=== PATIENT | male | born 1950 | race Two or more races ===

== ENCOUNTER → 2016-04-19 | Outpatient (CLI) | payer OTHER ==
[2016-04-19 09:43] LABS: Urine RBC None Seen /hpf (0 - 3)
[2016-04-19 10:02] LABS: Urine Bilirubin Negative (Negative); Urine Blood Negative /uL (Negative); Urine Color Yellow (Yellow); Urine Glucose Normal (Normal); Urine Ketone Negative (Negative); Urine Mucus FEW (None Seen); Urine Nitrite Negative (Negative); Urine Urobilinogen Normal (Negative)
[2016-04-19 10:43] LABS: Albumin 3.8 g/dL (3.4-5.0); Basophils # (auto) 0.2 uL; Basophils % (auto) 1.9 % (0.0-2.0); Bilirubin, Total 0.4 mg/dL (0.2-1.0); Calcium 8.7 mg/dL (8.5-10.1); Eosinophils # (auto) 0.5 uL; Hematocrit 51.7 % (41.0-53.0); Hemoglobin 16.5 g/dL (13.5-17.5); Lymphocytes # (auto) 1.5 uL; Lymphocytes % (auto) 14.5 % (10.0-50.0); Mean Corpuscular Hemoglobin 28.7 pg (28.0-32.0); Mean Corpuscular Volume 89.8 fL (80.0-100.0); Mean Platelet Volume 8.8 fL (7.4-10.4); Monocytes # (auto) 0.7 uL; Monocytes % (auto) 6.7 % (0.0-12.0); Neutrophils # (auto) 7.5 uL; Neutrophils % (auto) 71.9 % (37.0-80.0); Platelet Count (auto) 193 10^3/uL (140-450); Potassium 4.5 mmol/L (3.5-5.1); Red Cell Distribution Width 15.2 % (11.6-16.0); Total Protein 7.3 g/dL (6.4-8.2); White Blood Cell 10.4 10^3/uL (4.4-10.8)
[2016-04-20 05:05] LABS: Thyroid Peroxidase (TPO) Ab 7 IU/mL (0-34)
== END | disposition home or self-care (01) ==
LOC: LAB 08:42
PROVIDERS: ATTEND Internal Medicine
DX: M81.0 Age-related osteoporosis without current pathological fracture (principal)
CPT/HCPCS: 36415; 80053; 80061; 81001; 82043; 84153; 84439; 84443; 85025; 85652; 86225; 86235

== ENCOUNTER → 2016-06-07 | Outpatient (CLI) | payer OTHER | END | disposition home or self-care (01) | LOC: XYW 10:47 | PROVIDERS: ATTEND Internal Medicine | DX: Z01.818 Encounter for other preprocedural examination (principal); I05.0 Rheumatic mitral stenosis; I35.0 Nonrheumatic aortic (valve) stenosis; F17.200 Nicotine dependence, unspecified, uncomplicated | CPT/HCPCS: 93306 ==

== ENCOUNTER 2016-06-29 05:59 | Day surgery (SDC) | payer OTHER ==
[2016-06-24 11:20] LABS: Urine RBC None Seen /hpf (0 - 3)
[2016-06-24 11:22] LABS: DEFINITIVE VIEW TRANSMISSION; Hematocrit 52.8 % (41.0-53.0); Hemoglobin 17.2 g/dL (13.5-17.5); Mean Corpuscular Hemoglobin 28.8 pg (28.0-32.0); Mean Corpuscular Hgb Conc. 32.6 g/dL (32.0-36.0); Mean Corpuscular Volume 88.3 fL (80.0-100.0); Mean Platelet Volume 7.5 fL (7.4-10.4); Platelet Count (auto) 236 10^3/uL (140-450); White Blood Cell 10.6 10^3/uL (4.4-10.8)
[2016-06-24 11:26] LABS: Urine Bilirubin Negative (Negative); Urine Blood Negative /uL (Negative); Urine Color Yellow (Yellow); Urine Glucose Normal (Normal); Urine Ketone Negative (Negative); Urine Nitrite Negative (Negative); Urine Squamous Epithelial Cell FEW /hpf (<5); Urine Urobilinogen Normal (Negative)
[2016-06-24 11:30] LABS: Metamyelocytes % 0; Myelocytes % 0; Promyelocytes % 0; Reactive Lymphocytes 0
[2016-06-24 11:38] LABS: INR 0.96 (0.9-1.15); Prothrombin Time 10.4 sec (9.37-12.3)
[2016-06-24 11:39] LABS: Platelet Estimate Adequate; RBC Morphology Normal
[2016-06-24 11:45] LABS: Albumin 4.1 g/dL (3.4-5.0); Bilirubin, Total 0.5 mg/dL (0.2-1.0); Calcium 9.5 mg/dL (8.5-10.1); Potassium 4.5 mmol/L (3.5-5.1); Total Protein 7.9 g/dL (6.4-8.2)
[~2016-06-29] VITALS: Ht 160 cm; Wt 76.7 kg
[~2016-06-29 05:59] MED LIST: ALBUAER3 IN; BECL0.07 INH
[2016-06-29] MEDS ORDERED: LIDOCAINE 1% HCL (LOCAL ANESTH.) INJ 20ML MDV ONE (06:37)
[2016-06-29] MEDS ORDERED: BUPIVACAINE W/ EPINEPH 0.25% INJ 50ML MDV ONE (06:37)
[2016-06-29] MEDS ORDERED: BUPIVACAINE 0.25% INJ 50ML VIAL ONE (06:37)
[2016-06-29] MEDS ORDERED: LIDOCAINE W/ EPINEPHRINE 1 % INJ 30ML ONE (06:37)
[2016-06-29] MEDS ORDERED: ceFAZolin 1GM VL ONE (06:37)
[2016-06-29] MEDS ORDERED: CLINDAMYCIN 600MG IV 0 ML IV ONE (06:51)
[2016-06-29] MEDS ORDERED: CLINDAMYCIN 600MG IV 50 ML IV ONE (06:56)
[2016-06-29] MEDS ORDERED: BUPIVACAINE HCL 50 ML ONE (07:05)
[2016-06-29] MEDS ORDERED: PROPOFOL 10 MG/ML 20 ML IV ONE (07:18)
[2016-06-29] MEDS ORDERED: ROCURONIUM 10MG/ML 10ML VIAL IV ONE (07:19)
[2016-06-29] MEDS ORDERED: fentaNYL CITRATE 100 MCG/2 ML VL ONE (07:19)
[2016-06-29] MEDS ORDERED: LABETALOL HCL 5 MG/ML 4ML SYRINGE IV ONE ×4 (07:26→09:30)
[2016-06-29] MEDS ORDERED: MIDAZOLAM HCL 1MG/1ML-2 ML VIAL ONE (07:27)
[2016-06-29] MEDS ORDERED: NEOSTIGMINE 1 MG/ML INJ (10mg/10ML VIAL) ONE (08:21)
[2016-06-29] MEDS ORDERED: GLYCOPYRROLATE 0.2 MG/ML 1ML VIAL ONE (08:21)
[2016-06-29] MEDS ORDERED: HYDROmorphone HCL 2 MG/ML VL IV PRN (09:00)
[2016-06-29] MEDS ORDERED: ONDANSETRON HCL 4 MG/2 ML VIAL IV ONE (09:00)
[2016-06-29] MEDS ORDERED: ALBUTEROL SULF 2.5 MG/0.5ML(0.5%) NEB SOLN NEB ONE (09:15)
[2016-06-29] MEDS ORDERED: ALBUTEROL SULF 2.5 MG/0.5ML(0.5%) NEB SOLN ONE (09:17)
[2016-06-29] MEDS ORDERED: IPRATROPIUM BROM 0.5 MG/2.5ML INH SOL ONE (09:17)
[2016-06-29] MEDS ORDERED: IPRATROPIUM BROM 0.5 MG/2.5ML INH SOL NEB ONE (09:30)
[2016-06-29 10:45] VITALS: BP 103/52
== END 2016-06-29 10:59 | disposition home or self-care (01) ==
LOC: SUR 05:59
PROVIDERS: ATTEND Surgery
DX: K40.90 Unilateral inguinal hernia, without obstruction or gangrene, not specified as recurrent (principal); D17.6 Benign lipomatous neoplasm of spermatic cord; J45.909 Unspecified asthma, uncomplicated; Z87.891 Personal history of nicotine dependence
CPT/HCPCS: 36415; 49505; 55520; 80053; 81001; 85007; 85027; 85610; 85730; C1781; J2001; J2250; J2405; J2704; J3010; J3490; J0690

== ENCOUNTER 2016-07-12 07:46 | Inpatient (IN) | payer OTHER, MEDICAID ==
[~2016-07-12] VITALS: Ht 160 cm; Wt 74.2 kg
[2016-07-12 08:36] LABS: Basophils # (auto) 0 uL; Basophils % (auto) 0.1 % (0.0-2.0); DEFINITIVE VIEW TRANSMISSION; Eosinophils # (auto) 1.3 uL; Hematocrit 50.2 % (41.0-53.0); Hemoglobin 16.4 g/dL (13.5-17.5); Lymphocytes # (auto) 1.5 uL; Mean Corpuscular Hemoglobin 28.7 pg (28.0-32.0); Mean Corpuscular Hgb Conc. 32.7 g/dL (32.0-36.0); Mean Corpuscular Volume 87.8 fL (80.0-100.0); Mean Platelet Volume 7.5 fL (7.4-10.4); Monocytes # (auto) 0.5 uL; Monocytes % (auto) 3.4 % (0.0-12.0); Neutrophils # (auto) 11.6 uL; Neutrophils % (auto) 77.5 % (37.0-80.0); Platelet Count (auto) 268 10^3/uL (140-450); Red Cell Distribution Width 15.6 % (11.6-16.0); White Blood Cell 14.9 10^3/uL (4.4-10.8)
[2016-07-12 08:47] LABS: Calcium 9.1 mg/dL (8.5-10.1); Potassium 4.7 mmol/L (3.5-5.1)
[2016-07-12 08:49] LABS: INR 0.98 (0.9-1.15); Partial Thromboplastin Time 24.5 sec (22.64-33.71); Prothrombin Time 10.6 sec (9.37-12.3)
[2016-07-12 08:51] LABS: Bilirubin, Total 0.5 mg/dL (0.2-1.0); Total Protein 7.8 g/dL (6.4-8.2)
[2016-07-12] MEDS ORDERED: methylPREDNISolone SOD SUCC 125 MG/2 ML VL IV ONE (09:45)
[2016-07-12] MEDS ORDERED: IPRATROPIUM BROM 0.5 MG/2.5ML INH SOL NEB ONE (10:30)
[2016-07-12] MEDS ORDERED: ALBUTEROL SULF 2.5 MG/0.5ML(0.5%) NEB SOLN NEB ONE (10:30)
[2016-07-12] MEDS ORDERED: LEVOFLOXACIN 500MG 100 ML IV ONE (10:30)
[2016-07-12] MEDS ORDERED: IOHEXOL 350 MG/ML 100ML IJ ONE (11:44)
[2016-07-12] MEDS ORDERED: MORPHINE SULF INJ 2 MG/ML SYRINGE 1ML IV PRN ×2 (13:30)
[2016-07-12] MEDS ORDERED: DOCUSATE SOD 100 MG CAP PO PRN (13:30)
[2016-07-12] MEDS ORDERED: cloNIDine HCL 0.1 MG TAB PO PRN (13:30)
[2016-07-12] MEDS ORDERED: DEXTROSE (50%) 50ML SYRG IV PRN (13:30)
[2016-07-12] MEDS ORDERED: TEMAZEPAM 15 MG CAP PO PRN (13:30)
[2016-07-12] MEDS ORDERED: ACETAMINOPHEN 325 MG TAB PO PRN (13:30)
[2016-07-12] MEDS ORDERED: NITROGLYCERIN 0.4 MG SL TAB SL PRN (13:30)
[2016-07-12] MEDS ORDERED: ONDANSETRON HCL 4 MG/2 ML VIAL IV PRN (13:30)
[2016-07-12 13:42] VITALS: BP 140/79
[2016-07-12] MEDS: ASPirin-EC 81 mg tab PO SCH (13:45)
[2016-07-12] MEDS: SODIUM CHLOR 0.9% PF (SALINE LOCK) 10ML VIAL IV SCH ×2 (14:00→21:43)
[2016-07-12] MEDS: IPRATROPIUM BROM 0.5 MG/2.5ML INH SOL NEB SCH ×3 (14:49→22:14)
[2016-07-12] MEDS: ALBUTEROL SULF 2.5 MG/0.5ML(0.5%) NEB SOLN NEB SCH ×3 (14:49→22:14)
[2016-07-12] MEDS ORDERED: ASPI81CH43 (16:42)
[2016-07-12] MEDS: ACCU-CHEK COMFORT CURVE STRIP VI SCH ×2 (17:00→21:43)
[2016-07-12] MEDS: InsuLIN REG 1unit/0.01ml Soln (100units/ml) SC SCH ×2 (17:00→21:43)
[2016-07-12 17:23] LABS: B-Type Natriuretic Peptide 29.34 pg/mL (0-100)
[2016-07-12 17:25] LABS: Temperature: 23.5 C (20.0-25.0)
[2016-07-12 20:00] VITALS: BP 150/67
[2016-07-12 22:00] VITALS: BP 150/67
[2016-07-12] MEDS ORDERED: ASPI81CH49 PO (22:53)
[2016-07-12] MEDS: methylPREDNISolone SOD SUCC 40 MG/ML VL IV SCH (23:55)
[2016-07-13] MEDS: IPRATROPIUM BROM 0.5 MG/2.5ML INH SOL NEB SCH ×6 (02:15→22:03)
[2016-07-13] MEDS: ALBUTEROL SULF 2.5 MG/0.5ML(0.5%) NEB SOLN NEB SCH ×6 (02:16→22:03)
[2016-07-13 05:30] VITALS: BP 139/69
[2016-07-13] MEDS: SODIUM CHLOR 0.9% PF (SALINE LOCK) 10ML VIAL IV SCH ×3 (05:34→22:37)
[2016-07-13] MEDS: methylPREDNISolone SOD SUCC 40 MG/ML VL IV SCH ×3 (05:34→17:36)
[2016-07-13 06:06] LABS: Hematocrit 47.9 % (41.0-53.0); Hemoglobin 15.6 g/dL (13.5-17.5); Mean Corpuscular Hemoglobin 28.9 pg (28.0-32.0); Mean Corpuscular Hgb Conc. 32.6 g/dL (32.0-36.0); Mean Corpuscular Volume 88.7 fL (80.0-100.0); Mean Platelet Volume 7.9 fL (7.4-10.4); Platelet Count (auto) 251 10^3/uL (140-450); Red Cell Distribution Width 15.8 % (11.6-16.0); SUSPECT VIEW TRANSMISSION; White Blood Cell 19.3 10^3/uL (4.4-10.8)
[2016-07-13] MEDS: ACCU-CHEK COMFORT CURVE STRIP VI SCH ×4 (06:14→22:00)
[2016-07-13] MEDS: InsuLIN REG 1unit/0.01ml Soln (100units/ml) SC SCH ×4 (06:15→22:00)
[2016-07-13 06:28] LABS: Metamyelocytes % 0; Myelocytes % 0; Promyelocytes % 0; Reactive Lymphocytes 0
[2016-07-13 06:32] LABS: Albumin 3.4 g/dL (3.4-5.0); BUN/Creatinine Ratio 19.5; Bilirubin, Total 0.2 mg/dL (0.2-1.0); Calcium 8.8 mg/dL (8.5-10.1); Potassium 4.5 mmol/L (3.5-5.1); Total Protein 7.1 g/dL (6.4-8.2)
[2016-07-13 06:59] LABS: Hypersegmented Neutrophils Present; Platelet Estimate Adequate
[2016-07-13 07:00] LABS: Anisocytosis Slight
[2016-07-13 08:00] VITALS: BP 121/77
[2016-07-13 09:00] VITALS: BP 121/77
[2016-07-13] MEDS: ASPirin-EC 81 mg tab PO SCH (09:21)
[2016-07-13] MEDS: MULTIPLE VITAMIN TAB PO SCH (09:21)
[2016-07-13] MEDS ORDERED: LEVOFLOXACIN 500MG 100 ML IV SCH (10:00)
[2016-07-13] MEDS ORDERED: AZITHROMYCIN 500MG/D5W 250ML 250 ML IV ONE (10:30)
[2016-07-13 13:41] VITALS: BP 133/60
[2016-07-13 16:37] VITALS: BP 135/78
[2016-07-13 22:00] VITALS: BP 114/69
[2016-07-13] MEDS: HYDROcodone-ACET 5/325MG TAB PO PRN (22:37)
[2016-07-14] MEDS: methylPREDNISolone SOD SUCC 40 MG/ML VL IV SCH ×3 (00:18→22:03)
[2016-07-14 05:30] VITALS: BP 125/69
[2016-07-14] MEDS: IPRATROPIUM BROM 0.5 MG/2.5ML INH SOL NEB SCH ×5 (06:28→22:05)
[2016-07-14] MEDS: ALBUTEROL SULF 2.5 MG/0.5ML(0.5%) NEB SOLN NEB SCH ×5 (06:28→22:05)
[2016-07-14] MEDS: SODIUM CHLOR 0.9% PF (SALINE LOCK) 10ML VIAL IV SCH ×3 (06:40→22:01)
[2016-07-14] MEDS: ACCU-CHEK COMFORT CURVE STRIP VI SCH ×4 (06:41→22:00)
[2016-07-14] MEDS: InsuLIN REG 1unit/0.01ml Soln (100units/ml) SC SCH ×4 (07:06→22:00)
[2016-07-14 07:19] LABS: Hematocrit 49.3 % (41.0-53.0); Hemoglobin 16.1 g/dL (13.5-17.5); Mean Corpuscular Hemoglobin 28.8 pg (28.0-32.0); Mean Corpuscular Hgb Conc. 32.6 g/dL (32.0-36.0); Mean Corpuscular Volume 88.4 fL (80.0-100.0); Mean Platelet Volume 8.1 fL (7.4-10.4); Platelet Count (auto) 283 10^3/uL (140-450); Red Cell Distribution Width 15.9 % (11.6-16.0); SUSPECT VIEW TRANSMISSION; White Blood Cell 21.4 10^3/uL (4.4-10.8)
[2016-07-14 07:31] LABS: Metamyelocytes % 0; Myelocytes % 0; Promyelocytes % 0; Reactive Lymphocytes 0
[2016-07-14 07:37] LABS: Albumin 3.5 g/dL (3.4-5.0); BUN/Creatinine Ratio 19.4; Bilirubin, Total 0.2 mg/dL (0.2-1.0); Calcium 8.9 mg/dL (8.5-10.1); Potassium 4.4 mmol/L (3.5-5.1); Total Protein 7.3 g/dL (6.4-8.2)
[2016-07-14 08:00] VITALS: BP 134/77
[2016-07-14 09:00] VITALS: BP 134/77
[2016-07-14] MEDS: cefTRIAXone 1GM/50ML D5W 50 ML IV SCH (10:42)
[2016-07-14] MEDS: ASPirin-EC 81 mg tab PO SCH (10:43)
[2016-07-14] MEDS: AZITHROMYCIN 500MG/D5W 250ML 250 ML IV SCH (10:43)
[2016-07-14] MEDS: MULTIPLE VITAMIN TAB PO SCH (10:43)
[2016-07-14] MEDS: HYDROcodone-ACET 5/325MG TAB PO PRN (12:10)
[2016-07-14 13:49] VITALS: BP 126/67
[2016-07-14 14:30] LABS: Platelet Estimate Adequate
[2016-07-14 16:39] VITALS: BP 132/77
[2016-07-14 22:00] VITALS: BP 117/73
[2016-07-14] MEDS: BUDESONIDE (INHALATION) 0.5 MG/2 ML NEB NEB SCH (22:05)
[2016-07-15] MEDS: ALBUTEROL SULF 2.5 MG/0.5ML(0.5%) NEB SOLN NEB SCH ×6 (02:00→22:07)
[2016-07-15] MEDS: IPRATROPIUM BROM 0.5 MG/2.5ML INH SOL NEB SCH ×6 (02:00→22:07)
[2016-07-15 05:44] VITALS: BP 123/71
[2016-07-15] MEDS: SODIUM CHLOR 0.9% PF (SALINE LOCK) 10ML VIAL IV SCH ×3 (06:00→22:19)
[2016-07-15 06:16] LABS: Basophils # (auto) 0.1 uL; Basophils % (auto) 0.4 % (0.0-2.0); Eosinophils # (auto) 0 uL; Hematocrit 48.4 % (41.0-53.0); Hemoglobin 15.7 g/dL (13.5-17.5); Lymphocytes # (auto) 0.7 uL; Lymphocytes % (auto) 4.5 % (10.0-50.0); Mean Corpuscular Hemoglobin 28.7 pg (28.0-32.0); Mean Corpuscular Hgb Conc. 32.5 g/dL (32.0-36.0); Mean Corpuscular Volume 88.3 fL (80.0-100.0); Mean Platelet Volume 7.7 fL (7.4-10.4); Monocytes # (auto) 0.2 uL; Monocytes % (auto) 1.5 % (0.0-12.0); Neutrophils # (auto) 13.6 uL; Neutrophils % (auto) 93.6 % (37.0-80.0); Platelet Count (auto) 249 10^3/uL (140-450); Red Cell Distribution Width 15.8 % (11.6-16.0); White Blood Cell 14.5 10^3/uL (4.4-10.8)
[2016-07-15 06:24] LABS: BUN/Creatinine Ratio 21.9; Calcium 8.5 mg/dL (8.5-10.1); Potassium 4.9 mmol/L (3.5-5.1)
[2016-07-15] MEDS: ACCU-CHEK COMFORT CURVE STRIP VI SCH ×4 (06:40→22:19)
[2016-07-15] MEDS: InsuLIN REG 1unit/0.01ml Soln (100units/ml) SC SCH ×4 (06:40→22:00)
[2016-07-15 08:00] VITALS: BP_SYST 127; BP_SYST 134; BP_DIAS 70; BP_DIAS 77
[2016-07-15] MEDS: HYDROcodone-ACET 5/325MG TAB PO PRN (08:50)
[2016-07-15] MEDS: methylPREDNISolone SOD SUCC 40 MG/ML VL IV SCH ×2 (09:06→22:19)
[2016-07-15] MEDS: cefTRIAXone 1GM/50ML D5W 50 ML IV SCH (09:06)
[2016-07-15] MEDS: MULTIPLE VITAMIN TAB PO SCH (09:08)
[2016-07-15] MEDS: ASPirin-EC 81 mg tab PO SCH (09:08)
[2016-07-15] MEDS: AZITHROMYCIN 500MG/D5W 250ML 250 ML IV SCH (09:09)
[2016-07-15] MEDS: BUDESONIDE (INHALATION) 0.5 MG/2 ML NEB NEB SCH ×2 (10:08→22:07)
[2016-07-15 10:33] VITALS: BP 123/71
[2016-07-15 13:00] VITALS: BP 136/81
[2016-07-15 17:00] VITALS: BP 137/78
[2016-07-15 22:00] VITALS: BP 138/83
[2016-07-16] MEDS: IPRATROPIUM BROM 0.5 MG/2.5ML INH SOL NEB SCH ×6 (02:02→22:30)
[2016-07-16] MEDS: ALBUTEROL SULF 2.5 MG/0.5ML(0.5%) NEB SOLN NEB SCH ×6 (02:03→22:30)
[2016-07-16 05:00] VITALS: BP 147/92
[2016-07-16] MEDS: SODIUM CHLOR 0.9% PF (SALINE LOCK) 10ML VIAL IV SCH ×3 (06:28→22:01)
[2016-07-16] MEDS: InsuLIN REG 1unit/0.01ml Soln (100units/ml) SC SCH ×4 (06:33→22:06)
[2016-07-16] MEDS: ACCU-CHEK COMFORT CURVE STRIP VI SCH ×4 (06:33→22:01)
[2016-07-16 06:42] LABS: Basophils # (auto) 0.1 uL; Basophils % (auto) 0.7 % (0.0-2.0); Eosinophils # (auto) 0 uL; Hematocrit 49.6 % (41.0-53.0); Hemoglobin 16.1 g/dL (13.5-17.5); Lymphocytes # (auto) 0.9 uL; Lymphocytes % (auto) 7.2 % (10.0-50.0); Mean Corpuscular Hemoglobin 28.7 pg (28.0-32.0); Mean Corpuscular Hgb Conc. 32.4 g/dL (32.0-36.0); Mean Corpuscular Volume 88.4 fL (80.0-100.0); Mean Platelet Volume 7.6 fL (7.4-10.4); Monocytes # (auto) 0.3 uL; Monocytes % (auto) 2.7 % (0.0-12.0); Neutrophils # (auto) 11.5 uL; Neutrophils % (auto) 89.4 % (37.0-80.0); Platelet Count (auto) 276 10^3/uL (140-450); Red Cell Distribution Width 15.8 % (11.6-16.0); White Blood Cell 12.8 10^3/uL (4.4-10.8)
[2016-07-16 07:09] LABS: BUN/Creatinine Ratio 21.6; Calcium 8.6 mg/dL (8.5-10.1); Potassium 4.8 mmol/L (3.5-5.1)
[2016-07-16 09:00] VITALS: BP 133/75
[2016-07-16] MEDS: BUDESONIDE (INHALATION) 0.5 MG/2 ML NEB NEB SCH ×2 (09:55→22:30)
[2016-07-16] MEDS: cefTRIAXone 1GM/50ML D5W 50 ML IV SCH (10:29)
[2016-07-16] MEDS: methylPREDNISolone SOD SUCC 40 MG/ML VL IV SCH ×2 (10:29→22:01)
[2016-07-16] MEDS: ASPirin-EC 81 mg tab PO SCH (10:30)
[2016-07-16] MEDS: MULTIPLE VITAMIN TAB PO SCH (10:30)
[2016-07-16] MEDS: AZITHROMYCIN 500MG/D5W 250ML 250 ML IV SCH (11:35)
[2016-07-16 13:00] VITALS: BP 124/80
[2016-07-16 17:00] VITALS: BP 142/81
[2016-07-16 21:50] VITALS: BP 145/80
[2016-07-16] MEDS: guaiFENesin-DEXTROMETHORPHAN 5ML SYR PO PRN (22:01)
[2016-07-17] MEDS: ALBUTEROL SULF 2.5 MG/0.5ML(0.5%) NEB SOLN NEB SCH ×6 (02:00→23:21)
[2016-07-17] MEDS: IPRATROPIUM BROM 0.5 MG/2.5ML INH SOL NEB SCH ×6 (02:00→23:21)
[2016-07-17 05:36] VITALS: BP 144/85
[2016-07-17 05:59] LABS: Basophils # (auto) 0.1 uL; Basophils % (auto) 0.4 % (0.0-2.0); Eosinophils # (auto) 0 uL; Hemoglobin 16.3 g/dL (13.5-17.5); Lymphocytes # (auto) 1.2 uL; Lymphocytes % (auto) 8.1 % (10.0-50.0); Mean Corpuscular Hemoglobin 28.8 pg (28.0-32.0); Mean Corpuscular Hgb Conc. 32.5 g/dL (32.0-36.0); Mean Corpuscular Volume 88.5 fL (80.0-100.0); Mean Platelet Volume 7.6 fL (7.4-10.4); Monocytes # (auto) 0.6 uL; Monocytes % (auto) 4.5 % (0.0-12.0); Neutrophils # (auto) 12.4 uL; Platelet Count (auto) 265 10^3/uL (140-450); White Blood Cell 14.3 10^3/uL (4.4-10.8)
[2016-07-17] MEDS: ACCU-CHEK COMFORT CURVE STRIP VI SCH ×4 (06:34→22:08)
[2016-07-17] MEDS: SODIUM CHLOR 0.9% PF (SALINE LOCK) 10ML VIAL IV SCH ×3 (06:34→22:07)
[2016-07-17] MEDS: InsuLIN REG 1unit/0.01ml Soln (100units/ml) SC SCH ×4 (06:35→22:00)
[2016-07-17 09:00] VITALS: BP 126/76
[2016-07-17] MEDS: cefTRIAXone 1GM/50ML D5W 50 ML IV SCH (09:01)
[2016-07-17] MEDS: BUDESONIDE (INHALATION) 0.5 MG/2 ML NEB NEB SCH ×2 (10:20→23:22)
[2016-07-17] MEDS: ASPirin-EC 81 mg tab PO SCH (10:41)
[2016-07-17] MEDS: MULTIPLE VITAMIN TAB PO SCH (10:41)
[2016-07-17] MEDS: guaiFENesin-DEXTROMETHORPHAN 5ML SYR PO PRN (10:43)
[2016-07-17] MEDS: AZITHROMYCIN 500MG/D5W 250ML 250 ML IV SCH (10:43)
[2016-07-17] MEDS: methylPREDNISolone SOD SUCC 40 MG/ML VL IV SCH ×2 (10:43→22:08)
[2016-07-17 13:00] VITALS: BP 122/74
[2016-07-17 17:00] VITALS: BP 106/48
[2016-07-17 22:00] VITALS: BP 132/77
[2016-07-18] MEDS: IPRATROPIUM BROM 0.5 MG/2.5ML INH SOL NEB SCH ×4 (02:00→14:00)
[2016-07-18] MEDS: ALBUTEROL SULF 2.5 MG/0.5ML(0.5%) NEB SOLN NEB SCH ×4 (02:00→14:00)
[2016-07-18 05:00] VITALS: BP 131/82
[2016-07-18 06:50] VITALS: BP 131/82
[2016-07-18] MEDS: InsuLIN REG 1unit/0.01ml Soln (100units/ml) SC SCH ×2 (06:56→11:08)
[2016-07-18] MEDS: SODIUM CHLOR 0.9% PF (SALINE LOCK) 10ML VIAL IV SCH (06:56)
[2016-07-18] MEDS: ACCU-CHEK COMFORT CURVE STRIP VI SCH ×2 (06:56→10:58)
[2016-07-18] MEDS: cefTRIAXone 1GM/50ML D5W 50 ML IV SCH (08:31)
[2016-07-18 09:00] VITALS: BP 132/85
[2016-07-18] MEDS: BUDESONIDE (INHALATION) 0.5 MG/2 ML NEB NEB SCH (09:57)
[2016-07-18] MEDS: AZITHROMYCIN 500MG/D5W 250ML 250 ML IV SCH (10:24)
[2016-07-18] MEDS: MULTIPLE VITAMIN TAB PO SCH (10:24)
[2016-07-18] MEDS: ASPirin-EC 81 mg tab PO SCH (10:24)
[2016-07-18] MEDS: methylPREDNISolone SOD SUCC 40 MG/ML VL IV SCH (10:24)
[2016-07-18] MEDS: guaiFENesin-DEXTROMETHORPHAN 5ML SYR PO PRN (10:56)
[2016-07-18 13:00] VITALS: BP 128/73
== END 2016-07-18 14:30 | disposition home or self-care (01) | DRG 871 ==
LOC: ER 07:50 → TELE 07:51 → TELE-E-ADS 15:47 → TELE-CENTR 19:29 → CENTRAL 07-15 10:35
PROVIDERS: ADMIT Internal Medicine; ATTEND Internal Medicine
DX: A41.9 Sepsis, unspecified organism (principal); J15.5 Pneumonia due to Escherichia coli; J96.21 Acute and chronic respiratory failure with hypoxia; J44.0 Chronic obstructive pulmonary disease with (acute) lower respiratory infection; J44.1 Chronic obstructive pulmonary disease with (acute) exacerbation; E11.21 Type 2 diabetes mellitus with diabetic nephropathy; E11.22 Type 2 diabetes mellitus with diabetic chronic kidney disease; I12.9 Hypertensive chronic kidney disease with stage 1 through stage 4 chronic kidney disease, or unspecified chronic kidney disease; J44.9 Chronic obstructive pulmonary disease, unspecified; N18.2 Chronic kidney disease, stage 2 (mild); Z83.3 Family history of diabetes mellitus
CPT/HCPCS: 36415; 71020; 71275; 80048; 80053; 82962; 83036; 83605; 83880; 84443; 84484; 85007; 85025; 85027; 85379; 85610; 85730; 87040; 87070; 87077; 87081; 87186; 87205; 93005; 94640; 94761; 96365; 96375; J0696; J1815; J1956

== ENCOUNTER 2016-09-26 10:57 | Emergency (ER) | payer OTHER, MEDICAID ==
[~2016-09-26] VITALS: Ht 160 cm; Wt 76.2 kg
[~2016-09-26 10:57] MED LIST changes: +ASPI81CH49 PO
[2016-09-26 11:38] LABS: Urine Bilirubin Negative (Negative); Urine Blood Negative /uL (Negative); Urine Color Yellow (Yellow); Urine Glucose Normal (Normal); Urine Ketone Negative (Negative); Urine Mucus FEW (None Seen); Urine Nitrite Negative (Negative); Urine RBC <1 /hpf (0 - 3); Urine Urobilinogen Normal (Negative); Urine pH 5.5 (5.0-8.0)
[2016-09-26 11:41] LABS: CONDITION Y; DEFINITIVE SEE PRINTOUT; Hematocrit 47.3 % (41.0-53.0); Hemoglobin 15.7 g/dL (13.5-17.5); Mean Corpuscular Hemoglobin 29.3 pg (28.0-32.0); Mean Corpuscular Hgb Conc. 33.2 g/dL (32.0-36.0); Mean Corpuscular Volume 88.3 fL (80.0-100.0); Mean Platelet Volume 7.4 fL (7.4-10.4); Platelet Count (auto) 246 10^3/uL (140-450); White Blood Cell 10.8 10^3/uL (4.4-10.8)
[2016-09-26 11:44] LABS: Metamyelocytes % 0; Myelocytes % 0; Promyelocytes % 0; Reactive Lymphocytes 0
[2016-09-26 12:04] LABS: Platelet Estimate Adequate; RBC Morphology Normal
[2016-09-26 12:10] LABS: Albumin 3.8 g/dL (3.4-5.0); BUN/Creatinine Ratio 12.2; Bilirubin, Total 0.6 mg/dL (0.2-1.0); Calcium 9.1 mg/dL (8.5-10.1); Magnesium 2.3 mg/dL (1.6-2.6); Potassium 4.2 mmol/L (3.5-5.1); Total Protein 7.2 g/dL (6.4-8.2)
[2016-09-26] MEDS ORDERED: ALBUTEROL SULF 2.5 MG/0.5ML(0.5%) NEB SOLN NEB ONE (15:00)
[2016-09-26] MEDS ORDERED: methylPREDNISolone SOD SUCC 125 MG/2 ML VL IV ONE (15:00)
[2016-09-26] MEDS ORDERED: IPRATROPIUM BROM 0.5 MG/2.5ML INH SOL NEB ONE (15:00)
[2016-09-26] MEDS ORDERED: SODIUM CHLORIDE 0.9% 500 ML IV ONE (15:00)
[2016-09-26 15:59] VITALS: BP 125/72
== END 2016-09-26 17:47 | disposition home or self-care (01) ==
LOC: ER 10:57
DX: J44.1 Chronic obstructive pulmonary disease with (acute) exacerbation (principal); S70.01XA Contusion of right hip, initial encounter; M16.11 Unilateral primary osteoarthritis, right hip; E11.9 Type 2 diabetes mellitus without complications; I10 Essential (primary) hypertension; W18.39XA Other fall on same level, initial encounter; Y93.89 Activity, other specified; Y92.89 Other specified places as the place of occurrence of the external cause; Y99.8 Other external cause status
CPT/HCPCS: 36415; 71020; 73502; 80053; 81001; 83735; 84484; 85007; 85027; 93005; 94640; 96361; 96374; 99285; J2930; J7030

== ENCOUNTER → 2016-10-03 | Outpatient (CLI) | payer OTHER, MEDICAID ==
[~2016-10-03] MED LIST changes: +ALBUTEROL SULF 2.5 MG/0.5ML(0.5%) NEB SOLN ONE
== END | disposition home or self-care (01) ==
LOC: RT 08:46
PROVIDERS: ATTEND Internal Medicine Pulmonary Disease
DX: J44.9 Chronic obstructive pulmonary disease, unspecified (principal); J45.909 Unspecified asthma, uncomplicated; I10 Essential (primary) hypertension; E11.9 Type 2 diabetes mellitus without complications
CPT/HCPCS: 94060; 94640

== ENCOUNTER 2016-10-12 23:21 | Inpatient (IN) | payer OTHER, MEDICAID ==
[~2016-10-12] VITALS: Ht 160 cm; Wt 68.0 kg
[~2016-10-12 23:21] MED LIST changes: -ALBUTEROL SULF 2.5 MG/0.5ML(0.5%) NEB SOLN ONE
[2016-10-12] MEDS ORDERED: IPRATROPIUM BROM 0.5 MG/2.5ML INH SOL NEB ONE (23:30)
[2016-10-12] MEDS ORDERED: methylPREDNISolone SOD SUCC 125 MG/2 ML VL IV ONE (23:30)
[2016-10-12] MEDS ORDERED: ALBUTEROL SULF 2.5 MG/0.5ML(0.5%) NEB SOLN NEB ONE (23:30)
[2016-10-12 23:40] LABS: Allen Test Yes; Base Excess -4.7 mmol/L (-2.0-2.0); Blood 02Sat 97.3 % (96-100); Blood COHb 0.3 % (0.5-1.5); Blood MetHb 0.4 % (0.0-1.5); HCO3 19.6 mmol/L (22-26.0); HHb 2.7 % (0.0-5.0); MODE MASK - BIPAP; O2Hb 96.6 % (94.0-97.0); PCO2 34.3 mmHg (35.0-45.0); PCO2(T) 34.3 mmHg (35.0-45.0); PIP 12; PO2 112.2 mmHg (80.0-100.0); PO2(T) 112.2 mmHg (80.0-100.0); Sample Type Arterial; pH 7.374 (7.350-7.450)
[2016-10-12 23:49] LABS: Basophils # (auto) 0.1 uL; Basophils % (auto) 0.8 % (0.0-2.0); DEFINITIVE SEE PRINTOUT; Eosinophils # (auto) 1.4 uL; Eosinophils % (auto) 10.2 % (0.0-7.0); Hematocrit 48.7 % (41.0-53.0); Hemoglobin 15.9 g/dL (13.5-17.5); Lymphocytes # (auto) 2.6 uL; Lymphocytes % (auto) 19.8 % (10.0-50.0); Mean Corpuscular Hemoglobin 28.8 pg (28.0-32.0); Mean Corpuscular Hgb Conc. 32.6 g/dL (32.0-36.0); Mean Corpuscular Volume 88.4 fL (80.0-100.0); Mean Platelet Volume 7.7 fL (7.4-10.4); Monocytes # (auto) 1.1 uL; Monocytes % (auto) 7.9 % (0.0-12.0); Neutrophils # (auto) 8.2 uL; Neutrophils % (auto) 61.3 % (37.0-80.0); Platelet Count (auto) 196 10^3/uL (140-450); Red Cell Distribution Width 14.6 % (11.6-16.0); SUSPECT SEE PRINTOUT; White Blood Cell 13.4 10^3/uL (4.4-10.8)
[2016-10-13 00:07] LABS: Albumin 3.6 g/dL (3.4-5.0); BUN/Creatinine Ratio 17.2; Calcium 8.4 mg/dL (8.5-10.1); Magnesium 2.1 mg/dL (1.6-2.6); Potassium 4.1 mmol/L (3.5-5.1)
[2016-10-13 00:12] LABS: Bilirubin, Total 0.4 mg/dL (0.2-1.0); Total Protein 7.5 g/dL (6.4-8.2)
[2016-10-13 00:22] LABS: B-Type Natriuretic Peptide 15.03 pg/mL (0-100)
[2016-10-13 00:34] LABS: Temperature: 24.3 C (20.0-25.0)
[2016-10-13 03:19] VITALS: BP 135/77
[2016-10-13] MEDS ORDERED: ALBUTEROL SULF 2.5 MG/0.5ML(0.5%) NEB SOLN NEB ONE (04:15)
[2016-10-13] MEDS ORDERED: IPRATROPIUM BROM 0.5 MG/2.5ML INH SOL NEB ONE (04:15)
[2016-10-13] MEDS ORDERED: SODIUM CHLORIDE 0.9% 1,000 ML IV SCH (05:12)
[2016-10-13] MEDS ORDERED: HYDROmorphone HCL 2 MG/ML VL IV PRN (05:15)
[2016-10-13] MEDS ORDERED: ONDANSETRON HCL 4 MG/2 ML VIAL IV PRN (05:15)
[2016-10-13] MEDS ORDERED: ASPirin 81 mg TAB PO ONE (05:30)
[2016-10-13] MEDS: ALBUTEROL SULF 2.5 MG/0.5ML(0.5%) NEB SOLN NEB SCH ×5 (05:40→22:43)
[2016-10-13] MEDS: IPRATROPIUM BROM 0.5 MG/2.5ML INH SOL NEB SCH ×5 (05:40→22:43)
[2016-10-13] MEDS: AZITHROMYCIN 500MG/D5W 250ML 250 ML IV SCH ×2 (05:46→11:13)
[2016-10-13] MEDS ORDERED: ENOXAPARIN SOD 30 MG/0.3 ML SYRINGE SC SCH (10:00)
[2016-10-13] MEDS ORDERED: LEVOFLOXACIN 500MG 100 ML IV SCH (10:00)
[2016-10-13] MEDS ORDERED: PANTOPRAZOLE SODIUM 40 MG/10 ML VIAL IV SCH (10:00)
[2016-10-13 10:34] VITALS: BP 125/77
[2016-10-13] MEDS: ENOXAPARIN SOD 40 MG/0.4 ML SYRINGE SC SCH (11:10)
[2016-10-13] MEDS: methylPREDNISolone SOD SUCC 125 MG/2 ML VL IV SCH ×2 (11:12→23:01)
[2016-10-13] MEDS ORDERED: METOPROLOL TARTRATE 25 MG TAB PO ONE (12:15)
[2016-10-13] MEDS ORDERED: PANTOPRAZOLE 40 MG TAB PO ONE (12:15)
[2016-10-13 13:01] VITALS: BP 120/60
[2016-10-13 16:07] LABS: Urine RBC None Seen /hpf (0 - 3)
[2016-10-13 16:28] LABS: Urine Bilirubin Negative (Negative); Urine Blood Negative /uL (Negative); Urine Color Yellow (Yellow); Urine Ketone TRACE (Negative); Urine Nitrite Negative (Negative); Urine Urobilinogen Normal (Negative); Urine pH 5.5 (5.0-8.0)
[2016-10-13 16:36] VITALS: BP 135/75
[2016-10-13 16:40] LABS: Urine Glucose 3+ mg/dL (Normal)
[2016-10-13 20:00] VITALS: BP 142/80
[2016-10-13 21:36] VITALS: BP 142/80
[2016-10-13] MEDS ORDERED: ATORVASTATIN 20 MG TAB PO SCH (22:00)
[2016-10-13] MEDS: METOPROLOL TARTRATE 25 MG TAB PO SCH (23:02)
[2016-10-14] MEDS: IPRATROPIUM BROM 0.5 MG/2.5ML INH SOL NEB SCH ×4 (03:17→13:55)
[2016-10-14] MEDS: ALBUTEROL SULF 2.5 MG/0.5ML(0.5%) NEB SOLN NEB SCH ×4 (03:17→13:56)
[2016-10-14 05:06] VITALS: BP 136/79
[2016-10-14 07:10] LABS: CONDITION Y; Hematocrit 43.9 % (41.0-53.0); Hemoglobin 14.6 g/dL (13.5-17.5); Mean Corpuscular Hemoglobin 29.7 pg (28.0-32.0); Mean Corpuscular Hgb Conc. 33.3 g/dL (32.0-36.0); Mean Corpuscular Volume 89.4 fL (80.0-100.0); Mean Platelet Volume 7.9 fL (7.4-10.4); Platelet Count (auto) 215 10^3/uL (140-450); Red Cell Distribution Width 15.9 % (11.6-16.0); SUSPECT SEE PRINTOUT; White Blood Cell 17.8 10^3/uL (4.4-10.8)
[2016-10-14 07:28] LABS: Albumin 3.2 g/dL (3.4-5.0); Calcium 8.6 mg/dL (8.5-10.1); Metamyelocytes % 0; Myelocytes % 0; Potassium 4.4 mmol/L (3.5-5.1); Promyelocytes % 0; Reactive Lymphocytes 0
[2016-10-14 07:31] LABS: BUN/Creatinine Ratio 16.7
[2016-10-14 07:33] LABS: Bilirubin, Total 0.2 mg/dL (0.2-1.0); Total Protein 6.5 g/dL (6.4-8.2)
[2016-10-14 07:53] LABS: Platelet Estimate Adequate; RBC Morphology Normal
[2016-10-14 08:00] VITALS: BP 135/72
[2016-10-14 09:00] VITALS: BP 135/72
[2016-10-14] MEDS ORDERED: PANTOPRAZOLE 40 MG TAB PO SCH (10:00)
[2016-10-14] MEDS ORDERED: ASPirin 81 mg TAB PO SCH (10:00)
[2016-10-14] MEDS: AZITHROMYCIN 500MG/D5W 250ML 250 ML IV SCH (10:10)
[2016-10-14] MEDS: ENOXAPARIN SOD 40 MG/0.4 ML SYRINGE SC SCH (10:11)
[2016-10-14] MEDS: methylPREDNISolone SOD SUCC 125 MG/2 ML VL IV SCH (10:11)
[2016-10-14] MEDS: METOPROLOL TARTRATE 25 MG TAB PO SCH (10:12)
[2016-10-14] MEDS ORDERED: MUPI2OIN10 TOP (12:53)
[2016-10-14] MEDS ORDERED: ASPI81CH43 PO (12:56)
[2016-10-14] MEDS ORDERED: ATOR20TA50 PO (12:56)
[2016-10-14] MEDS ORDERED: MET25T PO (12:56)
[2016-10-14 13:00] VITALS: BP 111/63
[2016-10-14 14:57] VITALS: BP 111/63
== END 2016-10-14 16:40 | disposition home or self-care (01) | DRG 189 ==
LOC: ER 23:21 → EDBD 23:21 → TELE 23:22 → TELE-E-ADS 10-13 07:36 → TELE-CENTR 10-13 10:02
PROVIDERS: ADMIT Family Medicine; ATTEND Internal Medicine
PROC: 5A09357 Assistance with Respiratory Ventilation, Less than 24 Consecutive Hours, Continuous Positive Airway Pressure (ICD-10-PCS; principal; 2016-10-12)
DX: J96.20 Acute and chronic respiratory failure, unspecified whether with hypoxia or hypercapnia (principal); J44.1 Chronic obstructive pulmonary disease with (acute) exacerbation; J45.909 Unspecified asthma, uncomplicated; E11.9 Type 2 diabetes mellitus without complications; I10 Essential (primary) hypertension; E66.9 Obesity, unspecified; E66.01 Morbid (severe) obesity due to excess calories; I25.10 Atherosclerotic heart disease of native coronary artery without angina pectoris; T38.0X5A Adverse effect of glucocorticoids and synthetic analogues, initial encounter; Z22.322 Carrier or suspected carrier of Methicillin resistant Staphylococcus aureus; Z72.0 Tobacco use; Z99.81 Dependence on supplemental oxygen; Z68.26 Body mass index [BMI] 26.0-26.9, adult
CPT/HCPCS: 36415; 36600; 71010; 80053; 81001; 82805; 83735; 83880; 84484; 85007; 85025; 85027; 87040; 87081; 93005; 94640; 94660; 96374; 99291; C9113; J1956

== ENCOUNTER → 2016-11-10 | Outpatient (CLI) | payer OTHER, MEDICAID ==
[~2016-11-10] MED LIST changes: +ALBUTEROL SULF 2.5 MG/0.5ML(0.5%) NEB SOLN ONE; +ASPI81CH43 PO; +ATOR20TA50 PO; +MET25T PO; +MUPI2OIN10 TOP
== END | disposition home or self-care (01) ==
LOC: RT 08:54
PROVIDERS: ATTEND Internal Medicine Pulmonary Disease
DX: J44.9 Chronic obstructive pulmonary disease, unspecified (principal)
CPT/HCPCS: 94060

== ENCOUNTER → 2017-01-16 | Outpatient (CLI) | payer OTHER, MEDICAID ==
[~2017-01-16] MED LIST changes: -ALBUTEROL SULF 2.5 MG/0.5ML(0.5%) NEB SOLN ONE
[2017-01-16 09:04] LABS: Cholesterol 196 mg/dL (< 200); HDL Cholesterol 48 mg/dL (40-59); LDL Cholesterol 137 mg/dL (< 100); Triglycerides 137 mg/dL (< 150)
== END | disposition home or self-care (01) ==
LOC: LAB 08:17
PROVIDERS: ATTEND Internal Medicine
DX: E11.9 Type 2 diabetes mellitus without complications (principal); E78.00 Pure hypercholesterolemia, unspecified; J44.9 Chronic obstructive pulmonary disease, unspecified
CPT/HCPCS: 36415; 80061; 83036

== ENCOUNTER → 2017-01-20 | Outpatient (CLI) | payer OTHER, MEDICAID | END | disposition home or self-care (01) | LOC: LAB 16:33 | PROVIDERS: ATTEND Internal Medicine | DX: E11.9 Type 2 diabetes mellitus without complications (principal); E78.00 Pure hypercholesterolemia, unspecified; J44.9 Chronic obstructive pulmonary disease, unspecified | CPT/HCPCS: 82270 ==

== ENCOUNTER → 2017-02-17 | Outpatient (CLI) | payer OTHER, MEDICAID ==
[~2017-02-17] VITALS: Ht 160 cm; Wt 81.2 kg
[~2017-02-17] MED LIST changes: +ALB5IS NEB; +HYDR-4683 PO; +IPRA0.03 NEB; +LEVO500T21 PO; +UMEC1AER IN
[2017-02-17 16:41] LABS: Urine Bilirubin Negative (Negative); Urine Blood Negative /uL (Negative); Urine Color Yellow (Yellow); Urine Glucose Normal (Normal); Urine Ketone Negative (Negative); Urine Nitrite Negative (Negative); Urine RBC <1 /hpf (0 - 3); Urine Sperm PRESENT /hpf (None Seen); Urine Squamous Epithelial Cell FEW /hpf (<5); Urine Urobilinogen Normal (Negative); Urine pH 5.5 (5.0-8.0)
[2017-02-17 16:46] LABS: Basophils # (auto) 0.2 uL; Basophils % (auto) 1.3 % (0.0-2.0); Eosinophils # (auto) 0.8 uL; Eosinophils % (auto) 5.8 % (0.0-7.0); Hemoglobin 16.4 g/dL (13.5-17.5); Lymphocytes # (auto) 1.9 uL; Lymphocytes % (auto) 14.7 % (10.0-50.0); Mean Corpuscular Hemoglobin 29.8 pg (28.0-32.0); Mean Corpuscular Hgb Conc. 33.3 g/dL (32.0-36.0); Mean Corpuscular Volume 89.3 fL (80.0-100.0); Mean Platelet Volume 8.2 fL (6.9-10.8); Neutrophils # (auto) 9.1 uL; Neutrophils % (auto) 70.2 % (37.0-80.0); Platelet Count (auto) 215 10^3/uL (140-450); Red Cell Distribution Width 15.8 % (11.8-14.3)
[2017-02-17 16:52] LABS: INR 0.99 (0.9-1.15); Partial Thromboplastin Time 26.4 sec (22.64-33.71); Prothrombin Time 10.8 sec (9.37-12.3)
[2017-02-17 16:58] LABS: Albumin 3.8 g/dL (3.4-5.0); BUN/Creatinine Ratio 11.1; Calcium 8.8 mg/dL (8.5-10.1); Potassium 3.9 mmol/L (3.5-5.1)
[2017-02-17 17:10] LABS: Bilirubin, Total 0.4 mg/dL (0.2-1.0); Total Protein 7.9 g/dL (6.4-8.2)
== END | disposition home or self-care (01) ==
LOC: LAB 08:00 → EDSTATUS 02-21 06:45
PROVIDERS: ATTEND Orthopaedic Surgery
DX: M16.11 Unilateral primary osteoarthritis, right hip (principal); J44.9 Chronic obstructive pulmonary disease, unspecified
CPT/HCPCS: 36415; 80053; 81001; 85025; 85610; 85730; 86850; 86900; 86901; A4565

== ENCOUNTER 2017-11-07 18:18 | Inpatient (IN) | payer MEDICAID, OTHER ==
[~2017-11-07] VITALS: Ht 162.6 cm; Wt 75.7 kg
[~2017-11-07 18:18] MED LIST changes: -ASPI81CH49 PO; -ATOR20TA50 PO; -BECL0.07 INH; +DOXY-216 PO; -LEVO500T21 PO; -MUPI2OIN10 TOP; +PRE5T PO; -UMEC1AER IN
[2017-11-07] MEDS ORDERED: methylPREDNISolone SOD SUCC 125 MG/2 ML VL IV ONE (18:30)
[2017-11-07] MEDS ORDERED: IPRATROPIUM BROM 0.5 MG/2.5ML INH SOL NEB ONE (18:30)
[2017-11-07] MEDS ORDERED: ALBUTEROL SULF 2.5 MG/0.5ML(0.5%) NEB SOLN NEB ONE (18:30)
[2017-11-07] MEDS ORDERED: PROMETHAZINE HCL 25 MG/ML 1ML ONE (18:45)
[2017-11-07] MEDS ORDERED: Proair (18:58)
[2017-11-07] MEDS ORDERED: FLUT1AER3 (18:58)
[2017-11-07 19:00] LABS: Hematocrit 52.7 % (41.0-53.0); Hemoglobin 17.3 g/dL (13.5-17.5); Mean Corpuscular Hemoglobin 29.2 pg (28.0-32.0); Mean Corpuscular Hgb Conc. 32.9 g/dL (32.0-36.0); Mean Corpuscular Volume 88.9 fL (80.0-100.0); Platelet Count (auto) 205 10^3/uL (140-450); Red Blood Cells 5.93 10^6/uL (4.5-5.90); Red Cell Distribution Width 16.2 % (11.8-14.3); White Blood Cell 15.3 10^3/uL (4.4-10.8)
[2017-11-07] MEDS ORDERED: PROMETHAZINE HCL 25 MG/ML 1ML IV ONE (19:00)
[2017-11-07 19:09] LABS: Band Neutrophils % (manual) 0; Basophils % (manual) 0 (0.0-2.0); Blast Cells 0; Metamyelocytes % 0; Myelocytes % 0; Promyelocytes % 0; Reactive Lymphocytes 0
[2017-11-07 19:22] LABS: Alanine Aminotransferase 28 U/L (16-61); Albumin 4.2 g/dL (3.4-5.0); Alkaline Phosphatase 70 U/L (45-117); Anion Gap 10 (5-15); Aspartate Aminotransferase 21 U/L (15-37); BUN/Creatinine Ratio 14.6; Bilirubin, Total 0.4 mg/dL (0.2-1.0); Blood Urea Nitrogen 19 mg/dL (7-18); Calcium 9.3 mg/dL (8.5-10.1); Carbon Dioxide 27 mmol/L (21-32); Chloride 108 mmol/L (98-107); GFR African American 71 mL/min; GFR Non-African American 58 mL/min; Glucose 134 mg/dL (74-106); Potassium 4.5 mmol/L (3.5-5.1); Sodium 145 mmol/L (136-145); Total Protein 8.2 g/dL (6.4-8.2)
[2017-11-07 19:38] LABS: Eosinophils % (manual) 17 (0-7); Lymphocytes % (manual) 22 (10.0-50.0); Monocytes % (manual) 6 (0-12)
[2017-11-07] MEDS ORDERED: LEVOFLOXACIN 500MG 100 ML IV ONE (21:15)
[2017-11-07] MEDS ORDERED: MORPHINE SULF INJ 2 MG/ML SYRINGE 1ML IV PRN (21:15)
[2017-11-07] MEDS ORDERED: NITROGLYCERIN 0.4 MG SL TAB SL PRN (21:15)
[2017-11-07] MEDS ORDERED: ACETAMINOPHEN 325 MG TAB PO PRN (21:30)
[2017-11-07] MEDS ORDERED: TEMAZEPAM 15 MG CAP PO PRN (21:30)
[2017-11-07] MEDS ORDERED: ONDANSETRON HCL 4 MG/2 ML VIAL IV PRN (21:30)
[2017-11-07] MEDS ORDERED: HYDROcodone-ACET 5/325MG TAB PO PRN (21:30)
[2017-11-07] MEDS: FAMOTIDINE 20 MG TAB PO SCH (21:51)
[2017-11-07] MEDS: METOPROLOL TARTRATE 25 MG TAB PO SCH (21:53)
[2017-11-07 23:39] VITALS: BP 120/77
[2017-11-08] MEDS: IPRATROPIUM BROM 0.5 MG/2.5ML INH SOL NEB PRN ×2 (00:27→19:01)
[2017-11-08] MEDS: ALBUTEROL SULF 2.5 MG/0.5ML(0.5%) NEB SOLN NEB PRN ×2 (00:27→19:01)
[2017-11-08 04:36] VITALS: BP 128/71
[2017-11-08 06:58] LABS: Basophils # (auto) 0 uL; Basophils % (auto) 0.2 % (0.0-2.0); Eosinophils # (auto) 0 uL; Eosinophils % (auto) 0.1 % (0.0-7.0); Hematocrit 47.6 % (41.0-53.0); Hemoglobin 15.9 g/dL (13.5-17.5); Lymphocytes # (auto) 0.6 uL; Lymphocytes % (auto) 6.7 % (10.0-50.0); Mean Corpuscular Hemoglobin 29.6 pg (28.0-32.0); Mean Corpuscular Hgb Conc. 33.3 g/dL (32.0-36.0); Mean Corpuscular Volume 88.7 fL (80.0-100.0); Monocytes # (auto) 0.1 uL; Monocytes % (auto) 1.2 % (0.0-12.0); Neutrophils # (auto) 7.7 uL; Neutrophils % (auto) 91.8 % (37.0-80.0); Nucleated Red Blood Cells % 0.1 %; Platelet Count (auto) 163 10^3/uL (140-450); Red Blood Cells 5.37 10^6/uL (4.5-5.90); Red Cell Distribution Width 16.3 % (11.8-14.3); White Blood Cell 8.4 10^3/uL (4.4-10.8)
[2017-11-08 07:16] LABS: Albumin 3.6 g/dL (3.4-5.0); Bilirubin, Total 0.3 mg/dL (0.2-1.0); Potassium 4.7 mmol/L (3.5-5.1); Total Protein 7.2 g/dL (6.4-8.2)
[2017-11-08 08:33] VITALS: BP 124/70
[2017-11-08] MEDS: predniSONE 20 MG TAB PO SCH (09:09)
[2017-11-08] MEDS: LEVOFLOXACIN 500MG 100 ML IV SCH (09:09)
[2017-11-08] MEDS: FAMOTIDINE 20 MG TAB PO SCH ×2 (09:09→21:55)
[2017-11-08] MEDS: METOPROLOL TARTRATE 25 MG TAB PO SCH ×2 (09:09→21:55)
[2017-11-08] MEDS: ENOXAPARIN SOD 40 MG/0.4 ML SYRINGE SC SCH (09:10)
[2017-11-08 12:39] VITALS: BP 117/58
[2017-11-08] MEDS ORDERED: PROMETHAZINE HCL 25 MG/ML 1ML IV PRN (13:45)
[2017-11-08] MEDS ORDERED: AZITHROMYCIN 250 MG TAB PO ONE (13:45)
[2017-11-08 15:50] VITALS: BP 128/71
[2017-11-08 17:04] VITALS: BP 117/58
[2017-11-08 21:40] VITALS: BP 114/68
[2017-11-09 04:49] VITALS: BP 106/54
[2017-11-09 06:01] LABS: Basophils # (auto) 0 uL; Basophils % (auto) 0.3 % (0.0-2.0); Eosinophils # (auto) 0.1 uL; Eosinophils % (auto) 0.6 % (0.0-7.0); Hematocrit 45.6 % (41.0-53.0); Hemoglobin 15.2 g/dL (13.5-17.5); Lymphocytes # (auto) 1.8 uL; Lymphocytes % (auto) 11.1 % (10.0-50.0); Mean Corpuscular Hemoglobin 29.2 pg (28.0-32.0); Mean Corpuscular Hgb Conc. 33.3 g/dL (32.0-36.0); Mean Corpuscular Volume 87.8 fL (80.0-100.0); Monocytes # (auto) 1.3 uL; Neutrophils # (auto) 12.6 uL; Nucleated Red Blood Cells % 0.1 %; Platelet Count (auto) 169 10^3/uL (140-450); Red Blood Cells 5.19 10^6/uL (4.5-5.90); Red Cell Distribution Width 16.2 % (11.8-14.3); White Blood Cell 15.8 10^3/uL (4.4-10.8)
[2017-11-09 06:12] LABS: BUN/Creatinine Ratio 24.7; Calcium 8.7 mg/dL (8.5-10.1); Potassium 4.3 mmol/L (3.5-5.1)
[2017-11-09 08:00] VITALS: BP 120/72
[2017-11-09 08:05] VITALS: BP 120/72
[2017-11-09] MEDS: predniSONE 20 MG TAB PO SCH (09:53)
[2017-11-09] MEDS: LEVOFLOXACIN 500MG 100 ML IV SCH (09:53)
[2017-11-09] MEDS: METOPROLOL TARTRATE 25 MG TAB PO SCH ×2 (09:53→21:50)
[2017-11-09] MEDS: FAMOTIDINE 20 MG TAB PO SCH ×2 (09:54→21:50)
[2017-11-09] MEDS: ENOXAPARIN SOD 40 MG/0.4 ML SYRINGE SC SCH (09:54)
[2017-11-09] MEDS: AZITHROMYCIN 250 MG TAB PO SCH (09:54)
[2017-11-09 12:27] VITALS: BP 118/67
[2017-11-09 17:46] VITALS: BP 132/74
[2017-11-09] MEDS: ALBUTEROL SULF 2.5 MG/0.5ML(0.5%) NEB SOLN NEB SCH (20:24)
[2017-11-09] MEDS: IPRATROPIUM BROM 0.5 MG/2.5ML INH SOL NEB SCH (20:24)
[2017-11-09 22:00] VITALS: BP 112/70
[2017-11-10 05:00] VITALS: BP 116/74
[2017-11-10] MEDS: IPRATROPIUM BROM 0.5 MG/2.5ML INH SOL NEB SCH ×2 (06:23→10:51)
[2017-11-10] MEDS: ALBUTEROL SULF 2.5 MG/0.5ML(0.5%) NEB SOLN NEB SCH ×2 (06:24→10:50)
[2017-11-10 08:00] VITALS: BP 119/70
[2017-11-10 08:31] VITALS: BP 119/70
[2017-11-10] MEDS: predniSONE 20 MG TAB PO SCH (10:45)
[2017-11-10] MEDS: AZITHROMYCIN 250 MG TAB PO SCH (10:46)
[2017-11-10] MEDS: METOPROLOL TARTRATE 25 MG TAB PO SCH (10:46)
[2017-11-10] MEDS: FAMOTIDINE 20 MG TAB PO SCH (10:46)
[2017-11-10 13:50] VITALS: BP 121/76
== END 2017-11-10 14:39 | disposition home or self-care (01) | DRG 871 ==
LOC: ER 18:18 → WEST WING 18:19 → TELE-WESTW 11-08 13:39 → WEST WING 11-10 08:12
PROVIDERS: ADMIT Nurse Practitioner; ATTEND Internal Medicine
DX: A41.9 Sepsis, unspecified organism (principal); J18.9 Pneumonia, unspecified organism; J96.20 Acute and chronic respiratory failure, unspecified whether with hypoxia or hypercapnia; J44.0 Chronic obstructive pulmonary disease with (acute) lower respiratory infection; J44.1 Chronic obstructive pulmonary disease with (acute) exacerbation; I10 Essential (primary) hypertension; E78.5 Hyperlipidemia, unspecified; E11.9 Type 2 diabetes mellitus without complications; E66.9 Obesity, unspecified; J20.9 Acute bronchitis, unspecified; Z83.3 Family history of diabetes mellitus; Z88.0 Allergy status to penicillin; Z68.28 Body mass index [BMI] 28.0-28.9, adult
CPT/HCPCS: 36415; 71045; 80048; 80053; 83036; 83605; 84484; 85007; 85025; 85027; 87040; 87081; 93005; 94640; 96365; 96375; J1956

== ENCOUNTER → 2017-12-08 | Outpatient (CLI) | payer OTHER ==
[~2017-12-08] MED LIST changes: +FLUT1AER3; -HYDR-4683 PO; +Proair
[2017-12-08 09:42] LABS: Cholesterol 210 mg/dL (< 200); HDL Cholesterol 44 mg/dL (40-59); LDL Cholesterol 153 mg/dL (< 100); Triglycerides 192 mg/dL (< 150)
== END | disposition home or self-care (01) ==
LOC: LAB 08:17
PROVIDERS: ATTEND Internal Medicine
DX: N40.0 Benign prostatic hyperplasia without lower urinary tract symptoms (principal); E78.00 Pure hypercholesterolemia, unspecified; J44.9 Chronic obstructive pulmonary disease, unspecified; Z99.81 Dependence on supplemental oxygen
CPT/HCPCS: 36415; 80061; 84153

== ENCOUNTER 2018-01-01 11:37 | Inpatient (IN) | payer OTHER ==
[~2018-01-01] VITALS: Ht 162.6 cm; Wt 80.6 kg
[2018-01-01] MEDS ORDERED: IPRATROPIUM BROM 0.5 MG/2.5ML INH SOL HHN ONE (12:30)
[2018-01-01] MEDS ORDERED: ALBUTEROL SULF 2.5 MG/0.5ML(0.5%) NEB SOLN HHN ONE (12:30)
[2018-01-01] MEDS ORDERED: methylPREDNISolone SOD SUCC 125 MG/2 ML VL IV ONE (12:30)
[2018-01-01 12:33] LABS: Hematocrit 46.4 % (41.0-53.0); Hemoglobin 15.7 g/dL (13.5-17.5); Mean Corpuscular Hemoglobin 29.7 pg (28.0-32.0); Mean Corpuscular Hgb Conc. 33.7 g/dL (32.0-36.0); Mean Corpuscular Volume 87.9 fL (80.0-100.0); Platelet Count (auto) 180 10^3/uL (140-450); Red Blood Cells 5.28 10^6/uL (4.5-5.90); Red Cell Distribution Width 15.6 % (11.8-14.3); White Blood Cell 11.2 10^3/uL (4.4-10.8)
[2018-01-01 12:38] LABS: Basophils % (manual) 0 (0.0-2.0); Blast Cells 0; Metamyelocytes % 0; Myelocytes % 0; Promyelocytes % 0; Reactive Lymphocytes 0
[2018-01-01 12:42] LABS: Albumin 3.8 g/dL (3.4-5.0)
[2018-01-01 12:45] LABS: Bilirubin, Total 0.4 mg/dL (0.2-1.0)
[2018-01-01 13:12] LABS: Band Neutrophils % (manual) 2; Eosinophils % (manual) 17 (0-7); Lymphocytes % (manual) 15 (10.0-50.0); Monocytes % (manual) 5 (0-12)
[2018-01-01] MEDS ORDERED: DEXTROSE (50%) 50ML SYRG IV PRN (14:00)
[2018-01-01] MEDS: IPRATROPIUM BROM 0.5 MG/2.5ML INH SOL NEB SCH ×2 (14:00→22:51)
[2018-01-01] MEDS: ALBUTEROL SULF 2.5 MG/0.5ML(0.5%) NEB SOLN NEB SCH ×2 (14:00→22:51)
[2018-01-01] MEDS ORDERED: ONDANSETRON HCL 4 MG/2 ML VIAL IV PRN (14:15)
[2018-01-01] MEDS ORDERED: DOCUSATE SOD 100 MG CAP PO PRN (14:15)
[2018-01-01] MEDS ORDERED: AZITHROMYCIN 500MG/ 250ML 250 ML IV ONE (14:15)
[2018-01-01] MEDS ORDERED: LEVOFLOXACIN 500MG 100 ML IV ONE (14:15)
[2018-01-01] MEDS ORDERED: ACETAMINOPHEN 325 MG TAB PO PRN (14:15)
[2018-01-01] MEDS ORDERED: MORPHINE SULFATE 4 MG/ML SYR/VIAL IV PRN ×2 (14:15)
[2018-01-01] MEDS ORDERED: TEMAZEPAM 15 MG CAP PO PRN (14:15)
[2018-01-01] MEDS ORDERED: NITROGLYCERIN 0.4 MG SL TAB SL PRN (14:15)
[2018-01-01 15:29] LABS: Lactic Acid w/Reflex 2.1 mmol/L (0.4-2.0)
[2018-01-01] MEDS ORDERED: INFLUENZA QUAD 2018-2019 0.5 ML SYRG IM ONE (16:30)
[2018-01-01] MEDS ORDERED: PNEUMOCOCCAL VACC POLYS 25 MCG/0.5 ML VIAL IM ONE (16:30)
[2018-01-01 17:00] VITALS: BP 149/77
[2018-01-01] MEDS: ACCU-CHEK COMFORT CURVE STRIP VI SCH ×2 (17:00→21:11)
[2018-01-01] MEDS: InsuLIN REG 1unit/0.01ml Soln (100units/ml) SC SCH ×2 (17:00→21:11)
[2018-01-01] MEDS: methylPREDNISolone SOD SUCC 40 MG/ML VL IV SCH ×2 (18:28→23:40)
[2018-01-01 19:12] LABS: Lactic Acid w/Reflex 3.9 mmol/L (0.4-2.0)
[2018-01-01] MEDS: SODIUM CHLOR 0.9% PF (SALINE LOCK) 10ML VIAL/SYR IV SCH (21:11)
[2018-01-01] MEDS: ATORVASTATIN 20 MG TAB PO SCH (21:11)
[2018-01-01 21:34] VITALS: BP 137/79
[2018-01-01 22:37] LABS: Urine Bacteria NONE SEEN /hpf (None Seen); Urine Blood Negative /uL (Negative); Urine Specific Gravity 1.007 (1.001-1.035); Urine WBC <1 /hpf (0 - 3)
[2018-01-01] MEDS: BUDESONIDE (INHALATION) 0.5 MG/2 ML NEB NEB SCH (22:51)
[2018-01-02 01:17] VITALS: BP 137/79
[2018-01-02] MEDS: ALBUTEROL SULF 2.5 MG/0.5ML(0.5%) NEB SOLN NEB SCH ×5 (02:00→19:15)
[2018-01-02] MEDS: IPRATROPIUM BROM 0.5 MG/2.5ML INH SOL NEB SCH ×6 (02:00→22:58)
[2018-01-02 05:00] VITALS: BP 141/81
[2018-01-02] MEDS: methylPREDNISolone SOD SUCC 40 MG/ML VL IV SCH ×4 (05:44→23:33)
[2018-01-02] MEDS: SODIUM CHLOR 0.9% PF (SALINE LOCK) 10ML VIAL/SYR IV SCH ×3 (05:44→21:01)
[2018-01-02] MEDS: InsuLIN REG 1unit/0.01ml Soln (100units/ml) SC SCH ×4 (06:01→21:13)
[2018-01-02] MEDS: ACCU-CHEK COMFORT CURVE STRIP VI SCH ×4 (06:01→21:13)
[2018-01-02 06:18] LABS: Hematocrit 45.7 % (41.0-53.0); Hemoglobin 14.9 g/dL (13.5-17.5); Mean Corpuscular Hemoglobin 28.9 pg (28.0-32.0); Mean Corpuscular Hgb Conc. 32.6 g/dL (32.0-36.0); Mean Corpuscular Volume 88.8 fL (80.0-100.0); Platelet Count (auto) 173 10^3/uL (140-450); Red Blood Cells 5.15 10^6/uL (4.5-5.90); Red Cell Distribution Width 15.6 % (11.8-14.3); White Blood Cell 12.6 10^3/uL (4.4-10.8)
[2018-01-02 06:24] LABS: Band Neutrophils % (manual) 0; Basophils % (manual) 0 (0.0-2.0); Blast Cells 0; Eosinophils % (manual) 0 (0-7); Metamyelocytes % 0; Monocytes % (manual) 0 (0-12); Myelocytes % 0; Promyelocytes % 0; Reactive Lymphocytes 0
[2018-01-02 06:39] LABS: Albumin 3.4 g/dL (3.4-5.0); Calcium 8.7 mg/dL (8.5-10.1); Potassium 4.4 mmol/L (3.5-5.1)
[2018-01-02 06:42] LABS: Bilirubin, Total 0.4 mg/dL (0.2-1.0); Total Protein 6.8 g/dL (6.4-8.2)
[2018-01-02 07:46] LABS: Lymphocytes % (manual) 8 (10.0-50.0)
[2018-01-02 09:00] VITALS: BP 113/64
[2018-01-02] MEDS: BUDESONIDE (INHALATION) 0.5 MG/2 ML NEB NEB SCH ×2 (09:39→22:59)
[2018-01-02] MEDS ORDERED: AZITHROMYCIN 500MG/ 250ML 250 ML IV SCH (10:00)
[2018-01-02] MEDS ORDERED: LEVOFLOXACIN 500MG 100 ML IV SCH (10:00)
[2018-01-02] MEDS: MULTIPLE VITAMIN TAB PO SCH (10:22)
[2018-01-02 13:00] VITALS: BP 122/71
[2018-01-02] MEDS: HYDROcodone-ACET 5/325MG TAB PO PRN (15:40)
[2018-01-02 17:20] VITALS: BP 123/82
[2018-01-02] MEDS: ATORVASTATIN 20 MG TAB PO SCH (21:05)
[2018-01-02 22:00] VITALS: BP 128/72
[2018-01-03] MEDS: IPRATROPIUM BROM 0.5 MG/2.5ML INH SOL NEB SCH ×6 (02:32→22:02)
[2018-01-03 05:00] VITALS: BP 126/76
[2018-01-03] MEDS: SODIUM CHLOR 0.9% PF (SALINE LOCK) 10ML VIAL/SYR IV SCH ×3 (06:07→21:09)
[2018-01-03] MEDS: InsuLIN REG 1unit/0.01ml Soln (100units/ml) SC SCH ×4 (06:08→21:10)
[2018-01-03] MEDS: ACCU-CHEK COMFORT CURVE STRIP VI SCH ×4 (06:08→21:10)
[2018-01-03] MEDS: methylPREDNISolone SOD SUCC 40 MG/ML VL IV SCH ×4 (06:08→23:31)
[2018-01-03] MEDS: ALBUTEROL SULF 2.5 MG/0.5ML(0.5%) NEB SOLN NEB SCH ×4 (06:34→18:34)
[2018-01-03 09:00] VITALS: BP 116/70
[2018-01-03] MEDS: MULTIPLE VITAMIN TAB PO SCH (09:59)
[2018-01-03] MEDS: HYDROcodone-ACET 5/325MG TAB PO PRN (10:00)
[2018-01-03] MEDS: BUDESONIDE (INHALATION) 0.5 MG/2 ML NEB NEB SCH ×2 (10:27→18:34)
[2018-01-03 13:00] VITALS: BP 133/71
[2018-01-03 16:52] VITALS: BP 142/75
[2018-01-03] MEDS: ATORVASTATIN 20 MG TAB PO SCH (21:09)
[2018-01-03 22:00] VITALS: BP 136/74
[2018-01-04] MEDS: IPRATROPIUM BROM 0.5 MG/2.5ML INH SOL NEB SCH ×4 (02:00→13:44)
[2018-01-04 05:00] VITALS: BP 149/74
[2018-01-04] MEDS: SODIUM CHLOR 0.9% PF (SALINE LOCK) 10ML VIAL/SYR IV SCH ×2 (05:33→12:23)
[2018-01-04] MEDS: methylPREDNISolone SOD SUCC 40 MG/ML VL IV SCH ×2 (05:33→12:00)
[2018-01-04] MEDS: ACCU-CHEK COMFORT CURVE STRIP VI SCH ×2 (06:03→12:22)
[2018-01-04] MEDS: InsuLIN REG 1unit/0.01ml Soln (100units/ml) SC SCH ×2 (06:03→11:30)
[2018-01-04] MEDS: BUDESONIDE (INHALATION) 0.5 MG/2 ML NEB NEB SCH (06:30)
[2018-01-04] MEDS: ALBUTEROL SULF 2.5 MG/0.5ML(0.5%) NEB SOLN NEB SCH ×3 (06:30→13:44)
[2018-01-04 08:00] VITALS: BP 142/95
[2018-01-04 09:00] VITALS: BP 142/95
[2018-01-04] MEDS: MULTIPLE VITAMIN TAB PO SCH (09:08)
[2018-01-04 13:00] VITALS: BP 151/79
== END 2018-01-04 16:10 | disposition home or self-care (01) | DRG 871 ==
LOC: ER 11:37 → TELE 11:38 → TELE-WESTW 15:20
PROVIDERS: ADMIT Internal Medicine; ATTEND Internal Medicine Pulmonary Disease
DX: A41.9 Sepsis, unspecified organism (principal); J96.21 Acute and chronic respiratory failure with hypoxia; J18.9 Pneumonia, unspecified organism; J44.0 Chronic obstructive pulmonary disease with (acute) lower respiratory infection; J45.901 Unspecified asthma with (acute) exacerbation; J44.1 Chronic obstructive pulmonary disease with (acute) exacerbation; E11.22 Type 2 diabetes mellitus with diabetic chronic kidney disease; E66.9 Obesity, unspecified; E78.5 Hyperlipidemia, unspecified; E83.51 Hypocalcemia; I12.9 Hypertensive chronic kidney disease with stage 1 through stage 4 chronic kidney disease, or unspecified chronic kidney disease; J20.9 Acute bronchitis, unspecified; N18.2 Chronic kidney disease, stage 2 (mild); E11.21 Type 2 diabetes mellitus with diabetic nephropathy; Z83.3 Family history of diabetes mellitus; Z88.0 Allergy status to penicillin; Z99.81 Dependence on supplemental oxygen; Z23 Encounter for immunization
CPT/HCPCS: 36415; 71046; 80053; 81001; 82962; 83036; 83605; 83735; 83880; 84443; 84484; 85007; 85027; 87040; 90674; 93005; 94640; 94644; 96365; 96367; 96375; J1815; J1956

== ENCOUNTER → 2018-01-24 | Outpatient (CLI) | payer OTHER ==
[~2018-01-24] MED LIST changes: -DOXY-216 PO; -IPRA0.03 NEB; -MET25T PO; -PRE5T PO
== END | disposition home or self-care (01) ==
LOC: LAB 12:09
PROVIDERS: ATTEND Internal Medicine
DX: Z12.11 Encounter for screening for malignant neoplasm of colon (principal)
CPT/HCPCS: 82270

== ENCOUNTER → 2018-06-05 | Outpatient (CLI) | payer OTHER ==
[2018-06-05 08:56] LABS: Cholesterol 197 mg/dL (< 200); Triglycerides 224 mg/dL (< 150)
[2018-06-05 08:58] LABS: HDL Cholesterol 51 mg/dL (40-59); LDL Cholesterol 115 mg/dL (< 100)
== END | disposition home or self-care (01) ==
LOC: LAB 08:04
PROVIDERS: ATTEND Internal Medicine
DX: E11.9 Type 2 diabetes mellitus without complications (principal); R63.5 Abnormal weight gain
CPT/HCPCS: 36415; 80061; 83036; 84439; 84443

== ENCOUNTER → 2018-08-23 | Outpatient (CLI) | payer OTHER, MEDICAID ==
[~2018-08-23] MED LIST changes: -ALBUAER3 IN; -ASPI81CH43 PO; +FLUT1INH6 IN; +LOVA20TA4 PO; +METF-370 PO
== END | disposition home or self-care (01) ==
LOC: RT 14:23
PROVIDERS: ATTEND Internal Medicine Pulmonary Disease
DX: J44.9 Chronic obstructive pulmonary disease, unspecified (principal)
CPT/HCPCS: 36600; 82805

== ENCOUNTER → 2018-10-10 | Outpatient (CLI) | payer OTHER, MEDICAID ==
[2018-10-10 08:53] LABS: Cholesterol 166 mg/dL (< 200); HDL Cholesterol 40 mg/dL (40-59); LDL Cholesterol 114 mg/dL (< 100); Triglycerides 205 mg/dL (< 150)
== END | disposition home or self-care (01) ==
LOC: LAB 07:58
PROVIDERS: ATTEND Internal Medicine
DX: E11.9 Type 2 diabetes mellitus without complications (principal); E78.00 Pure hypercholesterolemia, unspecified
CPT/HCPCS: 36415; 80061; 83036

== ENCOUNTER → 2019-01-09 | Outpatient (CLI) | payer OTHER, MEDICAID ==
[2019-01-09 08:35] LABS: Urine WBC None Seen /hpf (0 - 3)
[2019-01-09 08:41] LABS: Basophils # (auto) 0.1 uL; Basophils % (auto) 1.3 % (0.0-2.0); Eosinophils # (auto) 1.6 uL; Eosinophils % (auto) 13.7 % (0.0-7.0); Hemoglobin 16.3 g/dL (13.5-17.5); Lymphocytes % (auto) 17.8 % (10.0-50.0); Mean Corpuscular Hemoglobin 28.1 pg (28.0-32.0); Mean Corpuscular Hgb Conc. 32.5 g/dL (32.0-36.0); Mean Corpuscular Volume 86.6 fL (80.0-100.0); Monocytes % (auto) 8.8 % (0.0-12.0); Neutrophils # (auto) 6.7 uL; Neutrophils % (auto) 58.4 % (37.0-80.0); Platelet Count (auto) 204 10^3/uL (140-450); Red Blood Cells 5.78 10^6/uL (4.5-5.90); Red Cell Distribution Width 16.3 % (11.8-14.3); White Blood Cell 11.4 10^3/uL (4.4-10.8)
[2019-01-09 08:50] LABS: Urine Bacteria NONE SEEN /hpf (None Seen); Urine Blood Negative /uL (Negative); Urine Mucus FEW (None Seen); Urine Specific Gravity 1.022 (1.001-1.035)
[2019-01-09 09:08] LABS: BUN/Creatinine Ratio 16.5; Potassium 3.8 mmol/L (3.5-5.1)
[2019-01-09 09:09] LABS: Albumin 3.6 g/dL (3.4-5.0); Calcium 8.6 mg/dL (8.5-10.1)
[2019-01-09 09:13] LABS: Bilirubin, Total 0.3 mg/dL (0.2-1.0); Total Protein 6.9 g/dL (6.4-8.2)
[2019-01-09 09:23] LABS: Free T4 (Free Thyroxine) 0.85 ng/dL (0.89-1.76)
[2019-01-09 09:24] LABS: Prostate Specific Antigen 0.96 ng/mL (0.0-4.0)
== END | disposition home or self-care (01) ==
LOC: LAB 08:22
PROVIDERS: ATTEND Internal Medicine
DX: N40.0 Benign prostatic hyperplasia without lower urinary tract symptoms (principal); E11.9 Type 2 diabetes mellitus without complications
CPT/HCPCS: 36415; 80053; 80061; 81001; 82043; 82270; 82607; 83036; 84153; 84439; 84443; 85025; 85652

== ENCOUNTER → 2019-02-01 | Outpatient (CLI) | payer OTHER, MEDICAID ==
[~2019-02-01] VITALS: Ht 160 cm; Wt 81.6 kg
[~2019-02-01] MED LIST changes: +ASPI-404 PO; +IPRA0.00 IN; +LORA-622 PO; +MONT10TA34 PO
[2019-02-01 16:20] LABS: Basophils # (auto) 0.1 uL; Basophils % (auto) 1.1 % (0.0-2.0); Eosinophils # (auto) 1.3 uL; Eosinophils % (auto) 11.3 % (0.0-7.0); Hematocrit 51.6 % (41.0-53.0); Hemoglobin 16.8 g/dL (13.5-17.5); Lymphocytes # (auto) 2.1 uL; Lymphocytes % (auto) 18.4 % (10.0-50.0); Mean Corpuscular Hemoglobin 28.2 pg (28.0-32.0); Mean Corpuscular Hgb Conc. 32.6 g/dL (32.0-36.0); Mean Corpuscular Volume 86.6 fL (80.0-100.0); Monocytes % (auto) 8.4 % (0.0-12.0); Neutrophils % (auto) 60.8 % (37.0-80.0); Nucleated Red Blood Cells % 0.1 %; Platelet Count (auto) 193 10^3/uL (140-450); Red Blood Cells 5.96 10^6/uL (4.5-5.90); Red Cell Distribution Width 16.3 % (11.8-14.3); White Blood Cell 11.5 10^3/uL (4.4-10.8)
[2019-02-01 16:27] LABS: Urine Blood Negative /uL (Negative); Urine Specific Gravity 1.023 (1.001-1.035)
[2019-02-01 16:58] LABS: INR 1.01 (0.9-1.15); Partial Thromboplastin Time 24.6 sec (23.64-32.05)
[2019-02-01 17:18] LABS: Albumin 3.9 g/dL (3.4-5.0); Calcium 9.1 mg/dL (8.5-10.1)
[2019-02-01 17:37] LABS: Bilirubin, Total 0.4 mg/dL (0.2-1.0); Total Protein 7.5 g/dL (6.4-8.2)
== END | disposition home or self-care (01) ==
LOC: SUR 15:55 → EDSTATUS 02-05 09:00
PROVIDERS: ATTEND Orthopaedic Surgery
DX: M16.11 Unilateral primary osteoarthritis, right hip (principal); I25.10 Atherosclerotic heart disease of native coronary artery without angina pectoris
CPT/HCPCS: 36415; 80053; 81003; 85025; 85610; 85730; 86850; 86900; 86901

== ENCOUNTER 2019-02-03 19:39 | Inpatient (IN) | payer OTHER, MEDICAID ==
[~2019-02-03] VITALS: Ht 160 cm; Wt 77.3 kg
[~2019-02-03 19:39] MED LIST changes: -ALB5IS NEB; -FLUT1INH6 IN; -IPRA0.00 IN; +IPRA1SOL3 IN
[2019-02-03] MEDS ORDERED: ALBUTEROL SULF 2.5 MG/0.5ML(0.5%) NEB SOLN ONE (19:47)
[2019-02-03] MEDS ORDERED: IPRATROPIUM BROM 0.5 MG/2.5ML INH SOL ONE (19:47)
[2019-02-03] MEDS ORDERED: methylPREDNISolone SOD SUCC 125 MG/2 ML VL IV ONE ×2 (20:00→21:30)
[2019-02-03] MEDS ORDERED: IPRATROPIUM BROM 0.5 MG/2.5ML INH SOL HHN ONE (20:00)
[2019-02-03] MEDS ORDERED: ALBUTEROL SULF 2.5 MG/0.5ML(0.5%) NEB SOLN HHN ONE (20:00)
[2019-02-03 21:09] LABS: Basophils # (auto) 0.2 uL; Basophils % (auto) 0.8 % (0.0-2.0); Eosinophils # (auto) 1.3 uL; Eosinophils % (auto) 6.1 % (0.0-7.0); Hematocrit 51.7 % (41.0-53.0); Hemoglobin 16.8 g/dL (13.5-17.5); Lymphocytes # (auto) 1.9 uL; Lymphocytes % (auto) 9.2 % (10.0-50.0); Mean Corpuscular Hemoglobin 28.7 pg (28.0-32.0); Mean Corpuscular Hgb Conc. 32.4 g/dL (32.0-36.0); Mean Corpuscular Volume 88.4 fL (80.0-100.0); Monocytes # (auto) 1.1 uL; Monocytes % (auto) 5.6 % (0.0-12.0); Neutrophils # (auto) 16.1 uL; Neutrophils % (auto) 78.3 % (37.0-80.0); Platelet Count (auto) 146 10^3/uL (140-450); Red Blood Cells 5.85 10^6/uL (4.5-5.90); Red Cell Distribution Width 17.1 % (11.8-14.3); White Blood Cell 20.6 10^3/uL (4.4-10.8)
[2019-02-03] MEDS: cloNIDine HCL 0.1 MG TAB PO SCH ×2 (21:30→22:00)
[2019-02-03] MEDS ORDERED: ISOSORBIDE MONONITRATE ER 60 MG TAB PO SCH (21:30)
[2019-02-03] MEDS ORDERED: cefTRIAXone SOD 1,000 MG VL IM SCH (21:30)
[2019-02-03] MEDS ORDERED: METOPROLOL SUCCINATE XL 50 MG TAB PO SCH (21:30)
[2019-02-03] MEDS ORDERED: ONDANSETRON HCL 4 MG/2 ML VIAL IV PRN (21:30)
[2019-02-03] MEDS ORDERED: HYDROcodone-ACET 5/325MG TAB PO PRN (21:30)
[2019-02-03] MEDS ORDERED: DOCUSATE SOD 100 MG CAP PO PRN (21:30)
[2019-02-03] MEDS ORDERED: MORPHINE SULFATE 4 MG/ML SYR/VIAL IV PRN (21:30)
[2019-02-03 21:31] LABS: Albumin 3.9 g/dL (3.4-5.0); Potassium 4.6 mmol/L (3.5-5.1)
[2019-02-03 21:36] LABS: Bilirubin, Total 0.3 mg/dL (0.2-1.0); Total Protein 7.7 g/dL (6.4-8.2)
[2019-02-03] MEDS ORDERED: FUROSEMIDE 20 MG/2 ML VIAL IV ONE (21:45)
[2019-02-03 21:53] VITALS: BP 124/82
[2019-02-03] MEDS: LORazepam 0.5 MG TAB PO PRN (21:57)
[2019-02-03] MEDS: AZITHROMYCIN 500MG/ 250ML 250 ML IV SCH (21:58)
[2019-02-03] MEDS: ALBUTEROL SULF 2.5 MG/0.5ML(0.5%) NEB SOLN NEB SCH ×2 (22:00→22:02)
[2019-02-03] MEDS: IPRATROPIUM BROM 0.5 MG/2.5ML INH SOL NEB SCH (22:03)
[2019-02-03 23:03] VITALS: BP 124/82
[2019-02-04] VITALS (9 sets, daily range): BP systolic 75–138; BP diastolic 49–85
[2019-02-04] MEDS: IPRATROPIUM BROM 0.5 MG/2.5ML INH SOL NEB SCH ×6 (01:56→22:08)
[2019-02-04] MEDS: ALBUTEROL SULF 2.5 MG/0.5ML(0.5%) NEB SOLN NEB SCH ×3 (01:56→09:43)
[2019-02-04 06:22] LABS: Basophils # (auto) 0 uL; Basophils % (auto) 0.3 % (0.0-2.0); Eosinophils # (auto) 0 uL; Eosinophils % (auto) 0.1 % (0.0-7.0); Hematocrit 48.8 % (41.0-53.0); Hemoglobin 16.5 g/dL (13.5-17.5); Lymphocytes # (auto) 0.6 uL; Lymphocytes % (auto) 5.9 % (10.0-50.0); Mean Corpuscular Hemoglobin 29.3 pg (28.0-32.0); Mean Corpuscular Hgb Conc. 33.9 g/dL (32.0-36.0); Mean Corpuscular Volume 86.6 fL (80.0-100.0); Monocytes # (auto) 0.1 uL; Monocytes % (auto) 0.9 % (0.0-12.0); Neutrophils # (auto) 9.2 uL; Neutrophils % (auto) 92.8 % (37.0-80.0); Nucleated Red Blood Cells % 0.1 %; Platelet Count (auto) 170 10^3/uL (140-450); Red Blood Cells 5.64 10^6/uL (4.5-5.90); Red Cell Distribution Width 16.5 % (11.8-14.3); White Blood Cell 9.9 10^3/uL (4.4-10.8)
[2019-02-04 06:30] LABS: Calcium 8.4 mg/dL (8.5-10.1); Potassium 4.4 mmol/L (3.5-5.1)
--- NOTE | 2019-02-04 07:35 | NUR ---
PT REQUESTING TO BE TAKEN OFF BIPAP. PT WAS PLACED ON 3L/MIN VIA NC. 93% O2 SATS, HR 89 BPM, RR20 BPM, BS ARE SLIGHT INSPIRATORY COARSE TO AUSCULTATION, RESPIRATION IS REGULAR AND NON LABORED. SKIN IS DRY AND WARM TO THE TOUCH. NO SOB OR ANY OTHER ACUTE RESPIRATORY DISTRESS NOTED. WILL CONTINUE TO MONITOR PT.
[2019-02-04] MEDS: cefTRIAXone 1GM/50ML D5W 50 ML IV SCH (08:44)
--- NOTE | 2019-02-04 09:43 | NUR ---
PT PLACED BACK ON BIPAP ON SAME SETTINGS. PT WAS TACHYPNEIC WITH INCREASING WOB. IMMEDIATE IMPROVEMENT NOTED UPON PLACING PT ON BIPAP. PT IS ON HIGH FOWLERS. MASK READJUSTED FOR ADEQUATE MASK SEAL. PT TOLERATING WELL. WILL CONTINUE TO MONITOR PT..
[2019-02-04] MEDS ORDERED: cloNIDine HCL 0.1 MG TAB PO PRN (10:00)
[2019-02-04] MEDS: Ezetimibe (Zetia) 10 MG TAB PO SCH (10:00)
[2019-02-04] MEDS: LORazepam 0.5 MG TAB PO PRN ×2 (10:07→18:52)
[2019-02-04] MEDS: AZITHROMYCIN 500MG/ 250ML 250 ML IV SCH (10:13)
[2019-02-04] MEDS: LISINOPRIL 10 MG TAB PO SCH (10:28)
[2019-02-04 11:07] LABS: Cholesterol 189 mg/dL (< 200)
[2019-02-04 11:10] LABS: HDL Cholesterol 52 mg/dL (40-59); LDL Cholesterol 127 mg/dL (< 100); Triglycerides 99 mg/dL (< 150)
[2019-02-04] MEDS ORDERED: DEXTROSE (50%) 50ML SYRG IV PRN (11:15)
[2019-02-04] MEDS ORDERED: IOHEXOL 350 MG/ML 100ML IJ ONE (11:26)
[2019-02-04] MEDS: ACCU-CHEK COMFORT CURVE STRIP VI SCH ×3 (12:15→22:26)
[2019-02-04] MEDS: InsuLIN REG 1unit/0.01ml Soln (100units/ml) SC SCH ×3 (12:44→22:26)
[2019-02-04 13:21] LABS: Urine Bacteria NONE SEEN /hpf (None Seen); Urine Blood Negative /uL (Negative); Urine Hyaline Cast FEW /lpf (0 - 2); Urine Mucus FEW (None Seen); Urine Specific Gravity 1.019 (1.001-1.035); Urine WBC 1 /hpf (0 - 3)
[2019-02-04] MEDS ORDERED: MORPHINE SULF INJ 2 MG/ML SYRINGE 1ML IV PRN (13:45)
[2019-02-04 13:49] LABS: INR 1.06 (0.9-1.15); Partial Thromboplastin Time 25.7 sec (23.64-32.05)
[2019-02-04] MEDS ORDERED: methylPREDNISolone SOD SUCC 125 MG/2 ML VL IV SCH (14:00)
[2019-02-04 14:15] LABS: Amphetamine Screen, Urine NEGATIVE (NEGATIVE); Barbiturate Scree,Urine NEGATIVE (NEGATIVE); Benzodiazephine Screen, Urine NEGATIVE (NEGATIVE); Cannabinoid Screen, Urine NEGATIVE (NEGATIVE); Cocaine Screen, Urine NEGATIVE (NEGATIVE); Opiate Scree,Urine NEGATIVE (NEGATIVE); Phencyclidine Screen, Urine NEGATIVE (NEGATIVE)
[2019-02-04] MEDS: LEVALBUTEROL HCL 1.25 MG/3 ML NEB NEB SCH ×2 (18:00→22:09)
[2019-02-04] MEDS ORDERED: ACETYLCYSTEINE 10 %(100MG/ML) SOL 4ML NEB SCH (18:00)
[2019-02-04] MEDS: ACETYLCYSTEINE 10 %(100MG/ML) SOL 4ML NEB SCH ×2 (18:58→22:08)
[2019-02-04] MEDS: methylPREDNISolone SOD SUCC 125 MG/2 ML VL IV SCH (19:29)
[2019-02-04] MEDS: BUDESONIDE (INHALATION) 0.5 MG/2 ML NEB NEB SCH (22:08)
--- NOTE | 2019-02-04 22:35 | NUR ---
INFLUENZA A&B SENT TO LAB
--- NOTE | 2019-02-04 22:45 | NUR ---
Admit to [facility]HRYNJ[facility]IETTE admitted to [facility] via gurney on cardiac surgeon, and portable 02. Patient transferred to bed, connected to unit monitoring and oxygen, and weighed by [facility]. Patient oriented to Ivania beck RN, unit, room, bed, and unit policies regarding patient care and visiting hours. All questions and concerns addressed, patient verbalized understanding. NOTE:Patient alert and oriented x4. Left Hand IV noted to be leaking, IV dc'd with catheter fully intact and pressure dressing applied. Right wrist 20g IV flushed and patent.Lungs auscultated left side noted to be diminished and right side coarse. Right elbow abrasion scabbed, no open skin noted. Patient able to turn in bed without issues. Noted to become short of breath when speaking for long periods of time. See interventions for complete assessment. Patient instructed on POC and to call PRN.
--- NOTE | 2019-02-04 23:30 | NUR ---
PM CARE COMPLETE BED BATH PROVIDED. COMPLETE LINEN CHANGE DONE AND NEW GOWN PLACED. PATIENT REPOSITIONED IN BED FOR COMFORT.
[2019-02-05] VITALS (12 sets, daily range): BP systolic 87–117; BP diastolic 52–68
--- NOTE | 2019-02-05 | NUR ---
SPUTUM SAMPLE SENT TO LAB VIA BULLET
[2019-02-05] MEDS: methylPREDNISolone SOD SUCC 125 MG/2 ML VL IV SCH ×5 (00:12→23:42)
[2019-02-05] MEDS: IPRATROPIUM BROM 0.5 MG/2.5ML INH SOL NEB SCH ×6 (02:19→21:54)
[2019-02-05] MEDS: LEVALBUTEROL HCL 1.25 MG/3 ML NEB NEB SCH ×4 (05:56→21:54)
[2019-02-05] MEDS: ACETYLCYSTEINE 10 %(100MG/ML) SOL 4ML NEB SCH ×3 (05:56→21:54)
[2019-02-05] MEDS: ACCU-CHEK COMFORT CURVE STRIP VI SCH ×4 (06:18→21:52)
[2019-02-05] MEDS: InsuLIN REG 1unit/0.01ml Soln (100units/ml) SC SCH ×4 (06:33→21:52)
--- NOTE | 2019-02-05 07:21 | NUR ---
END OF SHIFT NOTE PATIENT RESTING IN BED ON BIPAP NO S/S OF DISTRESS OR SOB. HR 72, RR 12, SPO2 96%. CARE ENDORSED TO DAY SHIFT RN.
--- NOTE | 2019-02-05 07:30 | NUR ---
Respiratory note: PT TAKEN OFF BIPAP AND PLACED ON 5 L NC. TOLERATING CHANGE WELL.
--- NOTE | 2019-02-05 08:00 | NUR ---
Opening Shift Note Assumed care of patient, awake and alert. A&Ox4. Patient on the monitor. Patient on 3L NC saturation at 95%. IV right wrist 20G leaking at the site. IV to be removed. No S/S of distress/SOB or pain. Instructed on POC and to call for assist. Bed locked and in the lowest position, side rails up x2, call light with in reach. Will continue to monitor.
--- NOTE | 2019-02-05 08:30 | NUR ---
Patient sitting up in bed eating breakfast independently. Will continue to monitor.
[2019-02-05] MEDS ORDERED: DOBUTamine 1000MCG/ML 100 ML IV ONE (08:46)
--- NOTE | 2019-02-05 09:00 | NUR ---
Colorman at bedside.
[2019-02-05] MEDS: Ezetimibe (Zetia) 10 MG TAB PO SCH (10:00)
--- NOTE | 2019-02-05 10:00 | NUR ---
Medication dosages, usages, and side effects explained to patient. Patient verbalized understanding. Will continue to monitor.
--- NOTE | 2019-02-05 10:20 | NUR ---
IV insertion IV access obtained, via clean sterile technique by inserting 20 gauge catheter at LT foreram after two attempts. IV secured properly. No trauma to site. Patient tolerated well.
--- NOTE | 2019-02-05 10:25 | NUR ---
IV removal RT wrist IV leaking and tender, disconinuedd with sterile technique, catheter fully intact. Pressure dressing applied to site. Patient tolerated procedure well.
[2019-02-05] MEDS: BUDESONIDE (INHALATION) 0.5 MG/2 ML NEB NEB SCH ×2 (10:26→18:14)
[2019-02-05] MEDS: AZITHROMYCIN 250 MG TAB PO SCH (10:26)
[2019-02-05] MEDS: LISINOPRIL 10 MG TAB PO SCH (10:36)
[2019-02-05] MEDS: cefTRIAXone 1GM/50ML D5W 50 ML IV SCH (10:37)
--- NOTE | 2019-02-05 10:55 | NUR ---
Dr. Sousa at bedside.
--- NOTE | 2019-02-05 11:00 | NUR ---
Patient taken down to stress test by Anya VALDES on portable monitor.
--- NOTE | 2019-02-05 12:45 | NUR ---
Patient back from stress test. Patient on the monitor. Patient sitting up eating lunch. Will continue to monitor.
[2019-02-05] MEDS ORDERED: LOVA20TA4 PO (13:52)
[2019-02-05] MEDS ORDERED: MONT10TA34 PO (13:52)
[2019-02-05] MEDS ORDERED: METF-370 PO (13:52)
--- NOTE | 2019-02-05 15:51 | NUR ---
Assessment and SS consult Pt is a 68 yr old alert and oriented male. SS consult needed for d/c planning. Pt was receiving a breathing tx and gave permission for his sister Sherry, at bedside, to answer questions. Pt lives with his sister and brother in law who provide support and caregiving for the pt. Pt's sister, Sherry can be reached at either [phone] or [phone]. Pt can currently walk a little but has been very weak lately and would benefit from receiving a walker with a seat to take rests during ambulation. Pt's family members help with cooking, cleaning, bathing, transporting, etc. Pt uses in-home 02. Pt admitted with chronic COPD. Pt's primary is Dr Covarrubias. Pt currently receives SS income and has an AD on file stating that Sherry is hi POA. Pt's family members can transport home upon d/c. Pt would benefit in receiving a 4-wheeled walker with a seat to assist with ambulation. No other needs expressed at this time. Addendum: 02/05/19 at 1600 by RICK JUSTICE Amended: Links added.
--- NOTE | 2019-02-05 16:30 | NUR ---
Patient resting at this time. No S/Sof pain/SOB or distress. Will continue to monitor.
--- NOTE | 2019-02-05 18:30 | NUR ---
End of shift note: Patient sitting up in bed eating dinner independently. A&Ox4. Patient on the monitor. Patient on 3L NC saturation at 96%. IV left forearm 20G saline locked patent, clean, dry, and intact. No S/S of distress/SOB or pain. Bed locked and in the lowest position, side rails up x2, call light with in reach. Report to be given to [facility] shift lead RN. Will continue to monitor.
--- NOTE | 2019-02-05 20:40 | NUR ---
Opening Shift Note Assumed care of patient, awake and alert. No S/S of distress/SOB or pain. Patient on 3LNC wheezing auscultated throughout with coarse lung sounds to right middle lobe. Left FA 20G IV flushed and patent. Instructed on POC and sx scheduled for tomorrow, NPO after midnight. Patient states he has been spoken to regarding procedures and he has no further questions. Instructed to call for assist PRN, will continue to monitor for changes Q1hr and PRN.
--- NOTE | 2019-02-05 21:24 | NUR ---
REPORT GIVEN TO GINGER CM RN ALL QUESTIONS ADDRESSED
--- NOTE | 2019-02-05 22:15 | NUR ---
[facility] pt transferred to floor CATHRYNJULIETTE transferred to 221A via bed on energy assistant and portable 02. All patient medications and personal belongings transferred with patient to receiving floor. Patient care transferred to Verito VALDES. NOTE: No distress/SOB or pain noted prior to departure.
--- NOTE | 2019-02-05 22:15 | NUR ---
RECEIVED PT. FROM [facility], FROM LUCIO TOM, PT. IN STABLE CONDITION, NO C/O PAIN. NO SOB. TO CONTINUE PT. CARE.
[2019-02-06] MEDS: LEVALBUTEROL HCL 1.25 MG/3 ML NEB NEB SCH ×6 (02:00→22:25)
[2019-02-06] MEDS: IPRATROPIUM BROM 0.5 MG/2.5ML INH SOL NEB SCH ×6 (02:00→22:25)
--- NOTE | 2019-02-06 02:00 | NUR ---
Respiratory note: PT SEEN FOR SCHEDULED MED NEB TX AT 0200. PT REFUSED HIS TX AT THIS TIME STATING THAT HE WANTED TO SKIP IT. NO DISTRESS NOTED. PT WAS SLEEPING WHEN ENTERING THE ROOM. PT AWARE TO CALL FOR RT IF HE CHANGES HIS MIND.
[2019-02-06] MEDS: methylPREDNISolone SOD SUCC 125 MG/2 ML VL IV SCH ×3 (05:38→18:11)
[2019-02-06 05:49] VITALS: BP 119/71
[2019-02-06 05:57] LABS: Basophils # (auto) 0 uL; Basophils % (auto) 0.1 % (0.0-2.0); Eosinophils # (auto) 0 uL; Hematocrit 47.8 % (41.0-53.0); Hemoglobin 15.5 g/dL (13.5-17.5); Lymphocytes # (auto) 0.4 uL; Mean Corpuscular Hgb Conc. 32.3 g/dL (32.0-36.0); Mean Corpuscular Volume 86.7 fL (80.0-100.0); Monocytes # (auto) 0.4 uL; Monocytes % (auto) 2.8 % (0.0-12.0); Neutrophils # (auto) 13.2 uL; Neutrophils % (auto) 94.1 % (37.0-80.0); Nucleated Red Blood Cells % 0.1 %; Platelet Count (auto) 164 10^3/uL (140-450); Red Blood Cells 5.51 10^6/uL (4.5-5.90); Red Cell Distribution Width 16.3 % (11.8-14.3)
[2019-02-06] MEDS: ACETYLCYSTEINE 10 %(100MG/ML) SOL 4ML NEB SCH ×3 (06:01→22:25)
[2019-02-06] MEDS: InsuLIN REG 1unit/0.01ml Soln (100units/ml) SC SCH ×4 (06:02→21:46)
[2019-02-06] MEDS: ACCU-CHEK COMFORT CURVE STRIP VI SCH ×4 (06:02→21:46)
[2019-02-06 06:10] LABS: INR 1.05 (0.9-1.15); Partial Thromboplastin Time 24.7 sec (23.64-32.05)
[2019-02-06 06:24] LABS: Potassium 4.5 mmol/L (3.5-5.1)
[2019-02-06 06:29] LABS: BUN/Creatinine Ratio 31.1; Calcium 8.3 mg/dL (8.5-10.1); Magnesium 3.1 mg/dL (1.6-2.6); Phosphorus 3.2 mg/dL (2.5-4.90)
--- NOTE | 2019-02-06 08:00 | NUR ---
Opening Shift Note Assumed care of patient, awake and alert. No S/S of distress/SOB or pain. Maintained on NPO for LHC today. Instructed on POC and to call for assist PRN, will continue to monitor for changes Q1hr and PRN.
--- NOTE | 2019-02-06 08:20 | NUR ---
IV removal IV infiltrated on left forearm. IV DC'd with clean sterile technique, catheter fully intact. Pressure dressing applied to site. Patient tolerated well.
--- NOTE | 2019-02-06 08:30 | NUR ---
IV insertion IV access obtained, via clean sterile technique by inserting 20 gauge catheter at right forearm after one attempt. IV secured properly. No trauma to site. Patient tolerated well.
[2019-02-06 08:44] VITALS: BP 124/72
[2019-02-06] MEDS: Ezetimibe (Zetia) 10 MG TAB PO SCH (10:00)
[2019-02-06] MEDS: LISINOPRIL 10 MG TAB PO SCH (10:24)
[2019-02-06] MEDS: AZITHROMYCIN 250 MG TAB PO SCH (10:24)
[2019-02-06] MEDS: cefTRIAXone 1GM/50ML D5W 50 ML IV SCH (10:25)
[2019-02-06] MEDS: BUDESONIDE (INHALATION) 0.5 MG/2 ML NEB NEB SCH ×2 (10:53→22:25)
[2019-02-06 13:00] VITALS: BP 144/80
--- NOTE | 2019-02-06 14:00 | NUR ---
Patient brought to Director Account Management via bed for Left Heart Catheterization to be performed by Dr. Barahona. Gave reports to Mirella VALDES.
--- NOTE | 2019-02-06 15:16 | NUR ---
RT NOTE: PT. IN WEB ANALYTICS SPECIALIST FOR PROCEDURE, MED NEB TX. NOT GIVEN.
--- NOTE | 2019-02-06 15:52 | NUR ---
PT WAS IN SEARCH OPTIMIZATION ANALYST BOTH ATTEMPTS P.T WENT IN TO DO THERAPY. Addendum: 02/06/19 at 1552 by RICK JOEL PTT Amended: Links added.
[2019-02-06] MEDS ORDERED: ANGIOMAX 250 MG VIAL IV ONE (16:09)
[2019-02-06] MEDS ORDERED: fentaNYL CITRATE 100 MCG/2 ML VL ONE (16:09)
[2019-02-06] MEDS ORDERED: SODIUM CHL 0.9% 0 ML ONE (16:09)
[2019-02-06] MEDS ORDERED: MIDAZOLAM HCL 1MG/1ML-2 ML VIAL ONE (16:09)
[2019-02-06] MEDS ORDERED: LIDOCAINE 2%HCL (LOCAL ANESTH.) INJ 20ML MDV ONE (16:10)
[2019-02-06] MEDS ORDERED: IOHEXOL 350 MG/ML 100ML IJ ONE (16:10)
[2019-02-06] MEDS ORDERED: VERAPAMIL 2.5MG/ML INJ 2ML VIAL IV ONE (16:22)
[2019-02-06] MEDS ORDERED: HEPARIN SODIUM (PORCINE) 5000 UNITS/ML 1ML VIAL ONE (16:22)
--- NOTE | 2019-02-06 17:25 | NUR ---
Received reports from Golf Course Laborer RN, patient has a right radial vasc band and to start deflating 2ml of air at 1800.
--- NOTE | 2019-02-06 17:40 | NUR ---
Patient back to room via bed S/P LHC performed by Dr. Barahona. Per report result is negative. Patient is alert and oriented, not in respiratory distress. With right radial vasc band intact. Will continue to monitor.
--- NOTE | 2019-02-06 18:00 | NUR ---
Started deflating 2ml of air on the right radial vasc band, no bleeding noted. Will continue care.
--- NOTE | 2019-02-06 18:30 | NUR ---
Deflated 2ml of air on the right radial vasc band, no bleeding noted.
--- NOTE | 2019-02-06 19:30 | NUR ---
assumed care, pt. awake, no c/o pain, no sob, deflated 2ml at radial vasc band, no bleeding noted.
--- NOTE | 2019-02-06 19:45 | NUR ---
deflated 2ml on rt. vasc band, no bleeding noted.
--- NOTE | 2019-02-06 20:30 | NUR ---
deflated 2ml on rt. vasc band, no bleeding, removed vasc band, applied dressing.
[2019-02-06 21:15] VITALS: BP 144/80
[2019-02-06] MEDS: ACETAMINOPHEN 325 MG TAB PO PRN (21:37)
[2019-02-06 22:00] VITALS: BP 125/67
[2019-02-07] VITALS (7 sets, daily range): BP systolic 104–131; BP diastolic 62–72
[2019-02-07] MEDS: IPRATROPIUM BROM 0.5 MG/2.5ML INH SOL NEB SCH ×6 (02:20→22:06)
[2019-02-07] MEDS: LEVALBUTEROL HCL 1.25 MG/3 ML NEB NEB SCH ×6 (02:20→22:06)
[2019-02-07] MEDS: methylPREDNISolone SOD SUCC 125 MG/2 ML VL IV SCH ×3 (05:35→21:34)
[2019-02-07] MEDS: ACETYLCYSTEINE 10 %(100MG/ML) SOL 4ML NEB SCH ×2 (06:05→14:10)
[2019-02-07] MEDS: BUDESONIDE (INHALATION) 0.5 MG/2 ML NEB NEB SCH ×2 (06:05→19:09)
[2019-02-07] MEDS: ACCU-CHEK COMFORT CURVE STRIP VI SCH ×4 (06:08→21:58)
[2019-02-07] MEDS: InsuLIN REG 1unit/0.01ml Soln (100units/ml) SC SCH ×4 (06:08→21:58)
--- NOTE | 2019-02-07 08:00 | NUR ---
Opening Shift Note Assumed care of patient, awake and alert. No S/S of distress/SOB or pain. With dressing on the right wrist dry and intact. Instructed on POC and to call for assist PRN, will continue to monitor for changes Q1hr and PRN.
[2019-02-07] MEDS: cefTRIAXone 1GM/50ML D5W 50 ML IV SCH (09:38)
[2019-02-07] MEDS: AZITHROMYCIN 250 MG TAB PO SCH (09:38)
[2019-02-07] MEDS: LISINOPRIL 10 MG TAB PO SCH (09:41)
[2019-02-07] MEDS: Ezetimibe (Zetia) 10 MG TAB PO SCH (10:00)
--- NOTE | 2019-02-07 12:28 | NUR ---
Nutrition Assessment Notes please see attached link for complete assessment Est. Needs based on ABW (68 kg): 8912-2488 kcal (23-25 kcal/kgBW), 68-74 gms pro (1.0-1.1 gms/kgBW). Will continue to monitor pertinent labs and reassess nutrient need prn Addendum: 02/07/19 at [address] Amended: Links added.
[2019-02-07] MEDS ORDERED: ROCURONIUM 10MG/ML 10ML VIAL IV ONE (12:38)
[2019-02-07] MEDS ORDERED: ETOMIDATE (2MG/ML) 20ML VIAL IV ONE (12:38)
[2019-02-07] MEDS ORDERED: SUCCINYLCHOLINE CHLORIDE 20 MG/ML 10ML VIAL IV ONE (12:38)
--- NOTE | 2019-02-07 15:00 | NUR ---
Dr. Lundberg at the bedside. Orders received. Patient is for Bronchoscopy tomorrow at [address] P[address] Sousa about this. Waiting for call back.
--- NOTE | 2019-02-07 18:36 | NUR ---
Discharge was hold for today, patient will undergo Bronchoscopy tomorrow.
--- NOTE | 2019-02-07 19:15 | NUR ---
assumed care, pt. awake, no c/o pain, advised pt. npo after mn, for broncoscopy in am, not in distress.
[2019-02-08] MEDS: LEVALBUTEROL HCL 1.25 MG/3 ML NEB NEB SCH ×6 (02:00→22:03)
[2019-02-08] MEDS: IPRATROPIUM BROM 0.5 MG/2.5ML INH SOL NEB SCH ×6 (02:00→22:03)
--- NOTE | 2019-02-08 02:25 | NUR ---
PT REQUESTED NOT TO BE WOKEN UP AT 0200 SCHEDULED TX.
[2019-02-08] MEDS: methylPREDNISolone SOD SUCC 125 MG/2 ML VL IV SCH ×3 (05:31→21:42)
[2019-02-08] MEDS: InsuLIN REG 1unit/0.01ml Soln (100units/ml) SC SCH ×4 (06:01→21:42)
[2019-02-08] MEDS: ACCU-CHEK COMFORT CURVE STRIP VI SCH ×4 (06:02→21:43)
[2019-02-08 06:25] VITALS: BP 126/80
--- NOTE | 2019-02-08 08:05 | NUR ---
IV removal Patient complained of pain on IV site, noted redness and infiltration on the right forearm. IV DC'd with clean sterile technique, catheter fully intact. Pressure dressing applied to site. Patient tolerated well.
--- NOTE | 2019-02-08 08:10 | NUR ---
IV insertion IV access obtained, via clean sterile technique by inserting 20 gauge catheter at left forearm after one attempt. IV secured properly. No trauma to site. Patient tolerated well.
[2019-02-08] MEDS ORDERED: BENZOCAINE (DENTAL) 20 % SPRAY 60ML MT ONE (08:28)
[2019-02-08] MEDS ORDERED: LIDOCAINE 2%HCL (LOCAL ANESTH.) INJ 20ML MDV ONE (08:28)
[2019-02-08] MEDS ORDERED: EPINEPHrine HCL 1 MG/1 ML AMP ONE (08:29)
[2019-02-08] MEDS ORDERED: SODIUM CHLORIDE LOCK 20 ML ONE (08:29)
[2019-02-08 08:30] VITALS: BP 133/78
[2019-02-08] MEDS ORDERED: LIDOCAINE HCL 2% TOP JELLY 5ML TOP ONE (08:30)
[2019-02-08] MEDS ORDERED: ACETYLCYSTEINE 20%(200MG/ML) SOL 4ML IN ONE (08:45)
--- NOTE | 2019-02-08 08:49 | NUR ---
Hold discharge per Dr. Sousa.
[2019-02-08] MEDS: LISINOPRIL 10 MG TAB PO SCH (09:00)
[2019-02-08] MEDS: AZITHROMYCIN 250 MG TAB PO SCH (09:00)
[2019-02-08] MEDS: cefTRIAXone 1GM/50ML D5W 50 ML IV SCH (09:00)
[2019-02-08] MEDS: Ezetimibe (Zetia) 10 MG TAB PO SCH (09:05)
[2019-02-08] MEDS: BUDESONIDE (INHALATION) 0.5 MG/2 ML NEB NEB SCH ×2 (11:32→18:16)
[2019-02-08] MEDS: ACETAMINOPHEN 325 MG TAB PO PRN (12:01)
[2019-02-08 13:00] VITALS: BP 128/79
[2019-02-08] MEDS ORDERED: LIDOCAINE HCL 2 % INJ 2ML MPF NEB ONE ×2 (13:00→13:15)
[2019-02-08] MEDS ORDERED: LEVALBUTEROL HCL 1.25 MG/3 ML NEB NEB ONE (13:00)
--- NOTE | 2019-02-08 13:25 | NUR ---
Patient brought to OR for Bronchoscopy. Gave reports to Shasha VALDES.
--- NOTE | 2019-02-08 13:48 | NUR ---
LUCIO BUTT P.T TODAY PATIENT HAVING PROCEDURE. Addendum: 02/08/19 at 1349 by RICK JOEL PTT Amended: Links added.
[2019-02-08] MEDS: fentaNYL CITRATE 100 MCG/2 ML VL ONE ×3 (13:54→14:04)
[2019-02-08] MEDS: MIDAZOLAM HCL 5 MG/ML-1ML VIAL ONE ×3 (13:54→14:04)
[2019-02-08] MEDS: ACETYLCYSTEINE 20%(200MG/ML) SOL 4ML NEB SCH ×2 (13:56→22:00)
[2019-02-08] MEDS ORDERED: SODIUM CHLORIDE LOCK 10 ML ONE (14:05)
[2019-02-08] MEDS ORDERED: MIDAZOLAM HCL 5 MG/ML-1ML VIAL ONE (14:06)
[2019-02-08] MEDS ORDERED: fentaNYL CITRATE 100 MCG/2 ML VL ONE (14:06)
--- NOTE | 2019-02-08 14:33 | NUR ---
Respiratory note: BEGAN BRONCH AT [address] SCHMIDT, PATIETN WAS PLACED ON OXYMIZER AT 12 L AND PLACED PATIENT ON BIPAP WITH AN 8.[address] SCHMIDT REQUEST. PATIENT WAS EXTUBATED AT 1433 WITHOUT ANY ADVERSE REACTIONS. THEN PLACED PATIENT ON 10 L OXYMIZER. WILL CONTINUE TO MONITOR.
[2019-02-08 17:00] VITALS: BP 108/72
--- NOTE | 2019-02-08 17:20 | NUR ---
Patient back to room via bed S/P Bronchoscopy performed by Dr. Lundberg. Patient with O2 at 8lpm/oxymizer continuously administered. Reports received from Destiny VALDES PACU earlier. Patient is alert and oriented, no complaints of pain. Bed alarm on and side rails up x2. Will continue to monitor.
[2019-02-08] MEDS ORDERED: MAGNESIUM SULFATE 1GM/100ML 100 ML IV SCH (18:00)
--- NOTE | 2019-02-08 19:15 | NUR ---
ASSUMED CARE, PT. AWAKE, NO C/O PAIN, NOT IN DISTRESS.
[2019-02-08 22:00] VITALS: BP 135/81
[2019-02-09] MEDS: IPRATROPIUM BROM 0.5 MG/2.5ML INH SOL NEB SCH ×3 (02:02→11:16)
[2019-02-09] MEDS: LEVALBUTEROL HCL 1.25 MG/3 ML NEB NEB SCH ×3 (02:02→11:16)
[2019-02-09 05:00] VITALS: BP 103/70
[2019-02-09] MEDS: methylPREDNISolone SOD SUCC 125 MG/2 ML VL IV SCH (05:31)
[2019-02-09] MEDS: BUDESONIDE (INHALATION) 0.5 MG/2 ML NEB NEB SCH (06:00)
[2019-02-09] MEDS: ACETYLCYSTEINE 20%(200MG/ML) SOL 4ML NEB SCH (06:01)
[2019-02-09] MEDS: InsuLIN REG 1unit/0.01ml Soln (100units/ml) SC SCH (06:16)
[2019-02-09] MEDS: ACCU-CHEK COMFORT CURVE STRIP VI SCH (06:16)
--- NOTE | 2019-02-09 06:50 | NUR ---
Opening Shift Note Assumed care of patient, awake and alert. No S/S of distress/SOB or pain. Insructed on POC and to callfor assist PRN, will continue to monitor for changes Q1hr and PRN.
[2019-02-09 07:49] LABS: Basophils # (auto) 0 uL; Basophils % (auto) 0.1 % (0.0-2.0); Eosinophils # (auto) 0 uL; Hematocrit 49.7 % (41.0-53.0); Hemoglobin 16.3 g/dL (13.5-17.5); Lymphocytes # (auto) 0.3 uL; Mean Corpuscular Hemoglobin 28.3 pg (28.0-32.0); Mean Corpuscular Hgb Conc. 32.7 g/dL (32.0-36.0); Mean Corpuscular Volume 86.4 fL (80.0-100.0); Monocytes # (auto) 0.3 uL; Monocytes % (auto) 2.3 % (0.0-12.0); Neutrophils # (auto) 10.6 uL; Neutrophils % (auto) 94.6 % (37.0-80.0); Nucleated Red Blood Cells % 0.1 %; Platelet Count (auto) 135 10^3/uL (140-450); Red Blood Cells 5.75 10^6/uL (4.5-5.90); Red Cell Distribution Width 16.3 % (11.8-14.3); White Blood Cell 11.2 10^3/uL (4.4-10.8)
[2019-02-09 08:11] LABS: Albumin 3.1 g/dL (3.4-5.0); BUN/Creatinine Ratio 26.4; Calcium 7.8 mg/dL (8.5-10.1); Potassium 4.6 mmol/L (3.5-5.1)
[2019-02-09 08:14] LABS: Bilirubin, Total 0.5 mg/dL (0.2-1.0); Total Protein 6.3 g/dL (6.4-8.2)
--- NOTE | 2019-02-09 08:45 | NUR ---
MD SCHMIDT ROUNDED ON PATIENT TOOK PT OFF OXIMIZER OUT ON 2L NC SAT 92-93% CLEARED PER MD SCHMIDT FOR DISCHARGE STATED HE WILL CHECK IT BY HOSPITALIST FOR DC ORDERS
[2019-02-09] MEDS: cefTRIAXone 1GM/50ML D5W 50 ML IV SCH (08:47)
[2019-02-09 09:00] VITALS: BP 121/70
[2019-02-09] MEDS: Ezetimibe (Zetia) 10 MG TAB PO SCH (09:57)
[2019-02-09] MEDS: LISINOPRIL 10 MG TAB PO SCH (09:58)
--- NOTE | 2019-02-09 11:08 | NUR ---
notified sister paul of pt discharge
== END 2019-02-09 12:36 | disposition home or self-care (01) | DRG 280 ==
LOC: EDBD 19:39 → ER 19:41 → TELE 19:42 → MERGE 19:42 → DOU IN ICU 22:20 → TELE-CENTR 02-05 22:30 → CENTRAL 02-08 10:40 → TELE-CENTR 02-09 06:59
PROVIDERS: ADMIT Hospitalist; ATTEND Internal Medicine
PROC: 5A09457 Assistance with Respiratory Ventilation, 24-96 Consecutive Hours, Continuous Positive Airway Pressure (ICD-10-PCS; 2019-02-03)
PROC: B2111ZZ Fluoroscopy of Multiple Coronary Arteries using Low Osmolar Contrast (ICD-10-PCS; principal; 2019-02-06)
PROC: 4A023N7 Measurement of Cardiac Sampling and Pressure, Left Heart, Percutaneous Approach (ICD-10-PCS; 2019-02-06)
PROC: B2151ZZ Fluoroscopy of Left Heart using Low Osmolar Contrast (ICD-10-PCS; 2019-02-06)
PROC: 0B9D8ZX Drainage of Right Middle Lung Lobe, Via Natural or Artificial Opening Endoscopic, Diagnostic (ICD-10-PCS; 2019-02-08)
DX: I21.A1 Myocardial infarction type 2 (principal); J18.9 Pneumonia, unspecified organism; J96.01 Acute respiratory failure with hypoxia; J96.02 Acute respiratory failure with hypercapnia; J44.1 Chronic obstructive pulmonary disease with (acute) exacerbation; E87.2 Acidosis; T17.890A Other foreign object in other parts of respiratory tract causing asphyxiation, initial encounter; I16.0 Hypertensive urgency; I27.20 Pulmonary hypertension, unspecified; K76.0 Fatty (change of) liver, not elsewhere classified; E78.5 Hyperlipidemia, unspecified; B96.20 Unspecified Escherichia coli [E. coli] as the cause of diseases classified elsewhere; X58.XXXA Exposure to other specified factors, initial encounter; I10 Essential (primary) hypertension; E11.9 Type 2 diabetes mellitus without complications; E66.01 Morbid (severe) obesity due to excess calories; Z79.84 Long term (current) use of oral hypoglycemic drugs; Z88.0 Allergy status to penicillin; Z87.891 Personal history of nicotine dependence; Z88.8 Allergy status to other drugs, medicaments and biological substances; Z79.899 Other long term (current) drug therapy; Y93.89 Activity, other specified; Y92.89 Other specified places as the place of occurrence of the external cause; Y99.8 Other external cause status; Z68.30 Body mass index [BMI] 30.0-30.9, adult
CPT/HCPCS: 31624; 36415; 36600; 71045; 71046; 71260; 74177; 78452; 80048; 80053; 80061; 80307; 81001; 82043; 82805; 82962; 83036; 83605; 83735; 83880; 84100; 84443; 84484; 85025; 85610; 85730; 86738; 87040; 87070; 87077; 87081; 87186; 87205; 87278; 87804; 93005; 93017; 93306; 93458; 94640; 94644; 94660; 97116; 97530; 99152; 99291; G0378; J0171; J0330; J0696; J1815; J2250

== ENCOUNTER 2019-03-29 03:49 | Inpatient (IN) | payer OTHER, MEDICAID ==
[~2019-03-29] VITALS: Ht 172.7 cm; Wt 79.3 kg
[~2019-03-29 03:49] MED LIST changes: +IPRA0.00 IN; -IPRA1SOL3 IN
[2019-03-29] MEDS ORDERED: LEVALBUTEROL HCL 1.25 MG/3 ML NEB NEB STA (03:50)
[2019-03-29] MEDS ORDERED: IPRATROPIUM BROM 0.5 MG/2.5ML INH SOL ONE (03:55)
[2019-03-29] MEDS ORDERED: LEVALBUTEROL HCL 1.25 MG/3 ML NEB ONE (03:55)
[2019-03-29] MEDS ORDERED: IPRATROPIUM BROM 0.5 MG/2.5ML INH SOL NEB ONE (04:00)
[2019-03-29] MEDS ORDERED: cefTRIAXone 1GM/50ML D5W 50 ML IV ONE (04:45)
[2019-03-29] MEDS ORDERED: methylPREDNISolone SOD SUCC 125 MG/2 ML VL IV ONE (04:45)
[2019-03-29] MEDS ORDERED: ONDANSETRON HCL 4 MG/2 ML VIAL IV ONE (05:45)
[2019-03-29] MEDS ORDERED: MORPHINE SULF INJ 2 MG/ML SYRINGE 1ML IV ONE (05:45)
[2019-03-29 06:45] VITALS: BP 144/87
[2019-03-29 06:45] LABS: Albumin 3.5 g/dL (3.4-5.0); BUN/Creatinine Ratio 15.1; Calcium 8.4 mg/dL (8.5-10.1); Potassium 4.4 mmol/L (3.5-5.1)
[2019-03-29 06:54] LABS: Bilirubin, Total 0.3 mg/dL (0.2-1.0); Total Protein 7.1 g/dL (6.4-8.2)
[2019-03-29] MEDS ORDERED: TEMAZEPAM 15 MG CAP PO PRN (07:45)
[2019-03-29] MEDS ORDERED: DEXTROSE (50%) 50ML SYRG IV PRN (07:45)
[2019-03-29] MEDS ORDERED: ACETAMINOPHEN 325 MG TAB PO PRN (07:45)
[2019-03-29] MEDS ORDERED: NITROGLYCERIN 0.4 MG SL TAB SL PRN (07:45)
[2019-03-29] MEDS ORDERED: MORPHINE SULF INJ 2 MG/ML SYRINGE 1ML IV PRN (07:45)
[2019-03-29 08:00] VITALS: BP 150/84
[2019-03-29 08:50] LABS: INR 1.03 (0.9-1.15); Partial Thromboplastin Time 24.2 sec (23.64-32.05)
[2019-03-29 09:11] VITALS: BP 141/76
[2019-03-29] MEDS: cefTRIAXone 1GM/50ML D5W 50 ML IV SCH (09:22)
[2019-03-29] MEDS ORDERED: methylPREDNISolone SOD SUCC 125 MG/2 ML VL IV SCH (10:00)
--- NOTE | 2019-03-29 10:20 | NUR ---
PT TAKEN OFF BIPAP TO TRANSPORT TO ASSIGNED BED. PT IS ON 3LNC, SPO2 95%.
[2019-03-29] MEDS: FAMOTIDINE 20 MG TAB PO SCH ×2 (10:28→22:02)
[2019-03-29] MEDS: AZITHROMYCIN 500MG/ 250ML 250 ML IV SCH (10:28)
--- NOTE | 2019-03-29 10:33 | NUR ---
PT PLACED BACK ON BIPAP / BUR 12, 35% FIO2. BIPAP PLUGGED TO RED WALL OUTLET. BIPAP ALARMS SET AND AUDIBLE AT RN STATION. SPO2 97%.
[2019-03-29] MEDS: IPRATROPIUM BROM 0.5 MG/2.5ML INH SOL NEB SCH ×2 (11:07→18:55)
[2019-03-29] MEDS: ALBUTEROL SULF 2.5 MG/0.5ML(0.5%) NEB SOLN NEB SCH ×2 (11:07→18:55)
[2019-03-29 12:02] LABS: Basophils # (auto) 0.1 uL; Basophils % (auto) 0.5 % (0.0-2.0); Eosinophils # (auto) 0.1 uL; Eosinophils % (auto) 0.5 % (0.0-7.0); Hematocrit 46.8 % (41.0-53.0); Hemoglobin 15.6 g/dL (13.5-17.5); Lymphocytes # (auto) 0.4 uL; Lymphocytes % (auto) 4.1 % (10.0-50.0); Mean Corpuscular Hemoglobin 29.1 pg (28.0-32.0); Mean Corpuscular Hgb Conc. 33.3 g/dL (32.0-36.0); Mean Corpuscular Volume 87.4 fL (80.0-100.0); Monocytes # (auto) 0.1 uL; Neutrophils % (auto) 93.9 % (37.0-80.0); Nucleated Red Blood Cells % 0.1 %; Platelet Count (auto) 171 10^3/uL (140-450); Red Blood Cells 5.35 10^6/uL (4.5-5.90); Red Cell Distribution Width 16.5 % (11.8-14.3); White Blood Cell 10.7 10^3/uL (4.4-10.8)
[2019-03-29] MEDS: ACCU-CHEK COMFORT CURVE STRIP VI SCH ×2 (12:28→17:38)
[2019-03-29] MEDS: InsuLIN REG 1unit/0.01ml Soln (100units/ml) SC SCH ×2 (12:29→18:00)
[2019-03-29] MEDS ORDERED: IPRATROPIUM BROM 0.5 MG/2.5ML INH SOL NEB PRN (13:30)
[2019-03-29] MEDS ORDERED: ALBUTEROL SULF 2.5 MG/0.5ML(0.5%) NEB SOLN NEB PRN (13:30)
[2019-03-29] MEDS ORDERED: IOHEXOL 350 MG/ML 100ML IJ ONE (13:38)
--- NOTE | 2019-03-29 14:01 | NUR ---
PT TAKEN OFF BIPAP AT THIS TIME TO GO TO CT. PT ON 3LNC. SPO2 95%.
[2019-03-29 17:04] VITALS: BP 122/77
[2019-03-29] MEDS: SODIUM CHLORIDE 0.9% 1,000 ML IV SCH (17:07)
--- NOTE | 2019-03-29 19:45 | NUR ---
Opening Shift Note Assumed care of patient, awake and alert, oriented x 4, clear speech, follows direction. On oxygen at 3L via NC, with even and unlabored respirations, no S/S of distress or SOB. Patient ambulate with steady gait and turns independently in bed. Bed low locked position with side rails up x 2 and call light within reach. Instructed on POC and to call for assist PRN, will continue to monitor for changes Q1hr and PRN.
[2019-03-29 20:00] VITALS: BP 118/62
[2019-03-29] MEDS: methylPREDNISolone SOD SUCC 40 MG/ML VL IV SCH (22:03)
[2019-03-29] MEDS: ATORVASTATIN 20 MG TAB PO SCH (22:03)
[2019-03-29] MEDS: MONTELUKAST SODIUM 10 MG TAB PO SCH (22:04)
[2019-03-29 22:16] VITALS: BP 118/62
--- NOTE | 2019-03-30 00:20 | NUR ---
ATTEMPTED TO PLACE PT ON BIPAP TWICE, PT REFUSING. NO SOB NOTED
[2019-03-30] MEDS: IPRATROPIUM BROM 0.5 MG/2.5ML INH SOL NEB SCH ×4 (00:27→18:38)
[2019-03-30] MEDS: ALBUTEROL SULF 2.5 MG/0.5ML(0.5%) NEB SOLN NEB SCH ×4 (00:27→18:38)
[2019-03-30] MEDS: ACCU-CHEK COMFORT CURVE STRIP VI SCH ×5 (00:42→22:19)
[2019-03-30] MEDS: InsuLIN REG 1unit/0.01ml Soln (100units/ml) SC SCH ×5 (00:42→22:17)
[2019-03-30 05:20] VITALS: BP 126/76
[2019-03-30] MEDS: SODIUM CHLORIDE 0.9% 1,000 ML IV SCH (06:58)
--- NOTE | 2019-03-30 07:05 | NUR ---
Closing Note patient resting in bed with oxygen on, even and unlabored respirations, no s/s of distress. Endorsed care to day shift RN.
--- NOTE | 2019-03-30 07:30 | NUR ---
Opening Shift Note Assumed care of patient, who is alert and oriented x4. No S/S of distress/SOB or pain. Patient currently on 3L via nasal cannula with O2 saturations of 91%. 22g Peripheral IV to the right hand is asymptomatic, patent and currently running sodium chloride at 60 ml/hr. Bed is low, locked with 2x side rails up. Call light is within reach. Instructed on POC and to call for assist PRN, will continue to monitor for changes Q1hr and PRN.
[2019-03-30 07:41] LABS: Basophils # (auto) 0 uL; Basophils % (auto) 0.2 % (0.0-2.0); Eosinophils # (auto) 0 uL; Hematocrit 43.5 % (41.0-53.0); Hemoglobin 14.3 g/dL (13.5-17.5); Lymphocytes # (auto) 0.7 uL; Lymphocytes % (auto) 5.6 % (10.0-50.0); Mean Corpuscular Hemoglobin 28.9 pg (28.0-32.0); Mean Corpuscular Volume 87.6 fL (80.0-100.0); Monocytes # (auto) 0.7 uL; Monocytes % (auto) 5.2 % (0.0-12.0); Neutrophils # (auto) 11.7 uL; Nucleated Red Blood Cells % 0.1 %; Platelet Count (auto) 173 10^3/uL (140-450); Red Blood Cells 4.96 10^6/uL (4.5-5.90); White Blood Cell 13.2 10^3/uL (4.4-10.8)
[2019-03-30 08:00] VITALS: BP 120/71
[2019-03-30 08:00] LABS: BUN/Creatinine Ratio 19.5; Calcium 8.6 mg/dL (8.5-10.1); Potassium 4.6 mmol/L (3.5-5.1)
[2019-03-30] MEDS: cefTRIAXone 1GM/50ML D5W 50 ML IV SCH (08:38)
[2019-03-30 09:00] VITALS: BP 120/71
[2019-03-30] MEDS: FAMOTIDINE 20 MG TAB PO SCH ×2 (09:58→22:00)
[2019-03-30] MEDS: methylPREDNISolone SOD SUCC 40 MG/ML VL IV SCH ×2 (09:58→22:17)
[2019-03-30] MEDS: AZITHROMYCIN 500MG/ 250ML 250 ML IV SCH (09:58)
[2019-03-30 13:00] VITALS: BP 118/63
[2019-03-30] MEDS ORDERED: BUDESONIDE (INHALATION) 0.5 MG/2 ML NEB NEB ONE (14:45)
--- NOTE | 2019-03-30 16:48 | NUR ---
PT REPORTS THAT HE WALKS FINE AND DOES NOT NEED P.T. INTERVENTION.
[2019-03-30 17:00] VITALS: BP 129/73
[2019-03-30] MEDS: BUDESONIDE (INHALATION) 0.5 MG/2 ML NEB NEB SCH (18:38)
[2019-03-30 21:57] VITALS: BP 112/73
[2019-03-30] MEDS: ATORVASTATIN 20 MG TAB PO SCH (22:16)
[2019-03-30] MEDS: MONTELUKAST SODIUM 10 MG TAB PO SCH (22:17)
[2019-03-31] MEDS: IPRATROPIUM BROM 0.5 MG/2.5ML INH SOL NEB SCH ×4 (00:15→18:59)
[2019-03-31] MEDS: ALBUTEROL SULF 2.5 MG/0.5ML(0.5%) NEB SOLN NEB SCH ×4 (00:15→18:59)
[2019-03-31 04:49] VITALS: BP 130/81
[2019-03-31] MEDS: InsuLIN REG 1unit/0.01ml Soln (100units/ml) SC SCH ×3 (05:46→17:14)
[2019-03-31] MEDS: ACCU-CHEK COMFORT CURVE STRIP VI SCH ×3 (06:00→17:14)
[2019-03-31] MEDS: BUDESONIDE (INHALATION) 0.5 MG/2 ML NEB NEB SCH ×2 (06:19→18:59)
[2019-03-31 09:00] VITALS: BP 125/73
[2019-03-31] MEDS: cefTRIAXone 1GM/50ML D5W 50 ML IV SCH (10:46)
[2019-03-31] MEDS: FAMOTIDINE 20 MG TAB PO SCH ×2 (10:46→21:13)
[2019-03-31] MEDS: AZITHROMYCIN 250 MG TAB PO SCH (10:46)
[2019-03-31] MEDS: methylPREDNISolone SOD SUCC 40 MG/ML VL IV SCH ×2 (10:46→21:12)
[2019-03-31 13:00] VITALS: BP 125/73
--- NOTE | 2019-03-31 19:10 | NUR ---
OPENING NOTE- NOC SHIFT PATIENT IS ALERT AND ORIENTED X4, ANSWERS IN COMPLETE SENTENCES AND MAKES APPROPRIATE EYE CONTACT. PATIENT IS IN BED, BED IS LOCKED AT LOWEST POSITION, BED RAILS UP X2 AND HEAD OF BED IS UP >30 DEGREES FOR SAFETY PRECAUTIONS. BEDSIDE TABLE WITHIN REACH, CALL LIGHT WITHIN REACH. DISCUSSED POC WITH PATIENT AND INSTRUCTED TO CALL PRN; PATIENT VERBALIZED UNDERSTANDING. WILL CONTINUE TO MONITOR Q1H AND PRN.
[2019-03-31] MEDS: ATORVASTATIN 20 MG TAB PO SCH (21:13)
[2019-03-31] MEDS: MONTELUKAST SODIUM 10 MG TAB PO SCH (21:13)
[2019-03-31 22:00] VITALS: BP 137/73
[2019-04-01] MEDS: ALBUTEROL SULF 2.5 MG/0.5ML(0.5%) NEB SOLN NEB SCH ×3 (00:10→12:22)
[2019-04-01] MEDS: IPRATROPIUM BROM 0.5 MG/2.5ML INH SOL NEB SCH ×3 (00:10→12:22)
[2019-04-01] MEDS: ACCU-CHEK COMFORT CURVE STRIP VI SCH ×3 (01:05→12:00)
[2019-04-01] MEDS: InsuLIN REG 1unit/0.01ml Soln (100units/ml) SC SCH ×3 (01:05→13:37)
[2019-04-01 05:30] VITALS: BP 135/81
[2019-04-01] MEDS: BUDESONIDE (INHALATION) 0.5 MG/2 ML NEB NEB SCH (06:53)
--- NOTE | 2019-04-01 07:18 | NUR ---
ENDORSED PATIENT CARE TO DAY SHIFT NURSE SMITH VALDES. NO S/SX OF DISTRESS, SOB OR PAIN.
[2019-04-01] MEDS: FAMOTIDINE 20 MG TAB PO SCH (08:58)
[2019-04-01] MEDS: methylPREDNISolone SOD SUCC 40 MG/ML VL IV SCH (08:58)
[2019-04-01] MEDS: cefTRIAXone 1GM/50ML D5W 50 ML IV SCH (08:59)
[2019-04-01] MEDS: AZITHROMYCIN 250 MG TAB PO SCH (08:59)
[2019-04-01 09:00] VITALS: BP 122/73
[2019-04-01] MEDS ORDERED: AZIT500T PO (12:25)
[2019-04-01 13:08] VITALS: BP 120/72
--- NOTE | 2019-04-01 15:06 | NUR ---
DISCHARGE NOTE PATIENT ALERT AND ORIENTED X4 ALL DISCHARGE INSTRUCTIONS GIVEN ALL QUESTIONS AND CONCERNS ADDRESSED AND ANSWERED. PATIENT VERBALIZED UNDERSTANDING. IV REMOVED CATHETER INTACT PRESSURE DRESSING APPLIED PATIENT TOLERATED WELL. PATIENT ASSISTED TO PERSONAL VEHICLE USING WHEEL CHAIR PATIENT DENIES ALL SOB AND DISTRESS.
== END 2019-04-01 15:00 | disposition home or self-care (01) | DRG 193 ==
LOC: EDBD 03:49 → ER 03:54 → TELE 03:55 → TELE-WESTW 10:50 → WEST WING 03-30 15:27
PROVIDERS: ADMIT Nurse Practitioner; ATTEND Internal Medicine
PROC: 5A09357 Assistance with Respiratory Ventilation, Less than 24 Consecutive Hours, Continuous Positive Airway Pressure (ICD-10-PCS; principal; 2019-03-29)
DX: J18.9 Pneumonia, unspecified organism (principal); J96.20 Acute and chronic respiratory failure, unspecified whether with hypoxia or hypercapnia; J44.1 Chronic obstructive pulmonary disease with (acute) exacerbation; J44.0 Chronic obstructive pulmonary disease with (acute) lower respiratory infection; J20.9 Acute bronchitis, unspecified; G47.33 Obstructive sleep apnea (adult) (pediatric); R00.0 Tachycardia, unspecified; E11.9 Type 2 diabetes mellitus without complications; I10 Essential (primary) hypertension; E78.5 Hyperlipidemia, unspecified; Z80.8 Family history of malignant neoplasm of other organs or systems; Z83.3 Family history of diabetes mellitus; Z90.49 Acquired absence of other specified parts of digestive tract; I25.2 Old myocardial infarction
CPT/HCPCS: 36415; 36600; 71045; 71275; 80048; 80053; 82805; 82962; 83036; 83605; 83735; 84484; 85025; 85379; 85610; 85730; 87804; 94640; 94660; 99291; G0378; J0696; J1815; J2405

== ENCOUNTER 2019-05-19 02:56 | Inpatient (IN) | payer OTHER, MEDICAID ==
[2019-05-19] VITALS (51 sets, daily range): BP systolic 66–159; BP diastolic 35–80
[~2019-05-19] VITALS: Ht 170.2 cm; Wt 74.7 kg
[~2019-05-19 02:56] MED LIST changes: +AZIT500T PO
[2019-05-19] MEDS ORDERED: methylPREDNISolone SOD SUCC 125 MG/2 ML VL IV ONE (03:15)
[2019-05-19] MEDS ORDERED: IPRATROPIUM BROM 0.5 MG/2.5ML INH SOL NEB ONE (03:15)
[2019-05-19] MEDS ORDERED: ALBUTEROL SULF 2.5 MG/0.5ML(0.5%) NEB SOLN NEB ONE (03:15)
[2019-05-19 03:33] LABS: Hemoglobin 17.5 g/dL (13.5-17.5)
[2019-05-19 03:34] LABS: Hematocrit 53.4 % (41.0-53.0); Mean Corpuscular Hemoglobin 29.2 pg (28.0-32.0); Mean Corpuscular Hgb Conc. 32.8 g/dL (32.0-36.0); Mean Corpuscular Volume 89.1 fL (80.0-100.0); Platelet Count (auto) 236 10^3/uL (140-450); Red Blood Cells 5.99 10^6/uL (4.5-5.90); Red Cell Distribution Width 16.8 % (11.8-14.3); White Blood Cell 14.3 10^3/uL (4.4-10.8)
[2019-05-19 03:43] LABS: Basophils % (manual) 0 (0.0-2.0); Blast Cells 0; Metamyelocytes % 0; Myelocytes % 0; Promyelocytes % 0; Reactive Lymphocytes 0
[2019-05-19 03:48] LABS: INR 1.03 (0.9-1.15); Partial Thromboplastin Time 25.3 sec (23.64-32.05)
[2019-05-19 03:49] LABS: Albumin 4.2 g/dL (3.4-5.0); Anion Gap 9 (5-15); Blood Urea Nitrogen 12 mg/dL (7-18); Calcium 8.8 mg/dL (8.5-10.1); Carbon Dioxide 25 mmol/L (21-32); Chloride 106 mmol/L (98-107); Glucose 173 mg/dL (74-106); Magnesium 2.4 mg/dL (1.6-2.6); Potassium 4.8 mmol/L (3.5-5.1); Sodium 140 mmol/L (136-145)
[2019-05-19] MEDS ORDERED: ONDANSETRON HCL 4 MG/2 ML VIAL ONE (03:53)
[2019-05-19 03:55] LABS: Alanine Aminotransferase 23 U/L (16-61); Alkaline Phosphatase 79 U/L (45-117); Aspartate Aminotransferase 21 U/L (15-37); BUN/Creatinine Ratio 11.2; Bilirubin, Total 0.6 mg/dL (0.2-1.0); GFR African American 88 mL/min; GFR Non-African American 73 mL/min; Total Protein 8.3 g/dL (6.4-8.2)
[2019-05-19] MEDS ORDERED: ONDANSETRON HCL 4 MG/2 ML VIAL IV ONE (04:00)
[2019-05-19 04:48] LABS: Band Neutrophils % (manual) 1; Eosinophils % (manual) 25 (0-7); Lymphocytes % (manual) 20 (10.0-50.0); Monocytes % (manual) 7 (0-12)
[2019-05-19] MEDS ORDERED: ACETAMINOPHEN 325 MG TAB PO PRN (07:00)
[2019-05-19] MEDS ORDERED: HYDROcodone-ACET 5/325MG TAB PO PRN (07:00)
[2019-05-19] MEDS ORDERED: DOCUSATE SOD 100 MG CAP PO PRN (07:00)
[2019-05-19] MEDS ORDERED: MORPHINE SULFATE 4 MG/ML SYR/VIAL IV PRN (07:00)
[2019-05-19] MEDS ORDERED: ONDANSETRON HCL 4 MG/2 ML VIAL IV PRN (07:00)
--- NOTE | 2019-05-19 08:11 | NUR ---
RECEIVED REPORT FROM LUCIO HENSON.
[2019-05-19] MEDS: cefTRIAXone 1GM/50ML D5W 50 ML IV SCH (09:07)
[2019-05-19] MEDS: methylPREDNISolone SOD SUCC 125 MG/2 ML VL IV SCH (09:07)
[2019-05-19] MEDS ORDERED: LORazepam 2MG/ML-1ML VIAL ONE (09:37)
[2019-05-19] MEDS: AZITHROMYCIN 500MG/ 250ML 250 ML IV SCH (09:42)
[2019-05-19] MEDS ORDERED: LORazepam 2MG/ML-1ML VIAL IV ONE (09:45)
[2019-05-19] MEDS: ALBUTEROL SULF 2.5 MG/0.5ML(0.5%) NEB SOLN NEB PRN ×2 (09:50→20:24)
[2019-05-19] MEDS: IPRATROPIUM BROM 0.5 MG/2.5ML INH SOL NEB PRN ×2 (09:50→20:24)
[2019-05-19] MEDS: ASPirin-EC 81 mg tab PO SCH (10:00)
[2019-05-19] MEDS ORDERED: MIDAZOLAM HCL 5 MG/ML-1ML VIAL IV ONE (10:45)
[2019-05-19] MEDS ORDERED: MIDAZOLAM DRIP 50 mg/50mL 50 ML IV ONE (10:51)
[2019-05-19] MEDS ORDERED: ETOMIDATE (2MG/ML) 20ML VIAL IV ONE (10:51)
[2019-05-19] MEDS ORDERED: SUCCINYLCHOLINE CHLORIDE 20 MG/ML 10ML VIAL IV ONE ×2 (10:52→11:15)
[2019-05-19] MEDS: MIDAZOLAM DRIP 50 mg/50mL 50 ML IV SCH ×4 (10:59→23:40)
[2019-05-19] MEDS ORDERED: PROPOFOL 100 ML IV ONE (11:15)
[2019-05-19] MEDS: PROPOFOL 100 ML IV SCH ×2 (11:17→16:55)
--- NOTE | 2019-05-19 12:05 | NUR ---
Admit to ICU from ER on vent JULIETTE LOCKETT admitted to ICU via gurney on air sampling and monitoring, intubated and being bagged by Respiratory Therapist. Patient transferred to bed, connected to mechanical ventilator by therapist, YESENIA at bedside. Patient connected to ICU monitoring, weighed by joanna,75.6 KG, oriented to Dora Harrington, primary RN, unit, ventilator and sedation. NOTE:PT INTUBATED AND SEDATED ON DIPRIVAN AND VERSED. INTUBATED WITH 8 FR ETT/22 AT THE LIP, AC 16, TV 500, 75% FIO2 AND PEEP OF 5. LUNGS SLIGHTLY COARSE. SUCTIONED VIA ETT FOR SMALL AMOUNT OF BLOODY SECRETIONS. O2 SAT OF 96%. TELE SR [address] IN LEAD II. PALPABLE PULSES TO ALL EXTREMITIES. SCDS APPLIED TO BLE. +1 NON PITTING EDEMA NOTED TO BILAT ANKLES. ABD SOFT WITH HYPOACTIVE BOWEL SOUNDS.OGT PLACED WITH PLACEMENT VERIFIED BY AUSCULTATION. LAST BM UNKNOWN. LAZARO CATHETER DRAINING LIGHT FLETCHER URINE. TURNED TO HIS SIDE AND SKIN TO BACK AND SACRUM CLEAR OF ANY BREAKDOWN. SOME BRUISING NOTED TO BOTH ARMS. RAILS UP X4 AND BED IN LOW POSITION FOR PT SAFETY. CONTINUE TO MONITOR.
--- NOTE | 2019-05-19 12:10 | NUR ---
Respiratory note: PT TRANSPORTED TO ICU, VENTILATED VIA AMBU BAG, WITHOUT INCIDENT. PT PLACED BACK ON VENT#V6, PLUGGED INTO A RED OUTLET AND PROPER O2 SOURCE. AMBU BAG /MASK AT BEDSIDE. RN AT BEDSIDE. ALARMS VERIFIED AND AUDIBLE. NO VENT CHANGES ORDERED AT THIS TIME. WILL CONTINUE TO MONITOR ORDERED.
[2019-05-19] MEDS ORDERED: PANTOPRAZOLE 40 MG/10 ML VIAL INJ IV ONE (13:00)
--- NOTE | 2019-05-19 13:00 | NUR ---
STARTED NEW IV #20 TO RIGHT FOREARM.
--- NOTE | 2019-05-19 13:15 | NUR ---
Respiratory note: TITRATED FIO2 TO 35%. RN MADE AWARE OF CHANGES.
[2019-05-19] MEDS: NOREPINEPHRINE 8 MG/250ML KIT 250 ML IV SCH (13:35)
--- NOTE | 2019-05-19 14:35 | NUR ---
Respiratory note: VENT SETTINGS CHANGED BY DR SLAUGHTER. LUCIO PAYNE INFORMED RT. NO FOLLOW UP ABG ORDERED.
--- NOTE | 2019-05-19 15:08 | NUR ---
1508 BP 84/51 1515 BP 66/42 TURNED OFF PROPOFOL AND VERSED 1516 BP 52/83 START LEVOPHED AT 5 MCG 1520 146/84 RESTART VERSED AT 12 MG/HR AND PROPOFOL AT 24 MCG 1530 130/80 DECREASE LEVOPHED TO 4 MCG/7.49 ML/HR CONTINUE TO MONITOR SEDATION AND BP
--- NOTE | 2019-05-19 15:08 | NUR ---
TECH AT BEDSIDE PERFORMING DOPPLER STUDY OF BILATERAL LOWER EXTREMITIES. PER TECH, PT IS POSITIVE FOR DVT IN BOTH LEGS. WILL LEAVE OFF SCDS. WILL NOTIFY DR SLAUGHTER.
--- NOTE | 2019-05-19 15:40 | NUR ---
[facility] NOTIFIED BY ELENI, FROM [facility], THAT PT'S DOPPLER STUDY OF BLE SHOWS BILATERAL DVTS PRESENT. CALLED DR SLAUGHTER AND LEFT A DETAILED MESSAGE.
--- NOTE | 2019-05-19 15:45 | NUR ---
DR SLAUGHTER/PHONE RECEIVED A CALL BACK FROM DR SLAUGHTER REGARDING DVT TO BLE. ORDER RECEIVED TO START PT ON A HEPARIN DRIP PER PROTOCOL.
[2019-05-19] MEDS ORDERED: HEPARIN SODIUM (PORCINE) 5000 UNITS/ML 1ML VIAL IV ONE (16:00)
[2019-05-19] MEDS ORDERED: HEPARIN 1,000 UNITS/ml 1ML VIAL ONE (16:29)
[2019-05-19] MEDS ORDERED: HEPARIN SODIUM (PORCINE) 5000 UNITS/ML 1ML VIAL ONE (16:29)
[2019-05-19] MEDS ORDERED: HEPARIN DRIP/D5W 100UNITS/ML 250 ML IV ONE (16:30)
[2019-05-19] MEDS: PANTOPRAZOLE 40 MG/10 ML VIAL INJ IV SCH (16:36)
[2019-05-19] MEDS: HEPARIN DRIP/D5W 100UNITS/ML 250 ML IV SCH (16:43)
--- NOTE | 2019-05-19 16:43 | NUR ---
PT STARTED ON HEPARIN DRIP AT 1350 UNITS/HR AFTER RECEIVING HEPARIN BOLUS OF 6000 UNITS IVP. NUMBERS VERIFIED BY LUCIO LYON, AND ALSO BY THOMAS JOHN. FAMILY AT BEDSIDE AND UPDATED.
[2019-05-19 18:27] LABS: Urine Bacteria FEW /hpf (None Seen); Urine Blood 3+ /uL (Negative); Urine Hyaline Cast FEW /lpf (0 - 2); Urine Specific Gravity 1.014 (1.001-1.035); Urine WBC 5 /hpf (0 - 3)
--- NOTE | 2019-05-19 19:43 | NUR ---
REPORT REPORT GIVEN AND BEDSIDE CHECK DONE.
--- NOTE | 2019-05-19 19:50 | NUR ---
Opening Shift Note: Patient intubated/sedated. Vent: AC rate 20; VT 470; FiO2 30%, PEEP 5. ET size 8.0/24 @ the lip. Pupils bilateral 3 mm in size/sluggish/reactive; facial grimacing with suctioning; flaccid extremities; + cough/gag. NSR/ST 90s-100s. OGT clamped. Pelaez inserted on 05/19/19 for measurement of strict I/O. Skin: no open wounds; generalized bruising present with hyperpigmentation of BLE. IVs: left forearm 20 g IID inserted on 05/19/19; right anterior forearm 20 g running propofol @ 20, Levophed @ 4, & Versed @ 12 inserted on 05/19/19; right posterior forearm 20 g running heparin @ 1350 units/hr inserted on 05/19/19. POC discussed with family at bedside. Pending CPAP trial for AM per Dr. Bansal. Will start to wean sedation in anticipation for CPAP trial. Will round prn and reposition Q2H/prn.
--- NOTE | 2019-05-19 23:30 | NUR ---
Heparin held at this time per protocol; PTT 122.5. Will restart heparin drip at 0030 at a reduced rate (300 units less) per heparin protocol.
[2019-05-19 23:33] LABS: INR 1.11 (0.9-1.15)
[2019-05-19 23:36] LABS: Partial Thromboplastin Time 122.5 sec (23.64-32.05)
[2019-05-20] VITALS (97 sets, daily range): BP systolic 82–169; BP diastolic 51–81
--- NOTE | 2019-05-20 00:30 | NUR ---
Heparin drip restarted per protocol. Rate decrease 300 units: 1350 units to 1050 units/hour. Will redraw PTT/INR at 0630.
[2019-05-20] MEDS: PROPOFOL 100 ML IV SCH ×3 (04:48→14:55)
--- NOTE | 2019-05-20 06:15 | NUR ---
Respiratory note: RECEIVED PATIENT ON V6 V200 VENT ORALLY INTUBATED WITH AN 8.0 ETT SECURED VIA PORSCHE AT THE 23CM MARKING AT THE LIP, AND MECHANICALLY VENTILATED WITH THE CHARTED SETTINGS. SPO2 94%, LUNG SOUNDS CLEAR/DIM T/O, NO SECRETIONS WHEN SUCTIONED. SKIN IS WARM/DRY TO THE TOUCH AND IS INTACT NEAR PORSCHE SITE. THERE IS AN OGT IN PLACE AND SECURED TO THE ETT, NO ADVANCE ACCESS LINES NOTED. NO EDEMA NOTED IN UPPER OR LOWER EXTREMITIES. NO NEW AM CXR TO ASSESS AT THIS TIME. PATIENT IS UNRESPONSIVE TO BOTH VERBAL/TACTILE STIMULI AND IS SEDATED ON A PROPOFOL DRIP. HE IS RESTING COMFORTABLY AND TOLERATING VENT WELL, NO CHANGES MADE. POC FOR DAY IS TO REMOVE SEDATION AND WEAN FROM VENT TOLERATED. WILL COORDINATE WITH AM RN FOR WEANING. VENT PLUGGED INTO RED OUTLET AND ALL ALARMS ARE SET AND AUDIBLE. WILL CONTINUE TO ASSESS PATIENT WELL VENTILATOR FUNCTION.
[2019-05-20 07:01] LABS: INR 1.09 (0.9-1.15)
[2019-05-20] MEDS: MIDAZOLAM DRIP 50 mg/50mL 50 ML IV SCH (08:00)
[2019-05-20] MEDS: cefTRIAXone 1GM/50ML D5W 50 ML IV SCH (09:06)
[2019-05-20] MEDS: methylPREDNISolone SOD SUCC 125 MG/2 ML VL IV SCH (09:06)
[2019-05-20] MEDS: PANTOPRAZOLE 40 MG/10 ML VIAL INJ IV SCH (09:06)
[2019-05-20] MEDS: IPRATROPIUM BROM 0.5 MG/2.5ML INH SOL NEB PRN ×3 (10:26→22:05)
[2019-05-20] MEDS: ALBUTEROL SULF 2.5 MG/0.5ML(0.5%) NEB SOLN NEB PRN ×3 (10:26→22:05)
--- NOTE | 2019-05-20 10:27 | NUR ---
Respiratory note: PRN MED-NEB ADMINISTERED AT THIS TIME FOR INCREASING PIP/MAP.
[2019-05-20] MEDS: AZITHROMYCIN 500MG/ 250ML 250 ML IV SCH (10:30)
[2019-05-20] MEDS: ASPirin-EC 81 mg tab PO SCH (10:31)
[2019-05-20] MEDS: HEPARIN DRIP/D5W 100UNITS/ML 250 ML IV SCH (10:34)
[2019-05-20] MEDS ORDERED: IOHEXOL 350 MG/ML 100ML IJ ONE (11:02)
--- NOTE | 2019-05-20 11:05 | NUR ---
PATIENT TAKEN TO CT CHEST REPORT GIVEN TO LUCIO SANTOS. TRANSFER CARE. FAMILY INFORMED. FAMILY NOW ASKED TO WAIT OUTSIDE IN WAITING ROOM.
[2019-05-20] MEDS: NOREPINEPHRINE 8 MG/250ML KIT 250 ML IV SCH (11:29)
--- NOTE | 2019-05-20 11:36 | NUR ---
RT Transport Note: Patient transported to CT with LUCIO LONG. Patient transported to and from procedure on ventilator with previous ordered settings. Patient on potline monitor with alarms set and audible, ambu-bag/mask connected to 02 tank. Patient returned to room with no adverse reaction noted. Transport completed without incident.
--- NOTE | 2019-05-20 13:00 | NUR ---
FAMILY PATIENT'S SISTER UPDATED ON PT'S STATUS, LABS AND CURRENT POC AT THIS TIME. FAMILY REMAINS AT BEDSIDE. CONTINUE CARE.
[2019-05-20 13:57] LABS: Basophils # (auto) 0.1 10 ^3/uL (0-0.2); Basophils % (auto) 0.9 % (0.0-2.0); Eosinophils # (auto) 0 10 ^3/uL (0-0.8); Hematocrit 46.3 % (41.0-53.0); Hemoglobin 15.1 g/dL (13.5-17.5); Lymphocytes # (auto) 0.7 10 ^3/uL (0.4-5.4); Lymphocytes % (auto) 4.3 % (10.0-50.0); Mean Corpuscular Hemoglobin 28.9 pg (28.0-32.0); Mean Corpuscular Hgb Conc. 32.6 g/dL (32.0-36.0); Mean Corpuscular Volume 88.4 fL (80.0-100.0); Monocytes # (auto) 1.2 10 ^3/uL (0-1.3); Monocytes % (auto) 7.3 % (0.0-12.0); Neutrophils # (auto) 13.9 10 ^3/uL (1.6-8.6); Neutrophils % (auto) 87.5 % (37.0-80.0); Platelet Count (auto) 204 10^3/uL (140-450); Red Blood Cells 5.24 10^6/uL (4.5-5.90); Red Cell Distribution Width 16.5 % (11.8-14.3); White Blood Cell 15.9 10^3/uL (4.4-10.8)
[2019-05-20 14:06] LABS: Albumin 3.5 g/dL (3.4-5.0); BUN/Creatinine Ratio 18.9; Calcium 8.8 mg/dL (8.5-10.1); Magnesium 2.5 mg/dL (1.6-2.6); Potassium 4.6 mmol/L (3.5-5.1)
[2019-05-20 14:09] LABS: Bilirubin, Total 0.3 mg/dL (0.2-1.0); Total Protein 6.8 g/dL (6.4-8.2)
--- NOTE | 2019-05-20 15:10 | NUR ---
CALLED DR. Laith IVAN: UPDATE CALLED DR. IVAN. UPDATED HIM ON PT'S CURRENT VS, GTT'S AND POC FOR THE REST OF THE DAY. GIVEN MD CT ANGIO CHEST RESULTS AT THIS TIME. FAMILY TO BE INFORMED. CONTINUE CARE.
[2019-05-20 16:33] LABS: INR 1.07 (0.9-1.15)
--- NOTE | 2019-05-20 16:47 | NUR ---
HEPARIN GTT CHANGED PER PROTOCOL INCREASED HEPARIN GTT TO 950 UNITS/HR. WAS AT 750 UNITS/HR. VERIFIED WITH HELP FROM PHARMACY. WILL CONTINUE TO MONITOR.
--- NOTE | 2019-05-20 19:30 | NUR ---
REPORT RECEIVED, ASSUMED CARE.
--- NOTE | 2019-05-20 20:39 | NUR ---
MD SCHMIDT @ BEDSIDE SPOKE WITH FAMILY.
[2019-05-20] MEDS: ACETYLCYSTEINE 20%(200MG/ML) SOL 4ML NEB SCH (22:05)
[2019-05-20 23:24] LABS: INR 1.06 (0.9-1.15); Partial Thromboplastin Time 55.8 sec (23.64-32.05)
[2019-05-21] VITALS (102 sets, daily range): BP systolic 85–152; BP diastolic 42–93
[2019-05-21] MEDS: PROPOFOL 100 ML IV SCH ×3 (01:58→14:45)
--- NOTE | 2019-05-21 04:03 | NUR ---
STOPPED VERSED GTT FOR POSSIBLE CPAP TRIAL THIS AM.
[2019-05-21] MEDS: HEPARIN DRIP/D5W 100UNITS/ML 250 ML IV SCH ×2 (04:51→18:41)
--- NOTE | 2019-05-21 05:15 | NUR ---
WAS NOTIFIED BY HEADLINER INSTALLER @ BEDSIDE UNABLE TO DRAW FROM PT, STATED SHE WOULD SEND SOMEONE BACK FOR LAB DRAWS.
[2019-05-21] MEDS: ACETYLCYSTEINE 20%(200MG/ML) SOL 4ML NEB SCH ×3 (06:00→22:12)
--- NOTE | 2019-05-21 06:22 | NUR ---
NOTIFIED RX HYDRALAZINE NOT ON PT PYXIS PROFILE. Addendum: 05/21/19 at 0653 by Onel Marlow RN WRONG PT
--- NOTE | 2019-05-21 06:25 | NUR ---
FAMILY PT SISTER MARISOL @ BEDSIDE, GAVE THEM UPDATE.
--- NOTE | 2019-05-21 06:33 | NUR ---
FAMILY COUSIN ROSE CALLED, NO PASSWORD, EXPLAINED HE WOULD HAVE OBTAIN PASSWORD FROM FAMILY IN ORDER TO GIVE INFORMATION OUT ON PT.
--- NOTE | 2019-05-21 06:49 | NUR ---
NOTIFIED LAB, NO ONE CAME BACK FOR LAB DRAW ON TIMED LABS. SPOKE WITH STACIE, SHE STATED THEY WOULD SEND SOMEONE RIGHT AWAY.
[2019-05-21 07:33] LABS: Basophils # (auto) 0.1 10 ^3/uL (0-0.2); Basophils % (auto) 0.4 % (0.0-2.0); Eosinophils # (auto) 0 10 ^3/uL (0-0.8); Hematocrit 46.4 % (41.0-53.0); Lymphocytes # (auto) 0.7 10 ^3/uL (0.4-5.4); Lymphocytes % (auto) 3.9 % (10.0-50.0); Mean Corpuscular Hemoglobin 28.8 pg (28.0-32.0); Mean Corpuscular Hgb Conc. 32.4 g/dL (32.0-36.0); Mean Corpuscular Volume 88.9 fL (80.0-100.0); Monocytes # (auto) 1.4 10 ^3/uL (0-1.3); Monocytes % (auto) 8.3 % (0.0-12.0); Neutrophils # (auto) 14.6 10 ^3/uL (1.6-8.6); Neutrophils % (auto) 87.4 % (37.0-80.0); Nucleated Red Blood Cells % 0.2 %; Platelet Count (auto) 206 10^3/uL (140-450); Red Blood Cells 5.22 10^6/uL (4.5-5.90); Red Cell Distribution Width 16.4 % (11.8-14.3); White Blood Cell 16.7 10^3/uL (4.4-10.8)
[2019-05-21 07:51] LABS: INR 1.05 (0.9-1.15)
[2019-05-21 07:54] LABS: Partial Thromboplastin Time 84.6 sec (23.64-32.05)
--- NOTE | 2019-05-21 07:55 | NUR ---
OPENING NOTE RECEIVED REPORT FROM HAND TUBE WINDER RN AND ASSUMED CARE OF PT. PT INTUBATED AND SEDATED WITH MECHANICAL VENTILATOR. VITAL SIGNS STABLE WITH NO S/S OF DISTRESS NOTED. BED LOCKED IN LOWEST POSITION. LAZARO CATHETER IN TACT AND DRAINING TO GRAVITY. FALL AND SAFETY PRECAUTIONS IN PLACE. WILL CONTINUE TO MONITOR AND ASSESS.
[2019-05-21 07:56] LABS: Albumin 3.4 g/dL (3.4-5.0); BUN/Creatinine Ratio 20.9; Calcium 8.6 mg/dL (8.5-10.1); Potassium 4.2 mmol/L (3.5-5.1)
[2019-05-21 07:59] LABS: Bilirubin, Total 0.2 mg/dL (0.2-1.0); Total Protein 6.8 g/dL (6.4-8.2)
--- NOTE | 2019-05-21 08:00 | NUR ---
AT BEDSIDE DR. IVAN AT BEDSIDE TO ASSESS PT AND UPDATE PLAN OF CARE. NEW ORDERS RECEIVED, NOTED IN CHART.
--- NOTE | 2019-05-21 08:03 | NUR ---
HEPARIN GTT CHANGED PER PROTOCOL DECREASED HEPARIN GTT TO 750 UNITS/HR FOR APTT OF 84.6. WAS AT 950 UNITS/HR. VERIFIED WITH HELP FROM PHARMACY. WILL CONTINUE TO MONITOR.
[2019-05-21] MEDS ORDERED: VANCOMYCIN PER PHARMACY 0 MG IV SCH (08:15)
[2019-05-21] MEDS ORDERED: PIPERACILLIN-TAZOB 3.375GM 100 ML IV SCH ×2 (09:00→14:00)
--- NOTE | 2019-05-21 09:30 | NUR ---
SEDATION VACATION TURNED OFF DIPRIVAN AND LEVOPHED. VITAL SIGNS STABLE WITH NO S/S OF DISTRESS NOTED. MITTENS APPLIED TO PTS HANDS FOR SAFETY PRECAUTIONS. WILL CONTINUE TO MONITOR AND ASSESS.
--- NOTE | 2019-05-21 09:40 | NUR ---
MD CALL DR. SCHMIDT CALLED UNIT. UPDATED MD ON PLAN OF CARE AND PT CONDITION. MADE MD AWARE OF SEDATION VACATION, AND LATEST ABG RESULTS. ROXANA ORDERED TO CONTINUE WITH SEDATION VACATION AND CPAP TRIAL TODAY.
[2019-05-21] MEDS: ASPirin-EC 81 mg tab PO SCH (09:44)
[2019-05-21] MEDS: methylPREDNISolone SOD SUCC 125 MG/2 ML VL IV SCH (09:45)
[2019-05-21] MEDS: PANTOPRAZOLE 40 MG/10 ML VIAL INJ IV SCH (09:45)
[2019-05-21] MEDS ORDERED: CEFEPIME 2 GM in SODIUM CHL 0.9% 50 ML IV SCH (10:00)
--- NOTE | 2019-05-21 10:06 | NUR ---
PHARMACY CALLED PHARMACY AND MADE THEM AWARE PTS MEDICATION LOVASTATIN WAS NOT ON UNIT. UNABLE TO ADMINISTER AT THIS TIME. WILL ADMIN WHEN MED IS AVAILABLE.
[2019-05-21] MEDS: MEROPENEM 1GM IVPB 100 ML IV SCH ×2 (11:05→18:42)
[2019-05-21] MEDS: NOREPINEPHRINE 8 MG/250ML KIT 250 ML IV SCH (12:00)
--- NOTE | 2019-05-21 13:19 | NUR ---
RESTART SEDATION Sedation vacation in process, patient following commands at this time, patient noted to have increased work of breathing and respirations. Oxygenation 88%-90% - Patient nodded head "yes" when asked if he was having a arriaga time breathing. Sedation restarted per protocol. Alpesh Sanyd, will notify
--- NOTE | 2019-05-21 14:00 | NUR ---
MD CALL CALLED DR. IVAN TO UPDATE ON PT STATUS AND REQUEST MIDLINE OR PICC LINE FOR PT. RIGHT FOREARM IV NOT WORKING APPROPRIATELY AND SIGNS OF INFILTRATION ARE PRESENT. MADE MD AWARE AND RECEIVED AN ORDER TO INSERT MIDLINE.
[2019-05-21] MEDS: ALBUTEROL SULF 2.5 MG/0.5ML(0.5%) NEB SOLN NEB PRN ×3 (14:01→22:11)
[2019-05-21] MEDS: IPRATROPIUM BROM 0.5 MG/2.5ML INH SOL NEB PRN ×3 (14:01→22:12)
[2019-05-21 14:36] LABS: INR 1.03 (0.9-1.15); Partial Thromboplastin Time 29.6 sec (23.64-32.05)
--- NOTE | 2019-05-21 14:45 | NUR ---
HEPARIN GTT aPTT 29.6 - per protocol administer, 5000 unit bolus and increase by 300 units. Coordinated with alessia Dunlap. Repeat aPTT at 2100. Addendum: 05/21/19 at 1516 by Trina Calderon RN NO S/S OF BLEEDING NOTED.
[2019-05-21] MEDS: VANCOMYCIN 1GM/250ML 250 ML IV SCH (15:03)
--- NOTE | 2019-05-21 15:15 | NUR ---
PICC NURSE, CLAUDIA, AT BEDSIDE TO INSERT MIDLINE PER DR. IVAN'S ORDER.
[2019-05-21] MEDS ORDERED: HEPARIN SODIUM (PORCINE) 5000 UNITS/ML 1ML VIAL SC ONE (15:30)
[2019-05-21] MEDS ORDERED: MORPHINE SULF INJ 2 MG/ML SYRINGE 1ML IV PRN (15:30)
[2019-05-21] MEDS ORDERED: HEPARIN SODIUM (PORCINE) 5000 UNITS/ML 1ML VIAL IV ONE (16:00)
--- NOTE | 2019-05-21 16:15 | NUR ---
MIDLINE INSERTED MIDLINE 18 GAUGE INSERTED TO THE RIGHT UPPER ARM BY PICC NURSE, WELL AN 18 GAUGE TO THE UPPER LEFT ARM.
--- NOTE | 2019-05-21 16:15 | NUR ---
IV REMOVAL/INSERTION IV removal: IV RFA 20 GAUGE DC'd with clean sterile technique, catheter fully intact. Pressure dressing applied to site. Patient tolerated well. IV INSERTION: IV access obtained, via clean sterile technique by inserting 22 gauge catheter at RFA after 1 attempt. IV secured properly. No trauma to site. Patient tolerated well.
--- NOTE | 2019-05-21 16:47 | NUR ---
Midline Placement: Patients family educated on need for midline placement. All risks and benefits explained and all questions and concerns addresses prior to procedure. 18g/10cm midline inserted via right basilic vein using Ultrasound. Sterile technique utilized. Blood return obtained from lumen and flushed easily with NS using proper technique. Midline secured with saline lock; biodisc and occlusive dressing applied. Primary RN notified. Midline lot #[id number]
--- NOTE | 2019-05-21 19:17 | NUR ---
PULMONOLOGY VISITS DR SCHMIDT UPDATED ON PATIENT'S STATUS AND NEED TO INCREASE FIO2 SECONDARY TO DECREASE OXYGENATION, INCREASED WORK OF BREATHING AND PATIENT NODDING HEAD "YES" WHEN ASKED IF HE WAS HAVING A HARD TIME BREATHING. ORDERS FOR BRONCHOSCOPY RECEIVED FOR TOMORROW AM. WILL ENDORSE CONSENT AND HOSPITALIST NOTIFICATION TO RECEIVING RN.
--- NOTE | 2019-05-21 19:25 | NUR ---
EXTUBATION PATIENT SELF EXTUBATED, DR SCHMIDT AT BEDSIDE, RESPIRATORY THERAPIST AT BEDSIDE - PATIENT SUCTIONED, VITAL SIGNS STABLE, NO DISTRESS NOTED, RESPIRATIONS EVEN AND UNLABORED. PATIENT PLACED ON BIPAP PER DR SCHMIDT ORDER. ENDORSED CONTINUED CARE TO SAFETY COORDINATOR RN. BRONCHOSCOPY CANCELLED PER DR SCHMIDT.
--- NOTE | 2019-05-21 19:30 | NUR ---
Opening Shift Note Patient had an unplanned extubation and was placed on BIPAP by RT. Dr. Lundberg at bedside. Orders received. Full assessment done see interventions. Pt following commands and denies any pain at this time. Will continue to monitor closely. Call light within reach and pt verbalized understanding to call for assistance. Pelaez catheter draining to gravity and secured below bladder. Pt in full view of RN.
--- NOTE | 2019-05-21 20:30 | NUR ---
Family at bedside and updated on Pt status and POC.
--- NOTE | 2019-05-21 21:01 | NUR ---
studio technician video operator at bedside drawing PTT
[2019-05-21 22:38] LABS: INR 1.12 (0.9-1.15)
[2019-05-21 22:45] LABS: Partial Thromboplastin Time 113.6 sec (23.64-32.05)
--- NOTE | 2019-05-21 23:00 | NUR ---
HELD HEPARIN GTT, ACCORDING TO PROTOCOL.
[2019-05-22] VITALS (31 sets, daily range): BP systolic 111–144; BP diastolic 61–80
--- NOTE | 2019-05-22 | NUR ---
RESTARTED HEPARIN GTT AT 750 UNITS/HR ACCORDING TO PROTOCOL. WILL REDRAW PTT IN 6 HOURS.
[2019-05-22] MEDS: VANCOMYCIN 1GM/250ML 250 ML IV SCH (02:35)
[2019-05-22] MEDS: MEROPENEM 1GM IVPB 100 ML IV SCH ×3 (03:15→18:46)
--- NOTE | 2019-05-22 05:00 | NUR ---
CHG BATH WIPES GIVEN WITH PARTIAL LINEN CHANGE. SKIN INTEGRITY ASSESSED FOR ANY CHANGES. OPTIFOAM TO SACRUM. PT TOLERATING BIPAP ALL NIGHT.
[2019-05-22] MEDS: ACETYLCYSTEINE 20%(200MG/ML) SOL 4ML NEB SCH ×3 (06:13→22:31)
[2019-05-22] MEDS: IPRATROPIUM BROM 0.5 MG/2.5ML INH SOL NEB PRN ×3 (06:13→22:31)
[2019-05-22] MEDS: ALBUTEROL SULF 2.5 MG/0.5ML(0.5%) NEB SOLN NEB PRN ×3 (06:13→22:32)
[2019-05-22 06:45] LABS: Basophils # (auto) 0.1 10 ^3/uL (0-0.2); Basophils % (auto) 0.6 % (0.0-2.0); Eosinophils # (auto) 0 10 ^3/uL (0-0.8); Hematocrit 45.2 % (41.0-53.0); Lymphocytes # (auto) 0.7 10 ^3/uL (0.4-5.4); Lymphocytes % (auto) 5.8 % (10.0-50.0); Mean Corpuscular Hemoglobin 29.1 pg (28.0-32.0); Mean Corpuscular Hgb Conc. 33.1 g/dL (32.0-36.0); Mean Corpuscular Volume 87.8 fL (80.0-100.0); Monocytes # (auto) 1.2 10 ^3/uL (0-1.3); Neutrophils # (auto) 10.4 10 ^3/uL (1.6-8.6); Neutrophils % (auto) 83.6 % (37.0-80.0); Nucleated Red Blood Cells % 0.1 %; Platelet Count (auto) 172 10^3/uL (140-450); Red Blood Cells 5.14 10^6/uL (4.5-5.90); Red Cell Distribution Width 16.2 % (11.8-14.3); White Blood Cell 12.4 10^3/uL (4.4-10.8)
[2019-05-22 06:58] LABS: Potassium 4.1 mmol/L (3.5-5.1)
--- NOTE | 2019-05-22 06:59 | NUR ---
End of Shift Note Report given and care endorsed to day shift RN.
[2019-05-22 07:17] LABS: Albumin 3.1 g/dL (3.4-5.0); BUN/Creatinine Ratio 30.7; Bilirubin, Total 0.6 mg/dL (0.2-1.0); Calcium 8.5 mg/dL (8.5-10.1); Total Protein 6.5 g/dL (6.4-8.2)
--- NOTE | 2019-05-22 07:25 | NUR ---
Received patiet awake and alert on Bipap 14/7 FIO2 45% RR 18 SPO@ 95% HR 76 BP 137/92. AO x4, moves all extremities. Patient on Heparin for left lower extremity DVT, awaiting PTT this a.m. Pelaez catheter to gravity. Bed lowest position call light available.
[2019-05-22 07:35] LABS: INR 1.08 (0.9-1.15); Partial Thromboplastin Time 49.8 sec (23.64-32.05)
--- NOTE | 2019-05-22 08:37 | NUR ---
Pharmacy called regariding Heparin protocol infusion, Corina recommends keeping Heparin IV at 750u with new PTT at 49.8 and recheck at 1200.
--- NOTE | 2019-05-22 08:42 | NUR ---
Dr. Milligan bedside updated on status. New orders to D/C vancomyacin, D/C Heaprin IV drip, New order for Eliquis BID. Order to transfer to Tele once patient is off Bipap.
--- NOTE | 2019-05-22 08:51 | NUR ---
D/C Heparin IV per Dr. Milligan time on D/C order.
--- NOTE | 2019-05-22 09:01 | NUR ---
Patients Mother called for updated on status and plan. She will be at the hospital this afternoon. She was notified that the patient might be downgraded today. Addendum: 05/22/19 at 1122 by Vinicius Jaimes RN Wrong Patient
--- NOTE | 2019-05-22 09:05 | NUR ---
Patient was able to tolerate oral care and swallow evaluation off of BI PAP for 10 minutes at 830 and then again at 0850. Discussed plan with RT and patient was put on oximyzer at 5L. Patient tolerating the change SP2 @ 97% with no change in effort or rhythm of breathing, no change in mentation. Will continue to monitor.
--- NOTE | 2019-05-22 09:05 | NUR ---
PT WAS TAKEN OFF BIPAP AND PLACED ON 5L OXYMIZER ANT KAILEY. WELL. NO DISTRESS NOTED. SPO2 96%, HR 68, RR 18. WILL CONTINUE TO MONITOR PT.
--- NOTE | 2019-05-22 09:30 | NUR ---
Patient passed bedside swallow, on oximizer at 5L since 904, oriented and follow commands. Patient now eating breakfast and drinking oral fluids. Will continue to monitor, patient teach regarding post extubation aspiration risks and swallow deficits S/S.
--- NOTE | 2019-05-22 10:00 | NUR ---
Patient given Potassium orally 50 MEQ, recheck potassium 6hrs.
[2019-05-22] MEDS: PANTOPRAZOLE 40 MG/10 ML VIAL INJ IV SCH (10:30)
[2019-05-22] MEDS: methylPREDNISolone SOD SUCC 125 MG/2 ML VL IV SCH (10:30)
[2019-05-22] MEDS: APIXABAN 5 MG TAB PO SCH ×2 (10:31→21:53)
[2019-05-22] MEDS: ASPirin-EC 81 mg tab PO SCH (10:31)
[2019-05-22] MEDS: MIDAZOLAM DRIP 50 mg/50mL 50 ML IV SCH (11:12)
--- NOTE | 2019-05-22 11:24 | NUR ---
Patient sister Reinaldo called for update, all questions answered. She will be in this afternoon to see patient.
--- NOTE | 2019-05-22 11:50 | NUR ---
Called to give report to Kajal for transfer, she will be calling back to get report.
--- NOTE | 2019-05-22 11:52 | NUR ---
Called Corina in Pharmacy missing dose of Mevacor- she will change medication to formulary and call me back.
[2019-05-22] MEDS: ATORVASTATIN 20 MG TAB PO SCH (11:58)
[2019-05-22] MEDS: NOREPINEPHRINE 8 MG/250ML KIT 250 ML IV SCH (12:00)
--- NOTE | 2019-05-22 12:03 | NUR ---
Report given to Kajal ibarra 245A
--- NOTE | 2019-05-22 15:33 | NUR ---
RECEIVED PT TO ROOM 245A AT APPROX. 1215. A/O X 4. VSS. COOPERATIVE WITH CARES. FAMILY AT BEDSIDE. CONTINUING TO MONITOR.
--- NOTE | 2019-05-22 15:42 | NUR ---
NUTRITION ASSESSMENT NOTES Please refer to link notes of nutrition screen form filed under the intervention section of the plan of care for further details. Est. Energy Needs: 1868 - 2241kcal (25-30 kcal/kg BW). Est. Protein Needs: 75 - 90 gms/day (1.0-1.2 gms/kg BW). Will continue to monitor pertinent labs and reassess nutrient need prn Addendum: 05/22/19 at [address] Amended: Links added.
[2019-05-23 02:00] VITALS: BP 140/79
[2019-05-23] MEDS: MEROPENEM 1GM IVPB 100 ML IV SCH (02:55)
[2019-05-23 05:00] VITALS: BP 132/70
[2019-05-23 09:00] VITALS: BP 146/71
[2019-05-23] MEDS: PANTOPRAZOLE 40 MG/10 ML VIAL INJ IV SCH (09:00)
[2019-05-23] MEDS: methylPREDNISolone SOD SUCC 125 MG/2 ML VL IV SCH (09:00)
[2019-05-23] MEDS: ASPirin-EC 81 mg tab PO SCH (09:01)
[2019-05-23] MEDS: ATORVASTATIN 20 MG TAB PO SCH (09:01)
[2019-05-23] MEDS: APIXABAN 5 MG TAB PO SCH ×2 (09:22→22:21)
[2019-05-23] MEDS ORDERED: levoFLOXacin 750MG 150 ML IV SCH (10:00)
--- NOTE | 2019-05-23 10:40 | NUR ---
WOUND CARE NOTE: Wound care into see patient per wound care request regarding skin integrity issue that are noted upon assessment. Bedside nurse took photograph of patient's skin issue upon discovery for reference. Patient is 68 years old male with admitting diagnosis of Community Acquired Pneumonia, Acute Resp Failure. Patient with history of COPD, DM, hyperlipidemia, htn and previous [place]. Patient is resting in bed in Rm. 245A. Patient is awake, alert and oriented. Patient is in no stated pain at this time. He's self turning and repositioning. Patient developed 1.2x2cm open abrasion to his anterior nose bridge. Wound is red, with pink carlos wound, no drainage or odor noted. Patient reported that he rubs and scratches it when he felt irritation on skin. Cleansed patient's wound with NS moistened gauze, applied Thera honey gauze. No other wound noted, no pressure injury noted. Patient tolerated well. Bed in low position , call shepherd on hand with all safety precautions in placed. No further wound care monitoring needed at this time. RECOMMENDATION: Nursing to continue with Daily/PRN cleaning and application Thera honey gauze to nose bridge wound per MD order, redistribute pressure points with pillows, reconsult for active wound, pressure injury, low Devin score of 12 and below. Addendum: 05/23/19 at 1530 by Bonny Bose RN Amended: Links added.
[2019-05-23 13:00] VITALS: BP 141/81
--- NOTE | 2019-05-23 13:00 | NUR ---
Advised LUCIO Rdz physical therapy evaluation needed to be completed to see if patient meets criteria for home health
--- NOTE | 2019-05-23 16:02 | NUR ---
assessment Patient is a 68 year old male who is alert and oriented. Patients cognitive abilities are intact. Prior to admission patient lived home with family and functioned independently. Patient informed me he is able to care for his own ADLs. Per patient he will return home to his prior living arrangements post discharge and family will transport him home. Patient informed me he has a cane and 02 for home use. Per patient he will need a portable 02 tank delivered to bedside on discharge. Patient will need a fww on discharge. Patients home health needs to be determined after PT eval. I informed patient he has a right to speak to a social work case manager regarding all care. I informed patient he has a right to participate in any and all discharge planning. Patient has a POA and advanced directive. Patient verbalized understanding and agreed to discharge plan. Addendum: 05/23/19 at 1604 by Angela SHERWOOD Amended: Links added.
[2019-05-23 17:01] VITALS: BP 165/93
--- NOTE | 2019-05-23 19:00 | NUR ---
Opening Shift Note Assumed care of patient, awake and alert. No S/S of distress/SOB or pain. Instructed on POC and to call for assist PRN, will continue to monitor for changes Q1hr and PRN.
[2019-05-23 21:59] VITALS: BP 137/91
[2019-05-23] MEDS: ALBUTEROL SULF 2.5 MG/0.5ML(0.5%) NEB SOLN NEB PRN (22:23)
[2019-05-23] MEDS: IPRATROPIUM BROM 0.5 MG/2.5ML INH SOL NEB PRN (22:23)
--- NOTE | 2019-05-24 01:00 | NUR ---
Care endorsed to Nayana VALDES.
--- NOTE | 2019-05-24 01:00 | NUR ---
Received report from LUCIO Hill. Pt. in bed asleep. No s/s of change.
--- NOTE | 2019-05-24 02:00 | NUR ---
Pt. still sleeping, on 5 L/Oximizer continuous. HOB UP @ 30-35 Degrees Angle. Maintained a safe and quiet environment.
--- NOTE | 2019-05-24 04:00 | NUR ---
Pt. provided bedside nsg. care. Assisted with the activities daily living.
[2019-05-24 05:15] VITALS: BP 147/78
--- NOTE | 2019-05-24 08:27 | NUR ---
physical therapy notes are still Pending.
[2019-05-24 08:41] VITALS: BP 138/84
[2019-05-24] MEDS: ALBUTEROL SULF 2.5 MG/0.5ML(0.5%) NEB SOLN NEB PRN ×2 (09:31→18:37)
[2019-05-24] MEDS: IPRATROPIUM BROM 0.5 MG/2.5ML INH SOL NEB PRN (09:31)
[2019-05-24] MEDS: PANTOPRAZOLE 40 MG/10 ML VIAL INJ IV SCH (09:46)
[2019-05-24] MEDS: methylPREDNISolone SOD SUCC 125 MG/2 ML VL IV SCH (09:46)
[2019-05-24] MEDS: ASPirin-EC 81 mg tab PO SCH (09:49)
[2019-05-24] MEDS: APIXABAN 5 MG TAB PO SCH (09:50)
[2019-05-24] MEDS: ATORVASTATIN 20 MG TAB PO SCH (09:51)
[2019-05-24] MEDS ORDERED: levoFLOXacin 250 MG TAB PO SCH (10:00)
--- NOTE | 2019-05-24 11:08 | NUR ---
SPOKE WITH DR IVAN AT [facility], REPORTS TO CALL PT AND GET A NOTE FROM THEM ENTERED INTO CHART, CALL [facility] AND NOTIFY THEM PT IS DC'D, AND TO REPORT HE MAY NEED 02 FOR HOME AND TRANSPORT.
--- NOTE | 2019-05-24 11:11 | NUR ---
Called physical therapy and left message requesting note, called PBX and paged PT to room. Dr Milligan reports pt does not need 02 for home, he already has 02 at home, he just needs 02 for transport, will notify Angela.
--- NOTE | 2019-05-24 11:25 | NUR ---
MD reports to call RT and get patient transferred from Oxymizer to nasal canula, paged RT, awaiting them to come.
--- NOTE | 2019-05-24 11:33 | NUR ---
CALLED [facility] BASS, LEFT MESSAGE NOTIFYING HER PT IS DISCHARGED AND NEEDS 02 FOR TRANSPORT AND HOME HEALTH, AND THAT PT WAS PAGED AND NOTE IS STILL NEEDED.
--- NOTE | 2019-05-24 11:54 | NUR ---
PHYSICAL THERAPY REPORTS THE NOTE IS ALREADY IN AND SAMIR NOTIFIED.
--- NOTE | 2019-05-24 12:16 | NUR ---
RT REPORTS PT IS NOW ON 5L NC 02 SAT 91%.
--- NOTE | 2019-05-24 12:31 | NUR ---
SPOKE WITH SAMIR SHERWOOD, SHE REPORTS PT DOES NOT HAVE 02 AT HOME AND ABG IS NEEDED, AND PT WILL GO HOME WITH [facility]. Addendum: 05/24/19 at 1232 by MONICA CHOWDARY RN 02 ORDER HANGED FOR 5L, NOT 3.
[2019-05-24 12:39] VITALS: BP 139/77
[2019-05-24 13:00] VITALS: BP 139/77
--- NOTE | 2019-05-24 16:45 | NUR ---
PRESCRIPTION GIVEN TO SISTER AND SHE FILLED IT AT [facility].
--- NOTE | 2019-05-24 17:31 | NUR ---
D/C Planning Per consult for home health safety evaluation and physical therapy, walker and oxygen at 5l/min. Order was reviewed and approved by the medical group. Faxed orders to [facility]. Per Traci with [facility] order was received and will process the authorization to [place] and . [facility] Ph:( [phone]) and Ph:) . Per Christi with [facility] they will see patient within 24-48hrs upon d/c day. Per Rebecca with they will deliver oxygen and walker to bedside and will call the nurse at ext. [phone] for ETA. LUCIO Manning was at bedside when information was given to patient regarding home health and equipment.
--- NOTE | 2019-05-24 17:47 | NUR ---
PT REPORTS O2 WAS DELIVERED TO HIS HOUSE.
--- NOTE | 2019-05-24 18:34 | NUR ---
Oxygen and walker delivered to bedside. Patient reports he has been instructed on how to use 02 by [facility] advance seal delivery system maintainer. Pt reports he would like to eat dinner and he is about to get breathing tx, RT at bedside. Pt sister here to take him home.
--- NOTE | 2019-05-24 19:20 | NUR ---
Discharge instructions given as ordered. Encourage to follow up with PMD and Dr Lundberg as instructed. All questions and concerns addressed. Patient verbalized understanding. Medication reconciliation form completed and copy given to patient. IV removed with catheter intact, pressure dressing applied. Telemetry unit returned to ICU by night nursegamaliel. Patient taken to vehicle via wheelchair with all personal belongings, accompanied by staff and family members. No distress noted at time of departure.
== END 2019-05-24 19:30 | disposition home health service (06) | DRG 871 ==
LOC: EDBD 02:56 → ER 02:56 → TELE 02:57 → ICU WEST 12:05 → EAST 05-22 12:31 → TELE-EAST 05-22 17:53
PROVIDERS: ADMIT Hospitalist; ATTEND Family Medicine
PROC: 5A1945Z Respiratory Ventilation, 24-96 Consecutive Hours (ICD-10-PCS; principal; 2019-05-19)
PROC: 0BH17EZ Insertion of Endotracheal Airway into Trachea, Via Natural or Artificial Opening (ICD-10-PCS; 2019-05-19)
PROC: 5A09357 Assistance with Respiratory Ventilation, Less than 24 Consecutive Hours, Continuous Positive Airway Pressure (ICD-10-PCS; 2019-05-19)
PROC: 5A09357 Assistance with Respiratory Ventilation, Less than 24 Consecutive Hours, Continuous Positive Airway Pressure (ICD-10-PCS; 2019-05-21)
PROC: 5A09357 Assistance with Respiratory Ventilation, Less than 24 Consecutive Hours, Continuous Positive Airway Pressure (ICD-10-PCS; 2019-05-22)
DX: A41.9 Sepsis, unspecified organism (principal); R65.21 Severe sepsis with septic shock; G93.41 Metabolic encephalopathy; I50.43 Acute on chronic combined systolic (congestive) and diastolic (congestive) heart failure; J96.21 Acute and chronic respiratory failure with hypoxia; J18.9 Pneumonia, unspecified organism; J44.1 Chronic obstructive pulmonary disease with (acute) exacerbation; J45.901 Unspecified asthma with (acute) exacerbation; I82.403 Acute embolism and thrombosis of unspecified deep veins of lower extremity, bilateral; Z16.11 Resistance to penicillins; J44.0 Chronic obstructive pulmonary disease with (acute) lower respiratory infection; Z66 Do not resuscitate; E11.40 Type 2 diabetes mellitus with diabetic neuropathy, unspecified; B96.1 Klebsiella pneumoniae [K. pneumoniae] as the cause of diseases classified elsewhere; B96.20 Unspecified Escherichia coli [E. coli] as the cause of diseases classified elsewhere; E11.21 Type 2 diabetes mellitus with diabetic nephropathy; E78.00 Pure hypercholesterolemia, unspecified; E78.5 Hyperlipidemia, unspecified; I11.0 Hypertensive heart disease with heart failure; I25.10 Atherosclerotic heart disease of native coronary artery without angina pectoris; Z79.899 Other long term (current) drug therapy; Z80.8 Family history of malignant neoplasm of other organs or systems; Z79.01 Long term (current) use of anticoagulants; Z99.81 Dependence on supplemental oxygen; Z82.5 Family history of asthma and other chronic lower respiratory diseases; Z83.3 Family history of diabetes mellitus; I25.2 Old myocardial infarction; Z90.49 Acquired absence of other specified parts of digestive tract; Z88.0 Allergy status to penicillin
CPT/HCPCS: 31500; 36415; 36600; 51702; 71045; 71275; 80053; 81001; 82805; 82962; 83036; 83735; 83880; 84132; 84443; 84484; 85007; 85025; 85027; 85379; 85610; 85730; 87040; 87070; 87077; 87081; 87086; 87186; 87205; 87804; 93005; 93970; 94002; 94003; 94640; 94660; 96365; 96367; 96375; 96376; 97110; 97116; 97163; 97530; A4618; C9113; G0378; J0330; J0696; J1956; J2185; J2250; J2405; J2704

== ENCOUNTER → 2020-06-09 | Outpatient (CLI) | payer OTHER, MEDICAID ==
[~2020-06-09] MED LIST changes: -ASPI-404 PO; +ASPI-543 PO; -AZIT500T PO; -LORA-622 PO
[2020-06-09 09:22] LABS: Basophils # (auto) 0.2 10 ^3/uL (0-0.2); Basophils % (auto) 1.6 % (0.0-2.0); Eosinophils # (auto) 0.3 10 ^3/uL (0-0.8); Hematocrit 49.2 % (41.0-53.0); Hemoglobin 16.2 g/dL (13.5-17.5); Lymphocytes % (auto) 19.3 % (10.0-50.0); Mean Corpuscular Hemoglobin 28.9 pg (28.0-32.0); Mean Corpuscular Hgb Conc. 32.9 g/dL (32.0-36.0); Mean Corpuscular Volume 87.9 fL (80.0-100.0); Monocytes # (auto) 0.7 10 ^3/uL (0-1.3); Neutrophils # (auto) 7.2 10 ^3/uL (1.6-8.6); Neutrophils % (auto) 69.1 % (37.0-80.0); Nucleated Red Blood Cells % 0.1 %; Platelet Count (auto) 227 10^3/uL (140-450); Red Cell Distribution Width 16.3 % (11.8-14.3); White Blood Cell 10.4 10^3/uL (4.4-10.8)
[2020-06-09 09:31] LABS: Urine Bacteria NONE SEEN /hpf (None Seen); Urine Blood Negative /uL (Negative); Urine WBC <1 /hpf (0 - 3)
[2020-06-09 09:55] LABS: Potassium 4.5 mmol/L (3.5-5.1)
[2020-06-09 09:58] LABS: Free T4 (Free Thyroxine) 0.94 ng/dL (0.89-1.76); Prostate Specific Antigen 1.24 ng/mL (0.0-4.0)
[2020-06-09 10:10] LABS: Albumin 3.9 g/dL (3.4-5.0); BUN/Creatinine Ratio 17.8; Bilirubin, Total 0.4 mg/dL (0.2-1.0); Calcium 9.1 mg/dL (8.5-10.1); Total Protein 7.8 g/dL (6.4-8.2)
== END | disposition home or self-care (01) ==
LOC: LAB 08:25
PROVIDERS: ATTEND Internal Medicine
DX: E11.9 Type 2 diabetes mellitus without complications (principal); J44.9 Chronic obstructive pulmonary disease, unspecified
CPT/HCPCS: 36415; 80053; 80061; 81001; 82043; 82607; 83036; 84153; 84439; 84443; 85025; 85652

== ENCOUNTER → 2021-06-01 | Outpatient (CLI) | payer OTHER ==
[~2021-06-01] MED LIST changes: +MONT-8 PO; -MONT10TA34 PO
[2021-06-01 10:33] LABS: Albumin 3.7 g/dL (3.4-5.0); Calcium 8.6 mg/dL (8.5-10.1); Potassium 4.2 mmol/L (3.5-5.1)
[2021-06-01 10:36] LABS: BUN/Creatinine Ratio 17.7; Bilirubin, Total 0.4 mg/dL (0.2-1.0); Total Protein 7.2 g/dL (6.4-8.2)
== END | disposition home or self-care (01) ==
LOC: LAB 08:29
PROVIDERS: ATTEND Internal Medicine
DX: E11.9 Type 2 diabetes mellitus without complications (principal); I10 Essential (primary) hypertension
CPT/HCPCS: 36415; 80053; 83036

== ENCOUNTER → 2021-10-20 | Outpatient (CLI) | payer OTHER, MEDICAID | END | disposition home or self-care (01) | LOC: RT 10:52 | PROVIDERS: ATTEND Internal Medicine Pulmonary Disease | DX: Z01.818 Encounter for other preprocedural examination (principal); R06.00 Dyspnea, unspecified | CPT/HCPCS: 94060 ==

== ENCOUNTER → 2021-11-01 | Outpatient (CLI) | payer OTHER, MEDICAID | END | disposition home or self-care (01) | LOC: XYW 09:26 | PROVIDERS: ATTEND Internal Medicine | DX: I31.3 Pericardial effusion (noninflammatory) (principal); Z01.810 Encounter for preprocedural cardiovascular examination | CPT/HCPCS: 93306 ==

== ENCOUNTER → 2021-11-18 | Outpatient (CLI) | payer OTHER, MEDICAID ==
[~2021-11-18] VITALS: Ht 160 cm; Wt 79.4 kg
[~2021-11-18] MED LIST changes: +ADENOSINE 67 MG in GIVE UN-DILUTED 0 ML IV ONE
== END | disposition home or self-care (01) ==
LOC: XYW 07:59
PROVIDERS: ATTEND Internal Medicine
DX: Z01.810 Encounter for preprocedural cardiovascular examination (principal); I10 Essential (primary) hypertension
CPT/HCPCS: 93017; J0153

== ENCOUNTER → 2021-12-01 | Outpatient (CLI) | payer OTHER, MEDICAID ==
[~2021-12-01] MED LIST changes: -ADENOSINE 67 MG in GIVE UN-DILUTED 0 ML IV ONE
[2021-12-01 08:34] LABS: Basophils # (auto) 0.1 10 ^3/uL (0-0.2); Basophils % (auto) 0.9 % (0.0-2.0); Eosinophils # (auto) 0.7 10 ^3/uL (0-0.8); Eosinophils % (auto) 6.2 % (0.0-7.0); Hematocrit 49.8 % (41.0-53.0); Hemoglobin 15.7 g/dL (13.5-17.5); Lymphocytes # (auto) 2.6 10 ^3/uL (0.4-5.4); Lymphocytes % (auto) 24.1 % (10.0-50.0); Mean Corpuscular Hgb Conc. 31.5 g/dL (32.0-36.0); Mean Corpuscular Volume 88.9 fL (80.0-100.0); Monocytes # (auto) 0.7 10 ^3/uL (0-1.3); Monocytes % (auto) 6.8 % (0.0-12.0); Neutrophils # (auto) 6.6 10 ^3/uL (1.6-8.6); Red Cell Distribution Width 15.9 % (11.8-14.3); White Blood Cell 10.7 10^3/uL (4.4-10.8)
[2021-12-01 08:59] LABS: Urine Bacteria NONE SEEN /hpf (None Seen); Urine Blood Negative /uL (Negative); Urine Specific Gravity 1.025 (1.001-1.035); Urine WBC 1 /hpf (0 - 3)
[2021-12-01 09:15] LABS: Potassium 4.2 mmol/L (3.5-5.1)
[2021-12-01 09:23] LABS: Albumin 3.8 g/dL (3.4-5.0); BUN/Creatinine Ratio 16.5; Bilirubin, Total 0.4 mg/dL (0.2-1.0); Calcium 8.7 mg/dL (8.5-10.1); Total Protein 6.8 g/dL (6.4-8.2)
[2021-12-01 09:36] LABS: Micro Albumin 32.8 mg/L (0-30.0)
== END | disposition home or self-care (01) ==
LOC: LAB 08:01
PROVIDERS: ATTEND Internal Medicine
DX: E11.21 Type 2 diabetes mellitus with diabetic nephropathy (principal); J44.9 Chronic obstructive pulmonary disease, unspecified
CPT/HCPCS: 36415; 80053; 80061; 81001; 82043; 82570; 82607; 83036; 84153; 84439; 84443; 85025; 85652

== ENCOUNTER → 2021-12-15 | Outpatient (CLI) | payer OTHER, MEDICAID | END | disposition home or self-care (01) | LOC: LAB 08:23 | PROVIDERS: ATTEND Internal Medicine | DX: Z12.11 Encounter for screening for malignant neoplasm of colon (principal) | CPT/HCPCS: 82270 ==

== ENCOUNTER → 2022-06-01 | Outpatient (CLI) | payer OTHER, MEDICAID ==
[2022-06-01 08:52] LABS: Basophils # (auto) 0.1 10 ^3/uL (0-0.2); Basophils % (auto) 0.9 % (0.0-2.0); Eosinophils # (auto) 0.8 10 ^3/uL (0-0.8); Eosinophils % (auto) 6.3 % (0.0-7.0); Hematocrit 48.5 % (41.0-53.0); Hemoglobin 15.7 g/dL (13.5-17.5); Lymphocytes # (auto) 2.4 10 ^3/uL (0.4-5.4); Lymphocytes % (auto) 19.5 % (10.0-50.0); Mean Corpuscular Hgb Conc. 32.5 g/dL (32.0-36.0); Mean Corpuscular Volume 89.4 fL (80.0-100.0); Monocytes # (auto) 0.8 10 ^3/uL (0-1.3); Monocytes % (auto) 6.1 % (0.0-12.0); Neutrophils # (auto) 8.4 10 ^3/uL (1.6-8.6); Neutrophils % (auto) 67.2 % (37.0-80.0); Nucleated Red Blood Cells % 0.2 %; Red Blood Cells 5.42 10^6/uL (4.5-5.90); Red Cell Distribution Width 15.9 % (11.8-14.3); White Blood Cell 12.5 10^3/uL (4.4-10.8)
[2022-06-01 10:07] LABS: Albumin 3.7 g/dL (3.4-5.0); BUN/Creatinine Ratio 17.2; Calcium 8.9 mg/dL (8.5-10.1); Potassium 4.5 mmol/L (3.5-5.1)
[2022-06-01 10:14] LABS: Bilirubin, Total 0.4 mg/dL (0.2-1.0); Total Protein 7.4 g/dL (6.4-8.2)
== END | disposition home or self-care (01) ==
LOC: LAB 08:33
PROVIDERS: ATTEND Internal Medicine
DX: I10 Essential (primary) hypertension (principal); E11.9 Type 2 diabetes mellitus without complications
CPT/HCPCS: 36415; 80053; 80061; 83036; 85025

== ENCOUNTER → 2023-06-09 | Outpatient (CLI) | payer OTHER ==
[2023-06-09 11:51] LABS: Basophils # (auto) 0.1 10 ^3/uL (0-0.2); Basophils % (auto) 0.8 % (0.0-2.0); Eosinophils # (auto) 0.4 10 ^3/uL (0-0.8); Eosinophils % (auto) 3.3 % (0.0-7.0); Hematocrit 47.2 % (41.0-53.0); Hemoglobin 15.5 g/dL (13.5-17.5); Lymphocytes # (auto) 1.8 10 ^3/uL (0.4-5.4); Lymphocytes % (auto) 16.1 % (10.0-50.0); Mean Corpuscular Hemoglobin 29.1 pg (28.0-32.0); Mean Corpuscular Hgb Conc. 32.8 g/dL (32.0-36.0); Mean Corpuscular Volume 88.5 fL (80.0-100.0); Monocytes # (auto) 0.6 10 ^3/uL (0-1.3); Neutrophils # (auto) 8.4 10 ^3/uL (1.6-8.6); Neutrophils % (auto) 74.8 % (37.0-80.0); Red Blood Cells 5.34 10^6/uL (4.5-5.90); Red Cell Distribution Width 15.8 % (11.8-14.3); White Blood Cell 11.2 10^3/uL (4.4-10.8)
[2023-06-09 12:13] LABS: Alanine Aminotransferase 33 U/L (7-40); Albumin 4.5 g/dL (3.2-4.8); Alkaline Phosphatase 48 U/L (46-116); Anion Gap 6 (5-15); Aspartate Aminotransferase 24 U/L (13-40); BUN/Creatinine Ratio 11.7 (10.0-20.0); Blood Urea Nitrogen 13 mg/dL (9-23); Calcium 9.6 mg/dL (8.5-10.1); Carbon Dioxide 29 mmol/L (20-30); Chloride 106 mmol/L (98-107); Glucose 168 mg/dL (74-106); Potassium 4.5 mmol/L (3.5-5.1); Sodium 141 mmol/L (136-145)
[2023-06-09 12:14] LABS: Bilirubin, Total 0.4 mg/dL (0.2-1.0); Total Protein 7.1 g/dL (5.7-8.2)
== END | disposition home or self-care (01) ==
LOC: LAB 11:34
PROVIDERS: ATTEND Internal Medicine
DX: E11.9 Type 2 diabetes mellitus without complications (principal); I10 Essential (primary) hypertension; J44.9 Chronic obstructive pulmonary disease, unspecified
CPT/HCPCS: 36415; 80053; 83036; 85025

== ENCOUNTER 2023-10-29 04:31 | Inpatient (IN) | payer OTHER, MEDICAID ==
[2023-10-29] VITALS (15 sets, daily range): BP systolic 129–141; BP diastolic 62–67; PULSE 78–100; RESP 17–20; TEMP 98.6; O2SAT 2–98
[~2023-10-29] VITALS: Ht 162.6 cm; Wt 76.9 kg
[~2023-10-29 04:31] MED LIST changes: -FLUT1AER3; +FLUT1AER3 PO
[2023-10-29 05:28] LABS: Basophils # (auto) 0.1 10 ^3/uL (0-0.2); Basophils % (auto) 0.5 % (0.0-2.0); Eosinophils # (auto) 0.3 10 ^3/uL (0-0.8); Eosinophils % (auto) 2.2 % (0.0-7.0); Hematocrit 47.9 % (41.0-53.0); Hemoglobin 15.5 g/dL (13.5-17.5); Lymphocytes # (auto) 2.1 10 ^3/uL (0.4-5.4); Lymphocytes % (auto) 16.5 % (10.0-50.0); Mean Corpuscular Hemoglobin 29.1 pg (28.0-32.0); Mean Corpuscular Hgb Conc. 32.4 g/dL (32.0-36.0); Mean Corpuscular Volume 89.8 fL (80.0-100.0); Monocytes % (auto) 7.6 % (0.0-12.0); Neutrophils # (auto) 9.5 10 ^3/uL (1.6-8.6); Neutrophils % (auto) 73.2 % (37.0-80.0); Nucleated Red Blood Cells % 0.2 %; Red Blood Cells 5.33 10^6/uL (4.5-5.90); Red Cell Distribution Width 15.9 % (11.8-14.3)
[2023-10-29 05:38] LABS: Chloride 110 mmol/L (98-107); Potassium 4.2 mmol/L (3.5-5.1); Sodium 144 mmol/L (136-145)
[2023-10-29 05:39] LABS: Anion Gap 6 (5-15); Carbon Dioxide 28 mmol/L (20-30)
[2023-10-29 05:40] LABS: Calcium 9.9 mg/dL (8.7-10.4)
[2023-10-29 05:44] LABS: BUN/Creatinine Ratio 14.6 (10.0-20.0); Blood Urea Nitrogen 13 mg/dL (9-23); Glucose 148 mg/dL (74-106)
[2023-10-29] MEDS: methylPREDNISolone SOD SUCC 125 MG/2 ML VL IV ONE (08:00)
[2023-10-29] MEDS: ALBUTEROL SULF 2.5 MG/0.5ML(0.5%) NEB SOLN NEB ONE (08:19)
[2023-10-29] MEDS: IPRATROPIUM BROM 0.5 MG/2.5ML INH SOL NEB ONE (08:19)
[2023-10-29 08:31] LABS: COVID19 ANTIGEN SOFIA FIA NEGATIVE (NEGATIVE)
[2023-10-29] MEDS ORDERED: MORPHINE SULFATE INJ 2 MG/ml SYRG IV PRN (09:45)
[2023-10-29] MEDS ORDERED: NITROGLYCERIN 0.4 MG SL TAB SL PRN (09:45)
[2023-10-29] MEDS ORDERED: ACETAMINOPHEN 325 MG TAB PO PRN (09:45)
[2023-10-29] MEDS ORDERED: ALBUTEROL SULF 2.5 MG/0.5ML(0.5%) NEB SOLN NEB PRN (09:45)
[2023-10-29] MEDS: methylPREDNISolone SOD SUCC 40 MG/ML VL IV SCH (10:00)
[2023-10-29] MEDS: ALBUTEROL SULF 2.5 MG/0.5ML(0.5%) NEB SOLN NEB SCH (10:17)
[2023-10-29] MEDS: IPRATROPIUM BROM 0.5 MG/2.5ML INH SOL NEB SCH (10:17)
[2023-10-29] MEDS: cefTRIAXone 1GM/50ML D5W 50 ML IV ONE (10:36)
[2023-10-29] MEDS: ENOXAPARIN SOD 40 MG/0.4 ML SYRINGE SC SCH (10:42)
[2023-10-29] MEDS: MONTELUKAST SODIUM 10 MG TAB PO SCH (10:43)
[2023-10-29] MEDS: ASPirin-EC 81 mg tab PO SCH (10:43)
[2023-10-29] MEDS ORDERED: DEXTROSE (50%) 50ML SYRG IV PRN (10:45)
[2023-10-29] MEDS: SODIUM CHLORIDE 0.9% 1,000 ML IV SCH (10:47)
[2023-10-29 10:56] LABS: Triglycerides 143 mg/dL (< 150)
[2023-10-29 10:57] LABS: LDL Cholesterol 93 mg/dL (< 100)
[2023-10-29 10:58] LABS: Cholesterol 156 mg/dL (< 200); HDL Cholesterol 43 mg/dL (40-59)
[2023-10-29] MEDS: AZITHROMYCIN 500MG/ 250ML 250 ML IV ONE (11:09)
[2023-10-29 11:37] LABS: Rapid Influenza A Negative (Negative); Rapid Influenza B Negative (Negative)
[2023-10-29] MEDS: InsuLIN REG 1unit/0.01ml Soln (100units/ml) SC SCH (11:38)
[2023-10-29] MEDS: ACCU-CHEK COMFORT CURVE STRIP VI SCH (11:38)
[2023-10-29] MEDS: IOHEXOL 350 MG/ML 100ML IJ ONE (12:03)
[2023-10-29] MEDS: amLODIPine BESYLATE 5 MG TAB PO ONE (14:47)
[2023-10-29] MEDS: PRAVASTATIN SODIUM 20 MG TAB PO SCH (21:44)
[2023-10-30] VITALS (20 sets, daily range): BP systolic 115–138; BP diastolic 57–71; PULSE 74–95; RESP 16–22; TEMP 97.7–98.4; O2SAT 92–99
[2023-10-30 07:00] LABS: Basophils # (auto) 0 10 ^3/uL (0-0.2); Basophils % (auto) 0.2 % (0.0-2.0); Eosinophils # (auto) 0 10 ^3/uL (0-0.8); Hematocrit 46.1 % (41.0-53.0); Lymphocytes # (auto) 0.7 10 ^3/uL (0.4-5.4); Lymphocytes % (auto) 5.3 % (10.0-50.0); Mean Corpuscular Hemoglobin 29.4 pg (28.0-32.0); Mean Corpuscular Hgb Conc. 32.5 g/dL (32.0-36.0); Mean Corpuscular Volume 90.3 fL (80.0-100.0); Monocytes # (auto) 0.3 10 ^3/uL (0-1.3); Monocytes % (auto) 2.5 % (0.0-12.0); Neutrophils # (auto) 12.6 10 ^3/uL (1.6-8.6); Red Blood Cells 5.11 10^6/uL (4.5-5.90); Red Cell Distribution Width 15.8 % (11.8-14.3); White Blood Cell 13.7 10^3/uL (4.4-10.8)
[2023-10-30 07:29] LABS: Alanine Aminotransferase 26 U/L (7-40); Albumin 3.9 g/dL (3.2-4.8); Alkaline Phosphatase 47 U/L (46-116); Anion Gap 12 (5-15); Aspartate Aminotransferase 16 U/L (13-40); BUN/Creatinine Ratio 13.7 (10.0-20.0); Bilirubin, Total 0.3 mg/dL (0.2-1.0); Blood Urea Nitrogen 10 mg/dL (9-23); Calcium 9.3 mg/dL (8.7-10.4); Carbon Dioxide 20 mmol/L (20-30); Chloride 107 mmol/L (98-107); Glucose 218 mg/dL (74-106); Potassium 4.2 mmol/L (3.5-5.1); Sodium 139 mmol/L (136-145); Total Protein 6.2 g/dL (5.7-8.2)
[2023-10-30] MEDS: amLODIPine BESYLATE 5 MG TAB PO SCH (09:34)
[2023-10-30] MEDS: AZITHROMYCIN 500MG/ 250ML 250 ML IV SCH (09:35)
[2023-10-30] MEDS: cefTRIAXone 1GM/50ML D5W 50 ML IV SCH (09:35)
[2023-10-30] MEDS ORDERED: PRE5T PO (12:15)
[2023-10-30] MEDS ORDERED: ALBU108A5 INH (12:15)
[2023-10-30] MEDS ORDERED: PRAV20TA3 PO (12:15)
[2023-10-30] MEDS ORDERED: LORA-622 PO (12:15)
[2023-10-30] MEDS ORDERED: HYDR-4795 PO (12:15)
[2023-10-30] MEDS ORDERED: APIX2.5T PO (12:15)
[2023-10-31] VITALS (19 sets, daily range): BP systolic 105–129; BP diastolic 48–76; PULSE 70–90; RESP 16–20; TEMP 97.6–99; O2SAT 92–98
[2023-10-31 07:22] LABS: Basophils # (auto) 0 10 ^3/uL (0-0.2); Basophils % (auto) 0.2 % (0.0-2.0); Eosinophils # (auto) 0 10 ^3/uL (0-0.8); Eosinophils % (auto) 0.1 % (0.0-7.0); Hematocrit 46.4 % (41.0-53.0); Hemoglobin 15.4 g/dL (13.5-17.5); Lymphocytes # (auto) 1.5 10 ^3/uL (0.4-5.4); Lymphocytes % (auto) 9.5 % (10.0-50.0); Mean Corpuscular Hemoglobin 29.7 pg (28.0-32.0); Mean Corpuscular Hgb Conc. 33.1 g/dL (32.0-36.0); Mean Corpuscular Volume 89.5 fL (80.0-100.0); Monocytes # (auto) 1.1 10 ^3/uL (0-1.3); Neutrophils # (auto) 12.7 10 ^3/uL (1.6-8.6); Neutrophils % (auto) 83.2 % (37.0-80.0); Red Blood Cells 5.18 10^6/uL (4.5-5.90); Red Cell Distribution Width 15.5 % (11.8-14.3); White Blood Cell 15.3 10^3/uL (4.4-10.8)
[2023-10-31 07:30] LABS: Anion Gap 6 (5-15); Carbon Dioxide 27 mmol/L (20-30); Chloride 109 mmol/L (98-107); Potassium 4.3 mmol/L (3.5-5.1); Sodium 142 mmol/L (136-145)
[2023-10-31 07:31] LABS: Calcium 9.6 mg/dL (8.7-10.4)
[2023-10-31 07:36] LABS: BUN/Creatinine Ratio 17.7 (10.0-20.0); Blood Urea Nitrogen 14 mg/dL (9-23); Glucose 143 mg/dL (74-106)
[2023-10-31 13:57] LABS: Urine Bacteria FEW /hpf (None Seen); Urine Blood Negative /uL (Negative); Urine Clarity Clear (Clear); Urine Color Light-Yellow (Yellow); Urine Protein, UAD Negative (Negative); Urine Specific Gravity 1.016 (1.001-1.035); Urine Urobilinogen Normal (Negative); Urine WBC <1 /hpf (0 - 3)
[2023-10-31] MEDS: ERGOCALCIFEROL 50,000 UNIT(1.25MG) CAP PO SCH (20:00)
[2023-11-01] VITALS (15 sets, daily range): BP systolic 118–130; BP diastolic 66–77; PULSE 77–91; RESP 17–20; TEMP 97.9–98.1; O2SAT 93–99
[2023-11-01 06:07] LABS: Basophils # (auto) 0 10 ^3/uL (0-0.2); Basophils % (auto) 0.1 % (0.0-2.0); Eosinophils # (auto) 0 10 ^3/uL (0-0.8); Hematocrit 48.1 % (41.0-53.0); Hemoglobin 15.7 g/dL (13.5-17.5); Lymphocytes # (auto) 0.6 10 ^3/uL (0.4-5.4); Lymphocytes % (auto) 4.7 % (10.0-50.0); Mean Corpuscular Hemoglobin 29.4 pg (28.0-32.0); Mean Corpuscular Hgb Conc. 32.6 g/dL (32.0-36.0); Mean Corpuscular Volume 90.2 fL (80.0-100.0); Monocytes # (auto) 0.3 10 ^3/uL (0-1.3); Monocytes % (auto) 2.5 % (0.0-12.0); Neutrophils # (auto) 12.4 10 ^3/uL (1.6-8.6); Neutrophils % (auto) 92.7 % (37.0-80.0); Nucleated Red Blood Cells % 0.1 %; Red Blood Cells 5.33 10^6/uL (4.5-5.90); Red Cell Distribution Width 15.8 % (11.8-14.3); White Blood Cell 13.4 10^3/uL (4.4-10.8)
[2023-11-01 06:16] LABS: Anion Gap 8 (5-15); Carbon Dioxide 26 mmol/L (20-30); Chloride 106 mmol/L (98-107); Potassium 4.5 mmol/L (3.5-5.1); Sodium 140 mmol/L (136-145)
[2023-11-01 06:17] LABS: Calcium 9.7 mg/dL (8.7-10.4)
[2023-11-01 06:22] LABS: BUN/Creatinine Ratio 18.3 (10.0-20.0); Blood Urea Nitrogen 15 mg/dL (9-23); Glucose 178 mg/dL (74-106)
[2023-11-01] MEDS: REGADENOSON 0.4 MG/5 ML SYRG IV ONE ×2 (07:45→08:45)
[2023-11-01] MEDS ORDERED: FLUT1AER3 IN (11:10)
[2023-11-01] MEDS ORDERED: AZIT-74 PO (14:06)
[2023-11-01] MEDS ORDERED: ALBUAER3 IN (14:06)
[2023-11-01] MEDS ORDERED: PRED20TA2 PO (14:06)
== END 2023-11-01 17:55 | disposition home or self-care (01) | DRG 189 ==
LOC: ER 04:31 → EDBD 04:31 → TELE 09:50 → TELE-WESTW 18:33 → WEST WING 11-01 07:15
PROVIDERS: ADMIT Internal Medicine; ATTEND Internal Medicine
DX: J96.21 Acute and chronic respiratory failure with hypoxia (principal); J18.9 Pneumonia, unspecified organism; I21.A1 Myocardial infarction type 2; J44.1 Chronic obstructive pulmonary disease with (acute) exacerbation; J98.11 Atelectasis; J44.0 Chronic obstructive pulmonary disease with (acute) lower respiratory infection; D72.829 Elevated white blood cell count, unspecified; E66.01 Morbid (severe) obesity due to excess calories; E78.5 Hyperlipidemia, unspecified; Z20.822 Contact with and (suspected) exposure to COVID-19; E11.9 Type 2 diabetes mellitus without complications; I11.9 Hypertensive heart disease without heart failure; F17.210 Nicotine dependence, cigarettes, uncomplicated; Z90.49 Acquired absence of other specified parts of digestive tract; Z79.899 Other long term (current) drug therapy; Z86.718 Personal history of other venous thrombosis and embolism; Z99.81 Dependence on supplemental oxygen; Z88.0 Allergy status to penicillin; Z80.8 Family history of malignant neoplasm of other organs or systems; Z82.5 Family history of asthma and other chronic lower respiratory diseases; Z83.3 Family history of diabetes mellitus; Z68.29 Body mass index [BMI] 29.0-29.9, adult
CPT/HCPCS: 36415; 71045; 71275; 78452; 80048; 80053; 80061; 81001; 82306; 82607; 82962; 83036; 83880; 84443; 84484; 85025; 85379; 87040; 87070; 87077; 87186; 87205; 87426; 87804; 93005; 93017; 93306; 94640; 97163; 99291; G0378; J1815

== ENCOUNTER → 2024-01-02 | Outpatient (CLI) | payer OTHER ==
[~2024-01-02] MED LIST changes: +ALBU108A5 INH; +ALBUAER3 IN; +APIX2.5T PO; +AZIT-74 PO; +FLUT1AER3 IN; +HYDR-4795 PO; -IPRA0.00 IN; +LORA-622 PO; -LOVA20TA4 PO; +PRAV20TA3 PO; +PRE5T PO; +PRED20TA2 PO; -Proair
[2024-01-02 13:22] LABS: Creatinine, Urine 209.55 mg/dL (30.0-125.0)
== END | disposition home or self-care (01) ==
LOC: LAB 12:29
PROVIDERS: ATTEND Internal Medicine
DX: E11.40 Type 2 diabetes mellitus with diabetic neuropathy, unspecified (principal)
CPT/HCPCS: 36415; 82043; 82570

== ENCOUNTER 2024-03-26 16:14 | Inpatient (IN) | payer OTHER, MEDICAID ==
[~2024-03-26] VITALS: Ht 160 cm; Wt 75.2 kg
[2024-03-26] MEDS ORDERED: IPRATROPIUM BROM 0.5 MG/2.5ML INH SOL NEB ONE (16:30)
[2024-03-26] MEDS ORDERED: ALBUTEROL SULF 2.5 MG/0.5ML(0.5%) NEB SOLN NEB ONE (16:30)
--- NOTE | 2024-03-26 17:02 | ED.PDOC ---
SOB-HPI HPI Comments HPI: Poor Historian. 73-year-old male brought in by ambulance from home for evaluation of three day history of shortness of breath. Patient has history of COPD not on oxygen at home. Pulse ox at home was 88% on room air. They gave him DuoNeb treatment prior to arrival. His pulse ox improved to 96% at 4 L nasal cannula either. Patient still appears somewhat tachypneic. Denies any other associated symptoms. Past Medcial History: Diabetes, hypertension, hyperlipidemia, COPD Past Surgical History: Hernia repair, REVIEW OF SYSTEMS: CONSTITUTIONAL: Denies acute: fever, diaphoresis, chills, generalized weakness. HEAD: Denies acute: headache, photophobia Eyes: Denies acute: Double vision, vision loss, eye pain, eye discharge. EARS: Denies acute: tinnitus, hearing loss, ear discharge, ear pain, THROAT: Denies acute: sore throat, swelling, difficulty swallowing , pain with swallowing, change in voice. NECK: Denies acute: neck pain, neck swelling, stiff neck. HEART: Denies acute : chest pain, palpitations, LUNGS: Denies acute: cough, hemoptysis ABDOMEN: Denies acute: abdominal pain, Nausea, Vomiting, diarrhea, melena , hematemesis, hematochezia SKIN: Denies acute: rash, redness, lesions, itchiness. EXTREMITIES: Denies acute: calf pain, numbness, tingling, weakness, denies pain in extremity. Denies acute: Low back pain. Neuro: Denies acute: focal neurological deficit, motor or sensory focal neurological deficit, tremors, seizure like activity, confusion, dizziness, change in mental status, loss of bowel or bladder function, cauda equina like symptoms. : Denies acute: dysuria, hematuria, flank pain, increase in urinary frequency. PSYCH: Denies acute: hallucination, suicidal ideation, homicidal ideation. PHYSICAL EXAM: General: Mild to moderate acute distress, awake and alert. Head: normocephalic, atraumatic. Neck: supple, trachea is midline, no swelling. Throat: Normal phonation. Eyes:, no erythema, no purulent discharge, no proptosis, no icterus. Heart: regular tachycardic, no significant murmur appreciated. Lungs: Mild to moderate apparent respiratory distress, Mild wheezing, no rhonchi, no crackles. No stridors Abdomen: non tender to palpation, non distended, soft, no guarding, no rebound, + bowel sounds. Noted umbilical hernia Neuro: Awake, Alert, oriented to name, self, situation, follows commands GCS=15. Speech is normal. Skin: no petechia, no purpura, no cyanosis, non-pale, not jaundice. Lower extremities: --no - Pitting edema no deformity, no focal swelling, no calf TTP. Makes eye contact. moves all four extremities. Face: no apparent facial droop. Chief Complaint: Shortness of Breath Time Seen by MD: 16:25 Primary Care Provider: [place] Reviewed notes: Nurses Notes, Allergies Information Source: Patient, Emergency Med Personnel Past Medical History PAST MEDICAL HISTORY: COPD, DM, High Lipids, HTN, [place] Surgical History: Cholecystectomy, Hernia Repair Family History Family History: Reviewed,noncontributory to illness Social History Smoker: Cigarettes Alcohol: Denies ETOH Use Drugs: Denies Drug Use Lives In: Home X-Ray, Labs, Meds, VS Vital Signs Date Time Temp Pulse Resp B/P (MAP) Pulse Ox O2 Delivery O2 Flow Rate FiO2 03/26/24 16:51 95 Nasal Cannula* 6 44 03/26/24 16:51 96 Nasal Cannula* 6 44 03/26/24 16:29 112 03/26/24 16:14 97.8 110 22 154/89 (110) 97 03/26/24 16:14 Nasal Cannula* 4 36 Lab Test 03/26/24 16:56 Range/Units White Blood Count 12.6 H 4.4-10.8 10^3/uL Red Blood Count 5.34 4.5-5.90 10^6/uL Hemoglobin 15.8 13.5-17.5 g/dL Hematocrit 48.3 41.0-53.0 % Mean Corpuscular Volume 90.6 80.0-100.0 fL Mean Corpuscular Hemoglobin 29.6 28.0-32.0 pg Mean Corpuscular Hemoglobin Concent 32.7 32.0-36.0 g/dL Red Cell Distribution Width 15.5 H 11.8-14.3 % Platelet Count 221 140-450 10^3/uL Mean Platelet Volume 6.8 L 6.9-10.8 fL Neutrophils (%) (Auto) 83.2 H 37.0-80.0 % Lymphocytes (%) (Auto) 8.0 L 10.0-50.0 % Monocytes (%) (Auto) 8.2 0.0-12.0 % Eosinophils (%) (Auto) 0.3 0.0-7.0 % Basophils (%) (Auto) 0.3 0.0-2.0 % Neutrophils # (Auto) 10.5 H 1.6-8.6 10 ^3/uL Lymphocytes # (Auto) 1.0 0.4-5.4 10 ^3/uL Monocytes # (Auto) 1.0 0-1.3 10 ^3/uL Eosinophils # (Auto) 0 0-0.8 10 ^3/uL Basophils # (Auto) 0 0-0.2 10 ^3/uL Nucleated Red Blood Cells 0.0 % Sodium Level 140 136-145 mmol/L Potassium Level 4.6 3.5-5.1 mmol/L Chloride Level 104 98-107 mmol/L Carbon Dioxide Level 26 20-31 mmol/L Anion Gap 10 5-15 Blood Urea Nitrogen 15 9-23 mg/dL Creatinine 0.82 0.700-1.30 mg/dL Glomerular Filtration Rate Calc 92 >90 mL/min BUN/Creatinine Ratio 18.3 10.0-20.0 Serum Glucose 150 H 74-106 mg/dL Lactic Acid Level 2.5 *H 0.4-2.0 mmol/L Calcium Level 9.9 8.7-10.4 mg/dL Magnesium Level 2.0 1.6-2.6 mg/dL Total Bilirubin 0.2 0.2-1.0 mg/dL Aspartate Amino Transferase (AST) 18 13-40 U/L Alanine Aminotransferase (ALT) 28 7-40 U/L Alkaline Phosphatase 61 46-116 U/L Troponin I High Sensitivity Pending B-Type Natriuretic Peptide 68.84 0-100 pg/mL Total Protein 6.5 5.7-8.2 g/dL Albumin 4.3 3.2-4.8 g/dL Departure 1 Departure Time of Disposition: 17:40 Impression: Primary Impression: COPD exacerbation Disposition: ADMITTED INPATIENT Condition: Guarded Discharged With: Self I personally scribed for TREY CELAYA DO ([email or web address]) on 03/26/24 at 17:02. Electronically submitted by Loren Cavazos ([email or web address]). TREY CELAYA DO Mar 26, 2024 17:02
[2024-03-26 17:17] LABS: Basophils # (auto) 0 10 ^3/uL (0-0.2); Basophils % (auto) 0.3 % (0.0-2.0); Eosinophils # (auto) 0 10 ^3/uL (0-0.8); Eosinophils % (auto) 0.3 % (0.0-7.0); Hematocrit 48.3 % (41.0-53.0); Hemoglobin 15.8 g/dL (13.5-17.5); Mean Corpuscular Hemoglobin 29.6 pg (28.0-32.0); Mean Corpuscular Hgb Conc. 32.7 g/dL (32.0-36.0); Mean Corpuscular Volume 90.6 fL (80.0-100.0); Monocytes % (auto) 8.2 % (0.0-12.0); Neutrophils # (auto) 10.5 10 ^3/uL (1.6-8.6); Neutrophils % (auto) 83.2 % (37.0-80.0); Platelet Count (auto) 221 10^3/uL (140-450); Red Blood Cells 5.34 10^6/uL (4.5-5.90); Red Cell Distribution Width 15.5 % (11.8-14.3); White Blood Cell 12.6 10^3/uL (4.4-10.8)
[2024-03-26 17:30] LABS: Alanine Aminotransferase 28 U/L (7-40); Albumin 4.3 g/dL (3.2-4.8); Alkaline Phosphatase 61 U/L (46-116); Anion Gap 10 (5-15); Aspartate Aminotransferase 18 U/L (13-40); BUN/Creatinine Ratio 18.3 (10.0-20.0); Blood Urea Nitrogen 15 mg/dL (9-23); Calcium 9.9 mg/dL (8.7-10.4); Carbon Dioxide 26 mmol/L (20-31); Chloride 104 mmol/L (98-107); Potassium 4.6 mmol/L (3.5-5.1); Sodium 140 mmol/L (136-145)
[2024-03-26 17:31] LABS: Total Protein 6.5 g/dL (5.7-8.2)
[2024-03-26 17:34] LABS: Bilirubin, Total 0.2 mg/dL (0.2-1.0); Glucose 150 mg/dL (74-106)
[2024-03-26 17:36] LABS: Lactic Acid w/Reflex 2.5 mmol/L (0.4-2.0)
--- NOTE | 2024-03-26 18:37 | DVH ---
CHEST RADIOGRAPH Indication: sob Technique: Single frontal view of the chest was obtained Comparison: XY CHEST PORTABLE on DOS: 10/29/23, CHEST PORTABLE on DOS: 05/22/19, CHEST XRAY 1 VIEW on DO S: 05/21/19 FINDINGS: Lines and Tubes: None Lungs: Clear Pleura: No effusion. No pneumothorax. Cardiomediastinal contours: Unremarkable Bones: Unremarkable IMPRESSION: Clear lungs.
[2024-03-26] MEDS ORDERED: ONDANSETRON HCL 4 MG/2 ML VIAL IV PRN (19:45)
[2024-03-26] MEDS ORDERED: DEXTROSE (50%) 50ML SYRG IV PRN (19:45)
[2024-03-26 20:38] VITALS: BP 154/89; PULSE 110; RESP 18; O2SAT 97
[2024-03-26] MEDS: methylPREDNISolone SOD SUCC 125 MG/2 ML VL IV ONE (20:55)
[2024-03-26] MEDS: SODIUM CHLORIDE 0.9% 500 ML IV ONE (21:09)
--- NOTE | 2024-03-26 21:12 | DVHHP2 ---
History of Present Illness Reason for Visit: Shortness for breath History of Present Illness 73-year-old male presents for evaluation of shortness for breath. Patient with a history of COPD presents for evaluation of shortness for breath. Patient reports a one day history of worsening shortness for breath not being relieved w ith his inhaler and nebulizer at home. Denies chest pain or palpitations. No cough or fever. No other acute complaints reported. Past Medical History Dyslipidemia, COPD, mi, hypertension diabetes mellitus Past Surgical History Cholecystectomy and hernia repair Family History Noncontributory Smoke: No ALCOHOL: none Drugs: None Lives: with Family Review of Systems Review of Systems Review of systems are currently negative otherwise addressed HPI. Allergies: Coded Allergies: Penicillins (Verified Allergy, Unknown, 03/29/19) Medications Current Medications Medications Dose Ordered Sig/Cele Route Start Time Stop Time Status Last Admin Dose Admin Amlodipine Besylate 5 mg DAILY PO 03/27/24 10:00 Albuterol 2.5 mg Q6HPRN PRN NEB 03/26/24 19:45 Ipratropium [place] 0.5 mg Q6HPRN PRN NEB 03/26/24 19:45 Methylprednisolone Sodium Succinate 40 mg BID IV 03/26/24 22:00 Azithromycin 250 ml @ 125 mls/hr DAILY IV 03/27/24 10:00 Apixaban 2.5 mg BID PO 03/26/24 22:00 Aspirin 81 mg DAILY PO 03/27/24 10:00 Montelukast Sodium 10 mg HS PO 03/26/24 22:00 Atorvastatin Calcium 20 mg HS PO 03/26/24 22:00 Diagnostic Test (Pha) 1 strip ACHS 03/26/24 22:00 Insulin Human Regular ACHS SC 03/26/24 22:00 Dextrose 50 ml UD PRN IV 03/26/24 19:45 Ondansetron HCl 4 mg Q4HP PRN IV 03/26/24 19:45 Acetaminophen 650 mg Q6HP PRN PO 03/26/24 19:45 Exam Vital Signs Vital Signs Date Time Temp Pulse Resp B/P (MAP) Pulse Ox O2 Delivery O2 Flow Rate FiO2 03/26/24 20:38 110 18 154/89 97 4.0 36 03/26/24 16:51 Nasal Cannula* 03/26/24 16:14 97.8 Exam Gen: 73-year-old male in mild distress Skin: Warm, dry, normal color and texture, no rash. HEENT: Normocephalic atraumatic, mucous membranes moist and pink. Neck: Cervical and supraclavicular nodes normal without enlargement, trachea is midline, thyroid gland is normal without masses. Pulmonary: Rhonchi Cardiac: Regular rate and rhythm. No murmur Abdomen: Soft, nontender, nondistended, bowel sounds present all 4 quadrants, no guarding, no rigidity, no organomegaly. Extremities: No cyanosis, clubbing, no edema Neuro: Cranial nerves II through XII grossly intact, normal affect and speech, no focal motor deficits. Labs/Xrays ORDERING PHYSICIAN: TREY CELAYA DO PROCEDURE(s): CXRP - CHEST PORTABLE REASON: sob ORDER NUMBER(s): [id number], ACCESSION NUMBER(s): [id number] CHEST RADIOGRAPH Indication: sob Technique: Single frontal view of the chest was obtained Comparison: XY CHEST PORTABLE on DOS: 10/29/23, CHEST PORTABLE on DOS: 05/22/19, CHEST XRAY 1 VIEW on DOS: 05/21/19 FINDINGS: Lines and Tubes: None Lungs: Clear Pleura: No effusion. No pneumothorax. Cardiomediastinal contours: Unremarkable Bones: Unremarkable IMPRESSION: Clear lungs. 1 Labs Test 03/26/24 20:12 03/26/24 18:07 03/26/24 16:56 Range/Units Troponin I High Sensitivity 24 </=54 ng/L Lactic Acid Level 2.6 *H 0.4-2.0 mmol/L White Blood Count 12.6 H 4.4-10.8 10^3/uL Red Blood Count 5.34 4.5-5.90 10^6/uL Hemoglobin 15.8 13.5-17.5 g/dL Hematocrit 48.3 41.0-53.0 % Mean Corpuscular Volume 90.6 80.0-100.0 fL Mean Corpuscular Hemoglobin 29.6 28.0-32.0 pg Mean Corpuscular Hemoglobin Concent 32.7 32.0-36.0 g/dL Red Cell Distribution Width 15.5 H 11.8-14.3 % Platelet Count 221 140-450 10^3/uL Mean Platelet Volume 6.8 L 6.9-10.8 fL Neutrophils (%) (Auto) 83.2 H 37.0-80.0 % Lymphocytes (%) (Auto) 8.0 L 10.0-50.0 % Monocytes (%) (Auto) 8.2 0.0-12.0 % Eosinophils (%) (Auto) 0.3 0.0-7.0 % Basophils (%) (Auto) 0.3 0.0-2.0 % Neutrophils # (Auto) 10.5 H 1.6-8.6 10 ^3/uL Lymphocytes # (Auto) 1.0 0.4-5.4 10 ^3/uL Monocytes # (Auto) 1.0 0-1.3 10 ^3/uL Eosinophils # (Auto) 0 0-0.8 10 ^3/uL Basophils # (Auto) 0 0-0.2 10 ^3/uL Nucleated Red Blood Cells 0.0 % Sodium Level 140 136-145 mmol/L Potassium Level 4.6 3.5-5.1 mmol/L Chloride Level 104 98-107 mmol/L Carbon Dioxide Level 26 20-31 mmol/L Anion Gap 10 5-15 Blood Urea Nitrogen 15 9-23 mg/dL Creatinine 0.82 0.700-1.30 mg/dL Glomerular Filtration Rate Calc 92 >90 mL/min BUN/Creatinine Ratio 18.3 10.0-20.0 Serum Glucose 150 H 74-106 mg/dL Calcium Level 9.9 8.7-10.4 mg/dL Magnesium Level 2.0 1.6-2.6 mg/dL Total Bilirubin 0.2 0.2-1.0 mg/dL Aspartate Amino Transferase (AST) 18 13-40 U/L Alanine Aminotransferase (ALT) 28 7-40 U/L Alkaline Phosphatase 61 46-116 U/L B-Type Natriuretic Peptide 68.84 0-100 pg/mL Total Protein 6.5 5.7-8.2 g/dL Albumin 4.3 3.2-4.8 g/dL Assessment/Plan Assessment/Plan Assessment Acute on chronic hypoxic respiratory failure COPD exacerbation Diabetes mellitus Hypertension Plan Admit the patient to Med surge to the hospitalist Luisito berkowitz Azithromycin Resume home medications Continue treatment per orders. Plan discussed with: Patient My Orders Orders - ROSE ISAAC Procedure Category Date Status Time Amlodipine Tablet PHA 03/27/24 In Process (Norvasc Tablet) 10:00 Albuterol Medneb PHA 03/26/24 In Process (Ventolin Medneb) 19:45 Ipratropium Medneb PHA 03/26/24 In Process (Atrovent Medneb) 19:45 Methylprednisolone PHA 03/26/24 In Process Sod Succ (Solu Medrol 22:00 Azithromycin 500mg/ PHA 03/27/24 In Process 250ml (Zithromax 50 10:00 Azithromycin 500mg/ PHA 03/26/24 In Process 250ml (Zithromax 50 19:45 Apixaban (Eliquis) PHA 03/26/24 In Process 22:00 Aspirin Tablet PHA 03/27/24 In Process 10:00 Montelukast Tablet PHA 03/26/24 In Process (Singulair Tablet) 22:00 Atorvastatin (Lipitor) PHA 03/26/24 In Process 22:00 Basic Metabolic Panel LAB 03/27/24 Verified 04:00 Glucose Blood PHA 03/26/24 In Process (Accu-Chek Comfort 22:00 Insulin R (Human) PHA 03/26/24 In Process (Insulin R) 22:00 Dextrose 50% Syringe PHA 03/26/24 In Process 19:45 Admit ADMIT 03/26/24 Transmitted 19:44 Ondansetron Hcl PHA 03/26/24 In Process (Zofran) 19:45 Complete Blood Count LAB 03/27/24 Verified 04:00 Cardiac DIET 03/27/24 Transmitted Diet-2gna,Lofat,Lochol Breakfast Condition: Stable NAHMOI 03/26/24 In Process 19:44 Acetaminophen Tablet PHA 03/26/24 In Process (Tylenol Tablet) 19:45 Bedrest With Bathroom NAHOMI 03/26/24 In Process Privileg 19:44 Date of Service: Mar 26, 2024 Billing Provider: ROSE ISAAC Common Visit Codes: 11156-[id number] INP/OBS CARE (HIGH) ROSE ISAAC Mar 26, 2024 21:12
[2024-03-26] MEDS: AZITHROMYCIN 500MG/ 250ML 250 ML IV ONE (22:16)
[2024-03-26 23:10] VITALS: BP 108/75; PULSE 95; RESP 18; TEMP 97.6; O2SAT 94
[2024-03-27] VITALS (12 sets, daily range): BP systolic 118–143; BP diastolic 65–83; PULSE 79–103; RESP 16–20; TEMP 97.6–98; O2SAT 91–97
[2024-03-27] MEDS: APIXABAN 2.5 MG TAB PO SCH (00:01)
[2024-03-27] MEDS: ATORVASTATIN 20 MG TAB PO SCH (00:01)
[2024-03-27] MEDS: MONTELUKAST SODIUM 10 MG TAB PO SCH (00:01)
[2024-03-27] MEDS: ACCU-CHEK COMFORT CURVE STRIP VI SCH (00:02)
[2024-03-27] MEDS: methylPREDNISolone SOD SUCC 40 MG/ML VL IV SCH (00:02)
[2024-03-27] MEDS: InsuLIN REG 1unit/0.01ml Soln (100units/ml) SC SCH (00:08)
[2024-03-27] MEDS: ACETAMINOPHEN 325 MG TAB PO PRN (01:34)
[2024-03-27 06:56] LABS: Basophils # (auto) 0 10 ^3/uL (0-0.2); Eosinophils # (auto) 0 10 ^3/uL (0-0.8); Hematocrit 44.2 % (41.0-53.0); Hemoglobin 14.9 g/dL (13.5-17.5); Lymphocytes # (auto) 0.5 10 ^3/uL (0.4-5.4); Lymphocytes % (auto) 4.6 % (10.0-50.0); Mean Corpuscular Hemoglobin 30.2 pg (28.0-32.0); Mean Corpuscular Hgb Conc. 33.6 g/dL (32.0-36.0); Mean Corpuscular Volume 89.9 fL (80.0-100.0); Monocytes # (auto) 0.1 10 ^3/uL (0-1.3); Monocytes % (auto) 1.1 % (0.0-12.0); Neutrophils # (auto) 9.9 10 ^3/uL (1.6-8.6); Neutrophils % (auto) 94.3 % (37.0-80.0); Platelet Count (auto) 212 10^3/uL (140-450); Red Blood Cells 4.92 10^6/uL (4.5-5.90); Red Cell Distribution Width 15.6 % (11.8-14.3); White Blood Cell 10.5 10^3/uL (4.4-10.8)
[2024-03-27 07:16] LABS: Chloride 106 mmol/L (98-107); Potassium 4.3 mmol/L (3.5-5.1); Sodium 140 mmol/L (136-145)
[2024-03-27 07:17] LABS: Anion Gap 9 (5-15); Calcium 9.4 mg/dL (8.7-10.4); Carbon Dioxide 25 mmol/L (20-31)
[2024-03-27 07:22] LABS: BUN/Creatinine Ratio 15.9 (10.0-20.0); Blood Urea Nitrogen 13 mg/dL (9-23)
[2024-03-27 07:31] LABS: Glucose 206 mg/dL (74-106)
[2024-03-27 07:40] LABS: Urine Bacteria None Seen /hpf (None Seen); Urine WBC None Seen /hpf (0 - 3)
[2024-03-27 07:47] LABS: Urine Blood Negative /uL (Negative); Urine Clarity Clear (Clear); Urine Color Light-Yellow (Yellow); Urine Protein, UAD Negative (Negative); Urine Specific Gravity 1.014 (1.001-1.035); Urine Squamous Epithelial Cell None Seen /hpf (<5); Urine Urobilinogen Normal (Negative); Urine pH 5.5 (5.0-9.0)
[2024-03-27] MEDS: ASPirin 81 mg TAB PO SCH (09:25)
[2024-03-27] MEDS: AZITHROMYCIN 500MG/ 250ML 250 ML IV SCH (09:26)
[2024-03-27] MEDS: amLODIPine BESYLATE 5 MG TAB PO SCH (09:27)
--- NOTE | 2024-03-27 09:33 | ECG ---
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
--- NOTE | 2024-03-27 14:38 | ECG ---
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
[2024-03-27] MEDS: ALBUTEROL SULF 2.5 MG/0.5ML(0.5%) NEB SOLN NEB PRN (14:48)
[2024-03-27] MEDS: IPRATROPIUM BROM 0.5 MG/2.5ML INH SOL NEB PRN (14:48)
[2024-03-27] MEDS ORDERED: DOXY-286 PO (16:41)
[2024-03-27] MEDS ORDERED: PRED20TA2 PO (16:41)
--- NOTE | 2024-03-27 16:45 | DVHDS2 ---
Discharge Summary Date of Admission Mar 26, 2024 at 19:44 Date of Discharge: Mar 27, 2024 Admitting Diagnosis COPD Exacerbation Labs/Diagnostic Data: Laboratory Results Test 03/27/24 07:00 03/27/24 05:58 03/26/24 20:12 03/26/24 18:07 Urine Color Light-yellow (Yellow) Urine Clarity Clear (Clear) Urine pH 5.5 (5.0-9.0) Urine Specific [place] 1.014 (1.001-1.035) Urine Protein Negative (Negative) Urine Ketones Negative (Negative) Urine Blood Negative /uL (Negative) Urine Nitrite Negative (Negative) Urine Bilirubin Negative (Negative) Urine Urobilinogen Normal mg/dL (Negative) Urine Leukocyte Esterase Negative /uL (Negative) Urine RBC <1 /hpf (0 - 3) Urine WBC None seen /hpf (0 - 3) Urine Squamous Epithelial Cells None seen /hpf (<5) Urine Bacteria None seen /hpf (None Seen) Urine Glucose Normal mg/dL (Normal) White Blood Count 10.5 10^3/uL (4.4-10.8) Red Blood Count 4.92 10^6/uL (4.5-5.90) Hemoglobin 14.9 g/dL (13.5-17.5) Hematocrit 44.2 % (41.0-53.0) Mean Corpuscular Volume 89.9 fL (80.0-100.0) Mean Corpuscular Hemoglobin 30.2 pg (28.0-32.0) Mean Corpuscular Hemoglobin Concent 33.6 g/dL (32.0-36.0) Red Cell Distribution Width 15.6 % (11.8-14.3) Platelet Count 212 10^3/uL (140-450) Mean Platelet Volume 7.5 fL (6.9-10.8) Neutrophils (%) (Auto) 94.3 % (37.0-80.0) Lymphocytes (%) (Auto) 4.6 % (10.0-50.0) Monocytes (%) (Auto) 1.1 % (0.0-12.0) Eosinophils (%) (Auto) 0.0 % (0.0-7.0) Basophils (%) (Auto) 0.0 % (0.0-2.0) Neutrophils # (Auto) 9.9 10 ^3/uL (1.6-8.6) Lymphocytes # (Auto) 0.5 10 ^3/uL (0.4-5.4) Monocytes # (Auto) 0.1 10 ^3/uL (0-1.3) Eosinophils # (Auto) 0 10 ^3/uL (0-0.8) Basophils # (Auto) 0 10 ^3/uL (0-0.2) Nucleated Red Blood Cells 0.0 % Sodium Level 140 mmol/L (136-145) Potassium Level 4.3 mmol/L (3.5-5.1) Chloride Level 106 mmol/L (98-107) Carbon Dioxide Level 25 mmol/L (20-31) Anion Gap 9 (5-15) Blood Urea Nitrogen 13 mg/dL (9-23) Creatinine 0.82 mg/dL (0.700-1.30) Glomerular Filtration Rate Calc 92 mL/min (>90) BUN/Creatinine Ratio 15.9 (10.0-20.0) Serum Glucose 206 mg/dL (74-106) Calcium Level 9.4 mg/dL (8.7-10.4) Troponin I High Sensitivity 24 ng/L (</=54) Lactic Acid Level 2.6 mmol/L (0.4-2.0) Test 03/26/24 16:56 Magnesium Level 2.0 mg/dL (1.6-2.6) Total Bilirubin 0.2 mg/dL (0.2-1.0) Aspartate Amino Transferase (AST) 18 U/L (13-40) Alanine Aminotransferase (ALT) 28 U/L (7-40) Alkaline Phosphatase 61 U/L (46-116) B-Type Natriuretic Peptide 68.84 pg/mL (0-100) Total Protein 6.5 g/dL (5.7-8.2) Albumin 4.3 g/dL (3.2-4.8) Other Laboratory Tests 03/27/24 05:58 Brief Hx & Hospital Course: 73-year-old male presents for evaluation of shortness for breath. Patient with a history of COPD presents for evaluation of shortness for breath. Patient reports a one day history of worsening shortness for breath not being relieved with his inhaler and nebulizer at home. Patient is back on his home oxygen 2L. Will be discharged Doxy and Prednisone. Condition at Discharge: Stable Final Diagnosis/Problems List COPD Exacerbation Chronic Resp Failure Discharge Disposition: Home Discharge Instruct/Medications Diet: Regular Activity: Light activity Follow Up/Referral: PCP in 1 week Medications: Prednisone and Doxycycline Discharge Statement: "Patient was advised to return to the ER or call 911 if any headaches, dizziness, shortness of breath, chest pain, abdominal pain, bleeding, fevers, or worsening of medical condition. Patient was counseled about treatment plan, medications, possible side effects, patientverbalized understanding. All questions were answered to the best of my ability. This discharge took greater then 30 minutes in planning, reviewing documentation, counseling the patient, and discussing with other team members." ASSESSMENT ASSESSMENT Assessment Date of Service: Mar 27, 2024 Billing Provider: HOANG MATHUR MD Common Visit Codes: 17700-LXN/OBS DISCH DAY >30min HOANG MATHUR MD Mar 27, 2024 16:45
== END 2024-03-27 19:35 | disposition home or self-care (01) | DRG 189 ==
LOC: EDBD 16:14 → ER 16:14 → OVERFLOW 19:44 → EAST 19:50
PROVIDERS: ADMIT Internal Medicine; ATTEND Internal Medicine
DX: J96.21 Acute and chronic respiratory failure with hypoxia (principal); J44.1 Chronic obstructive pulmonary disease with (acute) exacerbation; R65.10 Systemic inflammatory response syndrome (SIRS) of non-infectious origin without acute organ dysfunction; E11.9 Type 2 diabetes mellitus without complications; I10 Essential (primary) hypertension; F17.210 Nicotine dependence, cigarettes, uncomplicated; E78.5 Hyperlipidemia, unspecified; Z90.49 Acquired absence of other specified parts of digestive tract; Z88.0 Allergy status to penicillin
CPT/HCPCS: 36415; 71045; 80048; 80053; 81001; 82962; 83605; 83735; 83880; 84484; 85025; 87081; 93005; 94640; 96361; 96365; 96375; G0378; J1815

== ENCOUNTER → 2024-08-08 | Outpatient (CLI) | payer OTHER, MEDICAID ==
[~2024-08-08] MED LIST changes: -ALBUAER3 IN; +ALBUTEROL SULF 2.5 MG/0.5ML(0.5%) NEB SOLN ONE; -AZIT-74 PO; +DOXY-286 PO; -FLUT1AER3 IN; -LORA-622 PO; -PRE5T PO
== END | disposition home or self-care (01) ==
LOC: RT 10:42
PROVIDERS: ATTEND Internal Medicine Pulmonary Disease
DX: J44.9 Chronic obstructive pulmonary disease, unspecified (principal); R06.00 Dyspnea, unspecified; R05.9 Cough, unspecified; F17.210 Nicotine dependence, cigarettes, uncomplicated; Z79.51 Long term (current) use of inhaled steroids
CPT/HCPCS: 94060; 94727; 94729

== ENCOUNTER → 2024-09-27 | Outpatient (CLI) | payer OTHER, MEDICAID ==
[~2024-09-27] MED LIST changes: -ALBUTEROL SULF 2.5 MG/0.5ML(0.5%) NEB SOLN ONE
[2024-09-27 07:59] LABS: Urine Protein, UAD 1+ (Negative)
[2024-09-27 08:14] LABS: Hematocrit 46.4 % (41.0-53.0); Hemoglobin 15.3 g/dL (13.5-17.5); Mean Corpuscular Hemoglobin 29.5 pg (28.0-32.0); Mean Corpuscular Volume 89.3 fL (80.0-100.0); Nucleated Red Blood Cells % 0.0 %
[2024-09-27 08:40] LABS: Alanine Aminotransferase 16 U/L (7-40); Albumin 4.4 g/dL (3.2-4.8); Alkaline Phosphatase 48 U/L (46-116); Anion Gap 10 (5-15); BUN/Creatinine Ratio 14.1 (10.0-20.0); Bilirubin, Total 0.5 mg/dL (0.2-1.0); Blood Urea Nitrogen 13 mg/dL (9-23); Calcium 9.7 mg/dL (8.7-10.4); Carbon Dioxide 25 mmol/L (20-31); Chloride 109 mmol/L (98-107); Cholesterol 122 mg/dL (< 200); Glucose 145 mg/dL (74-106); HDL Cholesterol 41 mg/dL (40-59); Potassium 3.9 mmol/L (3.5-5.1); Sodium 144 mmol/L (136-145); Total Protein 6.5 g/dL (5.7-8.2); Triglycerides 132 mg/dL (< 150)
[2024-09-27 08:48] LABS: Free T4 (Free Thyroxine) 1.07 ng/dL (0.89-1.76)
== END | disposition home or self-care (01) ==
LOC: LAB 07:33
PROVIDERS: ATTEND Internal Medicine
DX: I10 Essential (primary) hypertension (principal); E11.9 Type 2 diabetes mellitus without complications
CPT/HCPCS: 36415; 80053; 80061; 81001; 82607; 83036; 84439; 84443; 85025; 85652

== ENCOUNTER 2024-11-25 08:49 | Outpatient (CLI) | payer OTHER, MEDICAID | END 2024-11-25 17:00 | disposition home or self-care (01) | LOC: Rad HDHVI 08:49 | PROVIDERS: ATTEND Internal Medicine Cardiovascular Disease | DX: I07.1 Rheumatic tricuspid insufficiency (principal); I10 Essential (primary) hypertension | CPT/HCPCS: 93306 ==

== ENCOUNTER 2024-11-27 07:50 | Outpatient (CLI) | payer OTHER, MEDICAID ==
[~2024-11-27] VITALS: Ht 157.5 cm; Wt 74.8 kg
[2024-11-27] MEDS ORDERED: ADENOSINE 63 MG in GIVE UN-DILUTED 0 ML IV ONE (08:30)
[2024-11-27] MEDS ORDERED: ADENOSINE 90 MG/30 ML INJ IV ONE (08:48)
[2024-11-27] MEDS: methylPREDNISolone SOD SUCC 125 MG/2 ML VL IV ONE (09:44)
[2024-11-27] MEDS: methylPREDNISolone SOD SUCC 125 MG/2 ML VL ONE (09:46)
[2024-11-27] MEDS: ALBUTEROL SULF 2.5 MG/0.5ML(0.5%) NEB SOLN ONE (17:45)
== END 2024-11-27 17:00 | disposition home or self-care (01) ==
LOC: Rad HDHVI 07:50
PROVIDERS: ATTEND Internal Medicine Cardiovascular Disease
DX: Z01.810 Encounter for preprocedural cardiovascular examination (principal); I49.1 Atrial premature depolarization; I10 Essential (primary) hypertension; I48.91 Unspecified atrial fibrillation; E11.40 Type 2 diabetes mellitus with diabetic neuropathy, unspecified; J44.1 Chronic obstructive pulmonary disease with (acute) exacerbation; E78.00 Pure hypercholesterolemia, unspecified; R06.00 Dyspnea, unspecified; F17.210 Nicotine dependence, cigarettes, uncomplicated; Z86.718 Personal history of other venous thrombosis and embolism; Z82.49 Family history of ischemic heart disease and other diseases of the circulatory system
CPT/HCPCS: 78452; 93017; 94640; A9500; J0153; J2919

== ENCOUNTER 2025-01-08 11:50 | Outpatient (CLI) | payer OTHER, MEDICAID ==
[2025-01-08 12:00] VITALS: BP 136/72; PULSE 84; RESP 16; O2SAT 93
[2025-01-08 12:15] VITALS: BP 123/65; PULSE 83; RESP 16; O2SAT 95
[2025-01-08] MEDS ORDERED: ALBU1AER4 IN (13:22)
[2025-01-08] MEDS ORDERED: METF-371 PO (13:22)
[2025-01-08] MEDS ORDERED: ASPI325T6 PO (13:22)
[2025-01-08] MEDS ORDERED: PRE5T PO (13:51)
[2025-01-08] MEDS ORDERED: LORA-622 PO (13:51)
[2025-01-08] MEDS ORDERED: IPRA0.00 IN (13:51)
[2025-01-08] MEDS ORDERED: MONT4GRA7 PO (13:51)
[2025-01-08] MEDS ORDERED: FLUT1AER3 IN (13:56)
== END 2025-01-08 17:00 | disposition home or self-care (01) ==
LOC: CHF HDHVI 11:50
PROVIDERS: ATTEND Internal Medicine Cardiovascular Disease
DX: Z01.810 Encounter for preprocedural cardiovascular examination (principal)
CPT/HCPCS: 93005; G0463

== ENCOUNTER 2025-01-09 07:41 | Day surgery (SDC) | payer OTHER, MEDICAID ==
[2025-01-08 14:22] LABS: Hematocrit 45.6 % (41.0-53.0); Hemoglobin 14.9 g/dL (13.5-17.5); Mean Corpuscular Hemoglobin 29.4 pg (28.0-32.0); Mean Corpuscular Volume 89.9 fL (80.0-100.0); Nucleated Red Blood Cells % 0.1 %
[2025-01-08 14:34] LABS: INR 0.97 (0.9-1.15); Partial Thromboplastin Time 25.5 SEC (24.5-34.5); Prothrombin Time 10.3 sec (9.3-11.8)
[2025-01-08 14:46] LABS: Potassium 4.5 mmol/L (3.5-5.1)
[2025-01-08 14:47] LABS: Anion Gap 13 (5-15); Calcium 9.4 mg/dL (8.7-10.4); Carbon Dioxide 24 mmol/L (20-31)
[2025-01-08 14:52] LABS: BUN/Creatinine Ratio 14.3 (10.0-20.0); Blood Urea Nitrogen 13 mg/dL (9-23); Glucose 99 mg/dL (74-106)
[2025-01-08 14:54] LABS: Chloride 108 mmol/L (98-107); Sodium 145 mmol/L (136-145)
[2025-01-09] VITALS (7 sets, daily range): BP systolic 102–124; BP diastolic 55–68; PULSE 61–84; RESP 11–16; TEMP 98.3; O2SAT 90–93
[~2025-01-09] VITALS: Ht 157.5 cm; Wt 73.9 kg
[~2025-01-09 07:41] MED LIST changes: -ALBU108A5 INH; +ALBU1AER4 IN; -ASPI-543 PO; +ASPI325T6 PO; -DOXY-286 PO; +IPRA0.00 IN; +LORA-622 PO; -METF-370 PO; +METF-371 PO; -MONT-8 PO; +MONT4GRA7 PO; +PRE5T PO; -PRED20TA2 PO
[2025-01-09] MEDS ORDERED: IOHEXOL 350 MG/ML 100ML IJ ONE (08:28)
[2025-01-09] MEDS ORDERED: ANGIOMAX 250 MG VIAL IV ONE (08:44)
[2025-01-09] MEDS ORDERED: MIDAZOLAM HCL 2MG/2ML 2ml VIAL (1mg/ml) ONE (08:45)
[2025-01-09] MEDS ORDERED: LIDOCAINE 2%HCL (LOCAL ANESTH.) INJ 20ML MDV ONE (08:45)
[2025-01-09] MEDS ORDERED: SODIUM CHL 0.9% 0 ML ONE (08:45)
[2025-01-09] MEDS ORDERED: fentaNYL CITRATE 100 MCG/2 ML VL ONE (08:45)
--- NOTE | 2025-01-09 09:45 | DVHDS ---
DATE OF DISCHARGE: 01/09/2025 DISCHARGE DIAGNOSES: The patient with hypertension, COPD, history of tobacco use, abnormal stress test but left heart catheterization shows epicardial vessels are within normal limits. At this time, no surgical intervention is required. No catheter-based intervention is required. The patient's EF is around 60%, with LVEDP of 13 mmHg, with no gradient across the aortic valve. Thus, the patient with no significant epicardial disease. Conservative medical management, the patient may proceed with hip replacement. Earl Lara MD SA/RUSSELL TID: [id number] RECEIPT: [id number]
--- NOTE | 2025-01-09 09:48 | DVHHP ---
ADMIT DATE: 01/09/2025 HISTORY OF PRESENT ILLNESS: The patient who is 74 years old with a history of osteoarthritis, requires surgical intervention to undergo right hip replacement but needs cardiac clearance. Stress test shows the patient to have inferior and septal reversibility and because of the above presentation and findings, it is felt that the patient should undergo coronary angiography to define coronary anatomy. Echocardiogram, however, shows left ventricular ejection fraction to be normal with no segmental wall motion abnormality. Further recommendations after the angiogram. PERTINENT MEDICAL HISTORY: Significant for: * Diabetes, diabetic neuropathy, vasculopathy, nephropathy. * History of COPD. * History of tobacco use. REVIEW OF SYSTEMS: He denies any fever, chills, melena, hematochezia, hematemesis, hemoptysis, or hematuria. He denies any history of bleeding diathesis. No history of seizure disorder. No history of CVA. No history of any movement disorder. No history of irritable bowel syndrome or inflammatory bowel disease. No mixed connective tissue disease. Denies any history of any hematuria. He denies any history of any recent surgical intervention. He has severe osteoarthritis requiring hip replacement. PHYSICAL EXAMINATION: VITAL SIGNS: Blood pressure is 124/80, pulse 70, O2 saturation 98% on room air. HEENT: Pupils are reactive. Funduscopic exam shows no AV nicking. No exudates. No papilledema. Sclerae anicteric. Extraocular muscles are intact. Oral mucosa moist. Posterior pharynx without any exudates. Tympanic membranes are negative. NECK: No JVD appreciated. Carotid pulses are 2+ symmetrical. Normal upstroke and contour. No cervical adenopathy. No supraclavicular adenopathy. PULMONARY: Diffuse some scattered rhonchi. CARDIOVASCULAR: Regular rate without S3, without S4. PMI is not displaced. ABDOMEN: Soft and nontender. Normal bowel sounds. Stool guaiac negative. Liver approximately 5 cm by percussion. No epigastric tenderness. No suprapubic tenderness. No CVA tenderness. NEUROLOGIC: The patient is intact. EXTREMITIES: 1+ pulses bilaterally. ASSESSMENT AND PLAN: Thus, the patient with an abnormal stress Cardiolite, needs preop clearance. We will schedule the patient for left heart catheterization. RECOMMENDATIONS: Further recommendations after the angiogram. Earl Lara MD SA/PAT TID: [id number] RECEIPT: [id number]
--- NOTE | 2025-01-09 09:48 | DVHOP ---
DATE OF SURGERY: 01/09/2025 PROCEDURES PERFORMED: * Selective left and right coronary angiography. * Conscious sedation. * Right iliac angiography. DESCRIPTION OF PROCEDURE: The patient was prepped and draped under sterile condition. Xylocaine 1% was used to anesthetize the right groin. Using Cook needle, right femoral artery was engaged. Using Seldinger technique, a 6-Ethiopian sheath in the right femoral artery. Using 6-Ethiopian JL4 catheter and a 6-Ethiopian JR4 catheter, selective left and right coronary angiographies were performed. Using 6-Ethiopian pigtail catheter ventriculogram was done. Total contrast used was 45 mL of Optiray. Total fluoro time was 1 minute. RESULTS: * Left main without any flow-restrictive lesion. * Left anterior descending artery without any flow-restrictive lesion. * Circumflex without any flow-restrictive lesion. * Right coronary artery without any flow-restrictive lesion. * Left ventricular function was preserved with an estimated EF of 60% with left ventricular end-diastolic pressure of 13, left ventricular systolic pressure of 120, and no gradient across the aortic valve. At this time, there is no catheter-based or surgical intervention warranted. Continue conservative medical management. Follow up with me in one week. Earl Lara MD SA/KIM TID: [id number] RECEIPT: [id number]
== END 2025-01-09 12:05 | disposition home or self-care (01) ==
LOC: CATH 07:41
PROVIDERS: ATTEND Internal Medicine Cardiovascular Disease
DX: R94.39 Abnormal result of other cardiovascular function study (principal); I25.119 Atherosclerotic heart disease of native coronary artery with unspecified angina pectoris; J43.9 Emphysema, unspecified; E11.40 Type 2 diabetes mellitus with diabetic neuropathy, unspecified; E11.21 Type 2 diabetes mellitus with diabetic nephropathy; G47.30 Sleep apnea, unspecified; M16.11 Unilateral primary osteoarthritis, right hip; F41.9 Anxiety disorder, unspecified; F32.A Depression, unspecified; F41.0 Panic disorder [episodic paroxysmal anxiety]; Z79.82 Long term (current) use of aspirin; Z79.84 Long term (current) use of oral hypoglycemic drugs; Z79.899 Other long term (current) drug therapy; Z87.01 Personal history of pneumonia (recurrent); Z96.641 Presence of right artificial hip joint; Z98.890 Other specified postprocedural states; Z87.891 Personal history of nicotine dependence; Z88.0 Allergy status to penicillin; Z83.3 Family history of diabetes mellitus; Z82.5 Family history of asthma and other chronic lower respiratory diseases; Z80.8 Family history of malignant neoplasm of other organs or systems
CPT/HCPCS: 36415; 80048; 85025; 85610; 85730; 93458; C1760; C1769; C1894; J1644; J2250; J3010; Q9967; 99152